=== PATIENT | female | born 1990 | race Caucasian/White ===

== ENCOUNTER 2021-07-13 17:32 | Outpatient (CLI) | payer OTHER, SELFPAY ==
[2021-07-13 17:51] VITALS: BP 145/79; PULSE 69; RESP 16; TEMP 36.8; O2SAT 98; BMI 53.1
[2021-07-13] MEDS: 0.9% Saline Lock 10 ML Syringe IV (18:10)
[2021-07-13 18:45] VITALS: BP 129/68; PULSE 70; RESP 16; TEMP 37.2; O2SAT 100
[2021-07-13 19:28] VITALS: BP 128/77; PULSE 66; RESP 16; TEMP 37.3; O2SAT 100
== END 2021-07-13 19:36 | disposition home or self-care (01) ==
LOC: MS3OUT 17:32 → MS3 17:34
PROVIDERS: Referring Provider Nurse Practitioner Adult Health; Visit Provider Nurse Practitioner Adult Health
DX: Z23 Encounter for immunization (principal); U07.1 COVID-19
CPT/HCPCS: J7050; M0245; Q0245; A4216

== ENCOUNTER 2022-05-26 10:11 | Emergency (ER) | payer OTHER, SELFPAY ==
[2022-05-26 10:12] VITALS: BP 119/60; PULSE 81; RESP 18; TEMP 36.5; O2SAT 98; BMI 54.8
--- NOTE | 2022-05-26 10:39 | ED.VIS.BACK ---
HPI History of Present Illness Chief Complaint: Back Informant: patient Onset/Context/Timing Onset: Today and Hours Context: Sudden Onset Injury: twisting Timing: Continuous Quality: Sharp Location: Thoracic Current Severity: Mild Maximum Severity: Moderate Worsened by: improves with Movement Relieved by: Remaining Still Associated Symptoms Associated Symptoms: Negative for Numbness, Tingling, Radiation to Right Leg, Radiation to Left Leg, Fever, Abdominal Pain, Dysuria, Unable to Ambulate, Unable to Transfer, Urinary Retention, Urinary Incontinence, Constipation or Fecal Incontinence Narrative Narrative: 31-year-old female past medical history of anxiety. Prior cholecystectomy and gastric sleeve. States she got up early this morning with stretching and had sudden onset of left paraspinal thoracic discomfort like she pulled something. She denies any numbness or weakness. No fever. No falls or trauma. She initially took a Flexeril and Advil without any significant relief. She took a second Flexeril this morning because she thought her prescription was old so she borrowed 1 from her mother and again no significant relief. It is worse with movement. Prior similar symptoms: No Recent Illness/Hospitalization: No PFSH PFSH Medical History Anxiety Home Medications fluoxetine 40 mg capsule 40 mg PO DAILY 05/26/22 [History Last Taken Unknown] metaxalone 800 mg tablet 800 mg PO TID PRN muscle pain 7 days #21 tabs 05/26/22 [Rx Last Taken Unknown] Allergy/AdvReac Type Severity Reaction Status Date / Time adhesive Allergy Rash Verified 05/26/22 10:13 lisinopril AdvReac GI upset Verified 05/26/22 10:13 Social History Smoking Status: Never smoker ROS ROS ED ROS Narrative Denies recent illness. Review of Systems ROS Unobtainable: Denies due to encephalopathy Constitutional Constitutional ED: Denies chills or fever(s) Eyes Eyes: Denies blurry vision ENT ENT ED: Denies ear pain Cardiovascular Cardiovascular: Denies chest pain Respiratory/Chest Respiratory/Chest: Denies dyspnea Gastrointestinal Gastrointestinal: Denies abdominal pain Genitourinary Genitourinary ED: Denies dysuria or hematuria Musculoskeletal Musculoskeletal: Reports back pain; Denies arthralgias or neck pain Integumentary Denies abscess Neurologic Neurologic: Denies headache(s) Psychiatric Psychiatric: Denies anxiety Endocrine Endocrinology: Denies cold intolerance Hematologic/Lymphatic Hematologic/Lymphatic: Denies easy bleeding Allergic/Immunologic Allergic/Immunologic ED: Denies mouth swelling EXAM Physical Exam Narrative Exam Narrative: 29-year-old female no acute distress. Vital signs stable afebrile. HEENT exam unremarkable. Neck nontender. Lungs clear to auscultation bilaterally. Heart regular rate and rhythm rate about 80 no murmur. Chest wall nontender. Abdomen soft nontender. Moving all 4 extremities. 5/5 psychosocial rehabilitation counselor strength. Dorsi plantarflexion intact. Normal motor strength both upper and lower extremities. Neurologic exam normal. Back exam there is reproducible paraspinal back pain along the mid thoracic spine between the lower scapula and thoracic spine. No ecchymosis or bruising. No redness or warmth. No signs of trauma. The reproducible pain is consistent where she states she has discomfort. Const Vital Signs: 05/26/22 10:12 Temperature 97.7 F L Temperature Source Temporal Pulse Rate 81 Respiratory Rate 18 Blood Pressure 119/60 Blood Pressure Mean 79 Pulse Ox 98 Oxygen Delivery Method Room Air Positive well nourished, well developed and obese; Negative for cachectic, contractures or unkempt General Appearance ED: well developed and NAD; Negative for unkempt, cachectic, contractures or pallor Nutritional Appearance: obese; Negative for cachectic HEENT Reports moist mucous membranes; Denies dry mucous membranes Negative for trauma or tenderness Mouth ED: No dry mucous membranes Mouth: No dry mucous membranes Eyes PERRL and EOMs intact bilaterally General Eye ED: Negative for pale conjunctiva Neck no lymphadenopathy, supple and no JVD General: Negative for tenderness Thyroid: Negative for other Chest Wall Chest: Negative for other Resp normal respiratory effort and clear to auscultation bilaterally Effort and Inspection: Negative for pain with movement Auscultation: Negative for rales, rhonchi or wheezes Cardio regular rate, regular rhythm, S1 normal heart sound, S2 normal heart sound and no murmurs Palpation: Negative for palpable S3 Rate: Negative for bradycardia Rhythm: Negative for abnormal rhythm GI normal to inspection, nondistended, normoactive bowel sounds, soft to palpation, non-tender, non-distended and no masses Inspection: Negative for abdominal distention Auscultation: Negative for hyperactive bowel sounds Palpation: Negative for tender or guarding Back/Spine normal to inspection; Negative for no thoracic nor lumbar tenderness Back/Spine Narrative: Left paraspinal soft tissue tenderness along the mid thoracic spine. Cervical Spine: Negative for cervical spine tenderness and Negative for paracervical muscle tenderness Thoracic Spine / Upper Back: paraspinal muscle tenderness left Lumbar Spine / Lower Back: Negative for ROM limited Extremity normal to inspection and no clubbing, cyanosis or edema General Extremety ED: Negative for edema or tenderness General Extremity: Negative for edema Neuro oriented x3 and no sensory deficits noted Sensorium / Orientation: alert; Negative for confused, lethargic or stuporous Motor Exam: strength 5/5 throughout; Negative for strength abnormal Psych mental status grossly normal Appearance: Negative for unkempt Attitude: No agitated Mood & Affect: Negative for depressed, sad or tearful Skin no rashes or lesions noted and no wounds General Skin Exam: Negative for jaundice or pallor Lesions: No lesion noted Rashes: No rashes noted Trauma: Negative for abrasion Wounds: Negative for wounds noted MDM MDM MDM Narrative Medical decision making narrative: 31-year-old female was stretching this morning and has parathoracic back pain consistent with myofascial strain. Otherwise exam is benign. She has normal motor strength and sensation. She will be treated with IM Toradol. P.o. Valium x1. Written for prescription for Skelaxin sent to her pharmacy. Clinically and historically this is all consistent with musculoskeletal back pain. Myofascial strain of her back. Discharge Plan Triage Chief Complaint: Back ED Provider: Josh Radford Dx/Rx/DC Orders Clinical Impression: Back strain Instructions: ED Back Pain (Acute or Chronic), ED Back Sprain/Strain Prescriptions: New metaxalone 800 mg tablet 800 mg PO TID PRN (Reason: muscle pain) 7 Days Qty: 21 0RF No Action fluoxetine 40 mg capsule 40 mg PO DAILY Primary Care Provider: Francy Hickey NP Referrals: Francy Hickey NP, [facility] [Primary Care Provider] - 1 Week if not improving Activity Restrictions/Additional Instructions: Your history and exam are consistent with a pulled muscle in your back. Hot shower, warm bath, massage and anti-inflammatories like Motrin, Advil or ibuprofen to decrease the pain and inflammation. The muscle relaxant Skelaxin 1 pill 3 times a day for a week. You should start seeing improvement by the third day. Follow-up with your primary care provider if not improving. Disposition Disposition: Home, Self Care
[2022-05-26] MEDS: diazePAM 5 MG Tablet 10 MG PO (10:51)
[2022-05-26] MEDS: Ketorolac 60 MG/2 ML Vial IM (10:51)
== END 2022-05-26 11:11 | disposition home or self-care (01) ==
PROVIDERS: Emergency Provider Emergency Medicine; PCP Registered Nurse; Visit Provider Emergency Medicine
DX: S39.012A Strain of muscle, fascia and tendon of lower back, initial encounter (principal); F41.9 Anxiety disorder, unspecified; E66.9 Obesity, unspecified; X50.1XXA Overexertion from prolonged static or awkward postures, initial encounter
CPT/HCPCS: 96372; 99283

== ENCOUNTER → 2022-11-23 | Outpatient (CLI) | payer OTHER, SELFPAY ==
[2022-11-23 13:04] LABS: D-Dimer Quantitative (DVT/PE) < 0.27 FEU/ug/m (0.27-0.49)
== END | disposition home or self-care (01) ==
PROVIDERS: PCP Registered Nurse; Referring Provider Registered Nurse; Visit Provider Registered Nurse
DX: R06.02 Shortness of breath (principal)
CPT/HCPCS: 36415; 85379

== ENCOUNTER 2023-09-24 12:58 | Emergency (ER) | payer OTHER, SELFPAY ==
[2023-09-24 12:59] VITALS: BP 163/102; PULSE 80; RESP 16; TEMP 36.1; O2SAT 100; BMI 62.6
--- NOTE | 2023-09-24 13:11 | EKG12_ITS ---
Test Reason : CHEST PAIN Blood Pressure : / mmHG Vent. Rate : 081 BPM Atrial Rate : 081 BPM P-R Int : 138 ms QRS Dur : 084 ms QT Int : 362 ms P-R-T Axes : 031 030 034 degrees QTc Int : 420 ms Normal sinus rhythm Normal ECG Confirmed by GIRISH IBRAHIM, YNES ([id number]), publishing editor CORRINA ANDERSON ([id number]) on 09/25/2023 10:12:10 AM Referred By: Confirmed By:YNES STOUT MD
--- NOTE | 2023-09-24 13:11 | RAD_ITS ---
EXAM: XR CHEST, 1 VIEW CLINICAL INDICATION: back pain, chest pain TECHNIQUE: Frontal view of the chest. COMPARISON: 10.19.12 FINDINGS: LUNGS AND PLEURAL SPACES: Lower lobe atelectasis. No pneumothorax. No effusion. HEART: Unremarkable. Cardiac silhouette not enlarged. MEDIASTINUM: Central airways and mediastinal contour are unremarkable. BONES/JOINTS: Unremarkable. No acute fracture. SOFT TISSUES: Unremarkable. UPPER ABDOMEN: There is an elevated right hemidiaphragm. RAD/Chest 1 View (Portable) IMPRESSION: No acute findings in the chest. Electronically Signed: Jaret Mohamud MD at 14:27 EST ,
--- NOTE | 2023-09-24 13:12 | EX.ED.UPPERE ---
HPI History of Present Illness Chief Complaint: Upper Extremity Injury Detail of Chief Complaint: Back and chest pain Informant: patient Narrative Narrative: Patient presents to the emergency room with complaint of pain in her back and chest that started when she woke up this morning. She is not sure if the pain was there when she woke up but she just did a little tiny stretch and noticed significant pain around her right shoulder blade. At times she has had pain, radiating into the front of her chest and some numbness and tingling to her right arm. She denies recent travel or surgery. She has no heart history. Otherwise healthy. She has not had any injury otherwise. Patient states that she did an online telemetry doc visit and was prescribed Flexeril. Patient continues to complain of discomfort. [facility] Medical History Anxiety Home Medications fluoxetine 40 mg capsule 40 mg PO DAILY 05/26/22 [History Last Taken Unknown] metaxalone 800 mg tablet 800 mg PO TID PRN muscle pain 7 days #21 tabs 05/26/22 [Rx Last Taken Unknown] hydrocodone-acetaminophen 5-325mg 5mg-325mg 1 tab PO Q4H PRN PRN Pain 2 days #15 TABLETS 09/24/23 [Rx Last Taken Unknown] Allergy/AdvReac Type Severity Reaction Status Date / Time adhesive Allergy Rash Verified 09/24/23 13:34 lisinopril AdvReac GI upset Verified 09/24/23 13:34 Social History Smoking Status: Never smoker ROS ROS ED Review of Systems ROS Unobtainable: other Constitutional Constitutional ED: Reports lethargy; Denies chills, fever(s), sweats or weight loss Eyes Eyes: Denies blurry vision, change in vision or diplopia ENT ENT ED: Denies rhinorrhea or sore throat Cardiovascular Cardiovascular: Reports chest pain; Denies orthopnea or racing heartbeat Respiratory/Chest Respiratory/Chest: Denies cough, dyspnea, dyspnea on exertion, orthopnea or sputum Gastrointestinal Gastrointestinal: Denies abdominal pain, diarrhea, nausea or vomiting Genitourinary Genitourinary ED: Denies dysuria, hematuria or urinary frequency Musculoskeletal Musculoskeletal: Reports back pain; Denies arthralgias, myalgias or neck pain Integumentary Denies abscess, Abrasions or rash Neurologic Neurologic: Denies headache(s) or weakness Psychiatric Psychiatric: Denies anxiety, depression or suicidal thoughts Endocrine Endocrinology: Denies polydipsia, polyphagia or polyuria Hematologic/Lymphatic Hematologic/Lymphatic: Denies easy bleeding, easy bruising or lymphadenopathy Allergic/Immunologic Allergic/Immunologic ED: Denies mouth swelling, tongue swelling or urticaria EXAM Physical Exam Const Vital Signs: 09/24/23 12:59 Temperature 96.9 F L Temperature Source Temporal Pulse Rate 80 Respiratory Rate 16 Blood Pressure 163/102 H Blood Pressure Mean 122 Pulse Ox 100 Oxygen Delivery Method Room Air Positive well nourished and well developed General Appearance ED: well developed and NAD HEENT Reports TM's clear and moist mucous membranes normocephalic and atraumatic; Negative for trauma or tenderness Tympanic Membrane ED: Yes TM's clear Eyes PERRL and EOMs intact bilaterally General Eye ED: Negative for pale conjunctiva or scleral icterus Neck no lymphadenopathy, supple and no JVD General: Negative for tenderness Chest Wall inspection of chest normal and palpation of chest normal Chest: Negative for tenderness Resp normal respiratory effort and clear to auscultation bilaterally Effort and Inspection: Negative for respiratory distress or pain with movement Auscultation: Negative for rhonchi, wheezes or diminished lung sounds Cardio regular rate, regular rhythm, S1 normal heart sound, S2 normal heart sound and no murmurs Peripheral Pulses: pulses 2+ throughout GI normal to inspection, nondistended, normoactive bowel sounds, soft to palpation, non-tender, non-distended and no masses Back/Spine no CVA tenderness and no thoracic nor lumbar tenderness Back/Spine Narrative: Tenderness palpation over the thoracic paraspinal musculature medial to the right scapula. Patient also with some tenderness over inferior portion of the scapula and infraspinatus musculature. Pain somewhat reproduces her discomfort but not completely. Extremity normal to inspection General Extremety ED: Negative for edema General Extremity: Negative for edema Neuro oriented x3, CN's II-XII intact bilaterally, no sensory deficits noted and gait normal Sensorium / Orientation: awake, alert, oriented to person, oriented to place and oriented to time Motor Exam: strength 5/5 throughout and strength abnormal Psych mental status grossly normal Skin no rashes or lesions noted and no wounds MDM MDM MDM Narrative Medical decision making narrative: Patient presents with upper back pain without any trauma. Seen via telehealth and written for Flexeril. Patient states she has had similar pain before on the opposite side that just resolves after several days. IV line established on arrival. EKG obtained showed a sinus rhythm with a rate of 81 bpm with no acute ST segment changes. CBC with differential was normal. Chemistries unremarkable. Patient had a D-dimer that was normal. Troponin was normal. Chest x-ray unremarkable. Patient was told She had pain like this that they would get x-rays of her back and she is requesting x-rays of her back. I did obtain thoracic spine x-rays which were essentially unremarkable. This point suspect likely musculoskeletal etiology. Patient will be given a prescription for hydrocodone for pain. She is to continue with the Flexeril and heating pad. Advised to follow-up with her primary care physician within next 3 to 5 days. Lab Data Attestation: I reviewed the patient's lab results. Discharge Plan Triage Chief Complaint: Upper Extremity Injury ED Provider: Ana Marshall Dx/Rx/DC Orders Clinical Impression: Back pain Instructions: ED Back Pain (Acute or Chronic) Prescriptions: New hydrocodone-acetaminophen [hydrocodone-acetaminophen] 5-325 mg tablet 1 tab PO Q4H PRN PRN (Reason: Pain) 2 Days Qty: 15 0RF No Action fluoxetine 40 mg capsule 40 mg PO DAILY metaxalone 800 mg tablet 800 mg PO TID PRN (Reason: muscle pain) 7 Days Qty: 21 0RF Primary Care Provider: Francy Hickey NP Referrals: Francy Hickey NP, [facility] [Primary Care Provider] - 3-5 Days Disposition Disposition: Home, Self Care
--- NOTE | 2023-09-24 13:14 | NURSING ---
NO OLD EKGS
[2023-09-24 13:36] LABS: Absolute Lymphocyte Count 3.45 X10^3/uL (0.83-4.51); Absolute Neutrophil Count 6.7 X10^3/uL (2.0-7.7); Basophil# 0.06 X10^3/uL; Basophil% 0.6 % (0-1); Eosinophil# 0.08 X10^3/uL; Eosinophils% 0.7 % (0-5); Hematocrit 42.8 % (37-47); Hemoglobin 13.4 g/dL (12.0-15.0); Lymphocyte # 3.45 X10^3/ul (0.83-4.51); Lymphocyte % 31.9 % (19-41); Mean Corp Hgb Conc 31.3 g/dL (32-36); Mean Corpuscular Hgb 26.2 pg (27.0-32.0); Mean Corpuscular Volume 83.6 fL (81-99); Mean Platelet Vol. 10.8 fl (6.2-12.0); Monocyte# 0.47 X10^3/uL; Monocyte% 4.4 % (0-10); NRBC Flagged by Analyzer 0 % (0-5); Neutrophil # 6.71 X10^3/uL (2.7-7.7); Neutrophil % 62.1 % (47-70); Platelet Count 281 K/mm3 (150-450); RBC Distribution Width CV 13.7 % (11.6-14.6); Red Blood Count 5.12 M/mm3 (4.2-5.4); White Blood Count 10.8 K/mm3 (4.4-11.0)
[2023-09-24] MEDS: Ondansetron 4 MG/2 ML Vial IV (13:38)
[2023-09-24] MEDS: Morphine 4 MG/ML Syringe IV (13:38)
[2023-09-24 13:43] VITALS: BP 138/86; PULSE 84; RESP 16; O2SAT 98
[2023-09-24 13:47] LABS: D-Dimer Quantitative (DVT/PE) < 0.27 FEU/ug/m (0.27-0.49)
[2023-09-24 13:57] LABS: Anion Gap 4 (5-15); BUN 13 mg/dL (7-18); BUN/Creat Ratio 18.1 RATIO (10-20); Calcium,Total 9.1 mg/dL (8.5-10.1); Chloride 112 mmol/L (98-107); Creatinine, Serum 0.72 mg/dL (0.55-1.02); EST Glomerular Filtration Rate 99 mL/min (>60); Est Glom Filt Rate - Afr Amer 120 mL/min (>60); Estimated Creatinine Clearance 166.18 ml/min; Glucose 111 mg/dL (74-106); Potassium 3.8 mmol/L (3.5-5.1); Sodium Level 140 mmol/L (136-145); Troponin-I HS 5 pg/mL (3.0-54.0)
--- NOTE | 2023-09-24 14:04 | RAD_ITS ---
EXAM: XR THORACIC SPINE, 2 VIEWS CLINICAL INDICATION: back pain TECHNIQUE: Frontal and lateral views of the thoracic spine. COMPARISON: No relevant prior studies available. FINDINGS: VERTEBRAE: Unremarkable. Preserved vertebral body height. No fracture. No spondylolisthesis. Preservation of the normal thoracic kyphosis. No significant facet arthropathy. DISC SPACES: Unremarkable. Disc spaces are maintained. RAD/Thoracic Spine 2 Views IMPRESSION: No evidence of thoracic spinal fracture or spondylolisthesis. Electronically Signed: Jaret Mohamud MD at 14:27 EST ,
--- OUTSIDE RECORDS SUMMARY | 2023-09-24 14:22 | XMS RPT_ITS | CCD ---
Author Name Unknown Address [address] [place] [address] Organization [facility] Care Team Providers Care Dope Mixer Name Role Phone Raysa POSEY, Matilde Unavailable Unavailable Haagen FERRIS WHEEL OPERATOR.MILITARY COMMUNICATIONS SPECIALIST, Francy Primary Care Provider Gina POSEY, Adela Unavailable Unavailable Haagen FERRIS WHEEL OPERATOR.MILITARY COMMUNICATIONS SPECIALIST, Francy Primary Care Provider Gina POSEY, Adela Unavailable Unavailable Haagen FERRIS WHEEL OPERATOR.MILITARY COMMUNICATIONS SPECIALIST, Francy Primary Care Provider Gina POSEY, Adela Unavailable Haagen FERRIS WHEEL OPERATOR.MILITARY COMMUNICATIONS SPECIALIST, Francy Primary Care Provider Gina POSEY, Adela Unavailable Gina POSEY, Adela Unavailable HAAGEN, FRANCY Attending Unavailable HAAGEN, FRANCY Primary Care Unavailable HAAGEN, FRANCY Primary Care Unavailable HAAGEN, FRANCY Primary Care Unavailable HAAGEN, FRANCY Referring Unavailable HAAGEN, FRANCY Primary Care Unavailable HAAGEN, FRANCY Referring Unavailable HAAGEN, FRANCY Primary Care Unavailable HAAGEN, FRANCY Referring Unavailable HAAGEN, FRANCY Primary Care Unavailable HAAGEN, FRANCY Referring Unavailable HAAGEN, FRANCY Primary Care Unavailable HAAGEN, FRANCY Primary Care Unavailable HAAGEN, FRANCY Attending Unavailable HAAGEN, FRANCY Primary Care Unavailable STAMPER, JAMES Referring Unavailable HAAGEN, FRANCY Attending Unavailable HAAGEN, FRANCY Primary Care Unavailable HAAGEN, FRANCY Primary Care Unavailable HAAGEN, FRANCY Attending Unavailable Allergies Allergy Classification Reported Allergen(s) Allergy Type Date of Onset Reaction(s) Facility (20 sources) Adhesive Tape; Translations: [ADHESIVE TAPE (ROSINS)] Propensity to adverse reactions to substance 3 Rash, Intolerance [facility] (20 sources) Lisinopril; Translations: [LISINOPRIL] Drug Allergy 1 GI Upset [facility] Medications Current Medications Medication Drug Class(es) Dates Sig (Normalized) Sig (Original) amoxicillin 875 mg / clavulanate 125 mg oral tablet (4 sources) Penicillin-class Antibacterial Start: 05-17-2023 End: 05-24-2023 take 1 tablet by mouth twice daily amoxicillin-clav ulanic acid (AUGMENTIN) 875-125 mg per tablet Take 1 tablet by mouth two times a day for 7 days. 14 tablet 0 05/17/2023 05/24/2023 Active Completed/Discontinued Medications Medication Drug Class(es) Dates Sig (Normalized) Sig (Original) cefdinir 300 mg oral capsule (4 sources) Cephalosporin Antibacterial Start: 11-21-2022 End: 12-01-2022 take 1 capsule by mouth twice daily cefdinir (OMNICEF) 300 mg capsule Indications: Symptoms of upper respiratory infection (URI) , Acute recurrent sinusitis, unspecified location Take 1 capsule by mouth twice daily for 10 days. 20 capsule 0 11/21/2022 12/01/2022 Problems Active Problems Problem Classification Problem Date Documented Date Episodic/Chronic Anxiety disorders (20 sources) Mixed anxiety and depressive disorder; Translations: [Anxiety disorder, unspecified] Onset: 05-02-2018 05-02-2018 Chronic Diverticulosis and diverticulitis (20 sources) Diverticulitis; Translations: [Diverticulitis of intestine, part unspecified, without perforation or abscess without bleeding] Onset: 12-19-2016 12-19-2016 Chronic Esophageal disorders (20 sources) Gastroesophageal reflux disease; Translations: [Gastro-esophageal reflux disease without esophagitis] Onset: 02-05-2014 02-05-2014 Chronic Headache; including migraine (20 sources) Migraine with aura; Translations: [Migraine with aura, not intractable, without status migrainosus] Onset: 10-29-2015 10-29-2015 Chronic Mood disorders (1 source) Major depressive disorder, recurrent, moderate; Translations: [Major depressive disorder, recurrent episode, moderate (HCC)] Onset: 11-21-2022 Chronic Nutritional deficiencies (20 sources) Vitamin D deficiency; Translations: [Vitamin D deficiency, unspecified] Onset: 07-22-2019 07-22-2019 Chronic Other bone disease and musculoskeletal deformities (1 source) Costal chondritis; Translations: [Chondrocostal junction syndrome [Tietze]] Episodic Other circulatory disease (1 source) Respiratory symptom; Translations: [Other specified symptoms and signs involving the circulatory and respiratory systems] Episodic Other endocrine disorders (20 sources) Polycystic ovary syndrome; Translations: [Polycystic ovarian syndrome] Onset: 04-06-2011 04-06-2011 Chronic Other lower respiratory disease (1 source) Dyspnea; Translations: [Shortness of breath] Episodic Other nutritional; endocrine; and metabolic disorders (20 sources) Morbid obesity; Translations: [Morbid (severe) obesity due to excess calories] Onset: 02-20-2015 02-20-2015 Chronic Other nutritional; endocrine; and metabolic disorders (2 sources) Severe obesity; Translations: [Morbid (severe) obesity due to excess calories] Chronic Other nutritional; endocrine; and metabolic disorders (1 source) Body mass index 40+ - severely obese; Translations: [Morbid (severe) obesity due to excess calories] Chronic Other nutritional; endocrine; and metabolic disorders (2 sources) Morbid (severe) obesity due to excess calories; Translations: [Class 3 severe obesity due to excess calories with body mass index (BMI) of 60.0 to 69.9 in adult, unspecified whether serious comorbidity present (HCC)] Onset: 06-20-2022 Chronic Other nutritional; endocrine; and metabolic disorders (1 source) Body mass index (BMI) 60.0-69.9, adult; Translations: [Class 3 severe obesity due to excess calories with body mass index (BMI) of 60.0 to 69.9 in adult, unspecified whether serious comorbidity present (HCC)] Onset: 11-21-2022 Chronic Other nutritional; endocrine; and metabolic disorders (1 source) Body mass index (BMI) 50.0-59.9, adult; Translations: [Class 3 severe obesity due to excess calories without serious comorbidity with body mass index (BMI) of 50.0 to 59.9 in adult (HCC)] Onset: 06-20-2022 Chronic Other skin disorders (2 sources) Finding of neck region; Translations: [Localized swelling, mass and lump, neck] Episodic Other upper respiratory disease (1 source) Nasal sinus problem; Translations: [Other specified disorders of nose and nasal sinuses] 05-17-2023 Episodic Residual codes; unclassified (1 source) History of clinical finding in subject; Translations: [Personal history of other specified conditions] 03-10-2023 Episodic Spondylosis; intervertebral disc disorders; other back problems (2 sources) Acute low back pain; Translations: [Acute midline low back pain without sciatica] Episodic Past or Other Problems Problem Classification Problem Date Documented Da te Episodic/Chronic Administrative/social admission (20 sources) Patient encounter status; Translations: [Dietary counseling and surveillance] Onset: 07-19-2012 09-29-2016 Episodic Cardiac dysrhythmias (2 sources) Palpitations; Translations: [Palpitations] Onset: 11-23-2022 Episodic Diabetes mellitus without complication (3 sources) Increased glucose level; Translations: [Other abnormal glucose] Onset: 11-21-2022 Episodic Immunizations and screening for infectious disease (20 sources) Positive measurement finding; Translations: [Nonspecific reaction to tuberculin skin test without active tuberculosis] Onset: 10-28-2013 08-02-2021 Episodic Malaise and fatigue (3 sources) Fatigue; Translations: [Other fatigue] Onset: 11-23-2022 Episodic Other bone disease and musculoskeletal deformities (1 source) Chondrocostal junction syndrome [Tietze]; Translations: [Costochondritis] Onset: 11-23-2022 Episodic Other circulatory disease (20 sources) H/O: hypertension; Translations: [Personal history of other diseases of the circulatory system] Onset: 10-28-2013 08-02-2021 Episodic Other circulatory disease (1 source) Other specified symptoms and signs involving the circulatory and respiratory systems; Translations: [Symptoms of upper respiratory infection (URI)] Onset: 11-21-2022 Episodic Other circulatory disease (1 source) Personal history of other diseases of the circulatory system; Translations: [History of high blood pressure] Onset: 08-03-2021 Episodic Other lower respiratory disease (1 source) Shortness of breath; Translations: [SOB (shortness of breath)] Onset: 11-23-2022 Episodic Other skin disorders (1 source) Localized swelling, mass and lump, neck; Translations: [Localized swelling, mass and lump, neck] Onset: 11-24-2022 Episodic Other upper respiratory infections (6 sources) Acute pansinusitis; Translations: [Acute pansinusitis, unspecified] Onset: 11-21-2022 Episodic Otitis media and related conditions (2 sources) Acute right otitis media; Translations: [Otitis media, unspecified, right ear] Onset: 06-20-2022 Episodic Residual codes; unclassified (20 sources) H/O: miscarriage; Translations: [Personal history of other complications of , childbirth and the puerperium] Onset: 10-28-2013 08-02-2021 Episodic Screening and history of mental health and substance abuse codes (20 sources) H/O: depression; Translations: [Personal history of other mental and behavioral disorders] Onset: 10-28-2013 08-02-2021 Episodic Sprains and strains (2 sources) Sprain of unspecified ligament of left ankle, initial encounter; Translations: [Sprain of unspecified ligament of left ankle, initial encounter] Onset: 05-06-2017 Episodic Results Test Name Value Interpretation Reference Range Facil ity Vital Signs Date Time Vital Sign Value Performing Clinician Jesus olivas 05-17-2023 07:28-0400 Body temperature 97.2 [degF] Fabienne Valentine APRN.MILITARY COMMUNICATIONS SPECIALIST Work Phone: [facility] 05-17-2023 07:28-0400 Diastolic blood pressure 80 mm[Hg] Fabienne Valentine APRN.MILITARY COMMUNICATIONS SPECIALIST Work Phone: [facility] 05-17-2023 07:28-0400 Heart rate 80 /min Fabienne Valentine APRN.MILITARY COMMUNICATIONS SPECIALIST Work Phone: [facility] 05-17-2023 07:28-0400 Respiratory rate 16 /min Fabienne Valentine APRN.MILITARY COMMUNICATIONS SPECIALIST Work Phone: [facility] 05-17-2023 07:28-0400 SaO2% (BldA) [Mass fraction] 99 % Fabienne Valentine APRN.MILITARY COMMUNICATIONS SPECIALIST Work Phone: [facility] 05-17-2023 07:28-0400 Systolic blood pressure 122 mm[Hg] Fabienne Valentine APRN.MILITARY COMMUNICATIONS SPECIALIST Work Phone: [facility] 11-23-2022 10:21-0400 Diastolic blood pressure 88 mm[Hg] Francy Hickey FERRIS WHEEL OPERATOR.MILITARY COMMUNICATIONS SPECIALIST Work Phone: [facility] 11-23-2022 10:21-0400 Heart rate 95 /min Francy Haagen FERRIS WHEEL OPERATOR.MILITARY COMMUNICATIONS SPECIALIST Work Phone: [facility] 11-23-2022 10:21-0400 Respiratory rate 18 /min Francy Haagen FERRIS WHEEL OPERATOR.MILITARY COMMUNICATIONS SPECIALIST Work Phone: [facility] 11-23-2022 10:21-0400 SaO2% (BldA) [Mass fraction] 98 % Francy Haagen FERRIS WHEEL OPERATOR.MILITARY COMMUNICATIONS SPECIALIST Work Phone: [facility] 11-23-2022 10:21-0400 Systolic blood pressure 136 mm[Hg] Francy Haagen FERRIS WHEEL OPERATOR.MILITARY COMMUNICATIONS SPECIALIST Work Phone: [facility] 11-21-2022 10:02-0400 Body height 160.5 cm Francy Haagen FERRIS WHEEL OPERATOR.MILITARY COMMUNICATIONS SPECIALIST Work Phone: [facility] 11-21-2022 10:02-0400 Body weight 160.03 kg Francy Haagen FERRIS WHEEL OPERATOR.MILITARY COMMUNICATIONS SPECIALIST Work Phone: [facility] 11-21-2022 10:02-0400 Diastolic blood pressure 98 mm[Hg] Francy Haagen FERRIS WHEEL OPERATOR.MILITARY COMMUNICATIONS SPECIALIST Work Phone: [facility] 11-21-2022 10:02-0400 Heart rate 88 /min Francy Haagen FERRIS WHEEL OPERATOR.MILITARY COMMUNICATIONS SPECIALIST Work Phone: [facility] 11-21-2022 10:02-0400 Respiratory rate 18 /min Francy Haagen FERRIS WHEEL OPERATOR.MILITARY COMMUNICATIONS SPECIALIST Work Phone: [facility] 11-21-2022 10:02-0400 SaO2% (BldA) [Mass fraction] 97 % Francy Haagen FERRIS WHEEL OPERATOR.MILITARY COMMUNICATIONS SPECIALIST Work Phone: [facility] 11-21-2022 10:02-0400 Systolic blood pressure 142 mm[Hg] Francy Haagen FERRIS WHEEL OPERATOR.MILITARY COMMUNICATIONS SPECIALIST Work Phone: [facility] 06-20-2022 09:51-0500 Body temperature 99.19 [degF] Francy Haagen FERRIS WHEEL OPERATOR.MILITARY COMMUNICATIONS SPECIALIST Work Phone: [facility] 06-20-2022 09:51-0500 Body weight 154.22 kg Francy Haagen FERRIS WHEEL OPERATOR.MILITARY COMMUNICATIONS SPECIALIST Work Phone: [facility] 06-20-2022 09:51-0500 Diastolic blood pressure 84 mm[Hg] Francy Haagen FERRIS WHEEL OPERATOR.MILITARY COMMUNICATIONS SPECIALIST Work Phone: [facility] 06-20-2022 09:51-0500 Heart rate 93 /min Francy Haagen FERRIS WHEEL OPERATOR.MILITARY COMMUNICATIONS SPECIALIST Work Phone: [facility] 06-20-2022 09:51-0500 Respiratory rate 18 /min Francy Haagen FERRIS WHEEL OPERATOR.MILITARY COMMUNICATIONS SPECIALIST Work Phone: [facility] 06-20-2022 09:51-0500 SaO2% (BldA) [Mass fraction] 99 % Francy Hickey FERRIS WHEEL OPERATOR.MILITARY COMMUNICATIONS SPECIALIST Work Phone: [facility] 06-20-2022 09:51-0500 Systolic blood pressure 126 mm[Hg] Francy Haagen FERRIS WHEEL OPERATOR.MILITARY COMMUNICATIONS SPECIALIST Work Phone: [facility] 05-27-2022 11:21-0400 Diastolic blood pressure 64 mm[Hg] Filomena Zurlaurack FERRIS WHEEL OPERATOR.MILITARY COMMUNICATIONS SPECIALIST Work Phone: [facility] 05-27-2022 11:21-0400 Heart rate 64 /min Filomena Salazar FERRIS WHEEL OPERATOR.MILITARY COMMUNICATIONS SPECIALIST Work Phone: [facility] 05-27-2022 11:21-0400 Respiratory rate 18 /min Filomena Lujanck FERRIS WHEEL OPERATOR.MILITARY COMMUNICATIONS SPECIALIST Work Phone: [facility] 05-27-2022 11:21-0400 Systolic blood pressure 132 mm[Hg] Filomena Zurawick FERRIS WHEEL OPERATOR.MILITARY COMMUNICATIONS SPECIALIST Work Phone: [facility] 05-06-2022 13:09-0400 Body weight 151.05 kg Francy Haguevara FERRIS WHEEL OPERATOR.MILITARY COMMUNICATIONS SPECIALIST Work Phone: [facility] Encounters Encounter Date Encounter Type Care Provider Facility Start: 09-24-2023 End: 09-24-2023 ambulatory Wilbur Hamilton FERRIS WHEEL OPERATOR.MILITARY COMMUNICATIONS SPECIALIST Work Phone: Telemedicine Procedures Date Procedure Procedure Detail Performing Clinician Start: 11-24-2022 Us soft tissue head & neck real time imge docm Francy Hickey FERRIS WHEEL OPERATOR.MILITARY COMMUNICATIONS SPECIALIST Work Phone: Start: 11-23-2022 End: 11-23-2022 Culture bacterial quanttative colony count urine Francy Hickey FERRIS WHEEL OPERATOR.MILITARY COMMUNICATIONS SPECIALIST Work Phone: Start: 11-23-2022 Urnls dip stick/tabl et rgnt auto w/o microscopy Francy Hickey FERRIS WHEEL OPERATOR.MILITARY COMMUNICATIONS SPECIALIST Work Phone: Start: 11-21-2022 SARSCOV2 & INF A&B AMP PRB Francy Hickey FERRIS WHEEL OPERATOR.MILITARY COMMUNICATIONS SPECIALIST Work Phone: Start: 06-20-2022 Hemoglobin A1c/Hemoglobin.total in Blood Francy Hickey FERRIS WHEEL OPERATOR.MILITARY COMMUNICATIONS SPECIALIST Work Phone: Start: 05-06-2022 PFIZER-BIONTECH COVI D-19 BIVALENT BOOSTER VACCINE, AGE 12+ YR Drake Allen DO Work Phone: Plan of Treatment Date Care Activity Detail Author Start: 03-16-2028 Urine microalbumin profile [facility] Start: 03-04-2024 PAP TESTING PAP TESTING [facility] Start: 03-04-2024 Screening for malign ant neoplasm of cervix Pap Testing [facility] Start: 09-13-2023 End: 12-13-2023 25-hydroxyvitamin D3 [Mass/volume] in Serum or Plasma VITAMIN D 25 HYDROXY Lab Routine Vitamin D deficiency Expected: 09/13/2023, Expires: 12/13/2023 [facility] Work Phone: Immunizations Immunization Date Immunization Notes Care Provider Em [facility] 06-05-2023 influenza virus vaccine, unspecified formulation Adela Fuentes RN Work Phone: [facility] 05-06-2022 COVID-19 booster vaccine, age 12+ yr, bivalent (PFIZER-BIONTECH) [place] Nurse Work Phone: [facility] Work Phone: 05-06-2022 influenza virus vaccine, unspecified formulation Filomena Zurfaina FERRIS WHEEL OPERATOR.MILITARY COMMUNICATIONS SPECIALIST Work Phone: [facility] 05-28-2021 influenza virus vaccine, unspecified formulation Madonna Valentino [facility] 09-10-2020 COVID-19 vaccine, fu ll dose (MODERNA) Madonna Valentino [facility] 08-13-2020 COVID-19 vaccine, fu ll dose (MODERNA) Madonna Avelar [facility] 05-31-2018 influenza virus vaccine, unspecified formulation Madonna Fossabhinavlucho [facility] 03-16-2018 tetanus toxoid, redu whitney diphtheria toxoid, and acellular pertussis vaccine, adsorbed Madonna Avelar [facility] Work Phone: 05-16-2017 influenza virus vaccine, unspecified formulation Madonna Susanalucho [facility] 05-10-2016 influenza virus vaccine, unspecified formulation Madonna Avelar [facility] 05-20-2015 influenza virus vaccine, unspecified formulation Madonna Avelar [facility] 05-13-2013 influenza virus vaccine, unspecified formulation Madonna Frudae [facility] Work Phone: 05-07-2012 influenza virus vaccine, live, attenuated, for intranasal use Madonna Avelar [facility] 06-07-2011 influenza virus vaccine, whole virus Madonna Avelar [facility] 05-07-2011 influenza virus vaccine, unspecified formulation Madonna Valentino [facility] 04-06-2011 human papilloma viru s vaccine, quadrivalent Madonna Avelar [facility] Work Phone: 04-03-2008 hepatitis B vaccine, adult dosage Madonna Avelar [facility] 04-03-2008 human papilloma viru s vaccine, quadrivalent Madonna Avelar [facility] 04-03-2008 hepatitis B vaccine, unspecified formulation Adela Fuentes [facility] 02-13-2008 hepatitis B vaccine, adult dosage Madonna Avelar [facility] Work Phone: 02-13-2008 human papilloma viru s vaccine, quadrivalent Madonna Avelar [facility] Work Phone: 02-13-2008 tetanus toxoid, redu whitney diphtheria toxoid, and acellular pertussis vaccine, adsorbed Madonna Avelar [facility] Work Phone: 03-26-2002 measles, mumps and rubella virus vaccine Madonna Avelar [facility] Work Phone: 08-09-1994 DTP-Haemophilus influenzae type b conjugate vaccine Madonna Avelar [facility] Work Phone: 08-09-1994 poliovirus vaccine, inactivated Madonna Avelar [facility] Work Phone: 03-05-1991 DTP-Haemophilus influenzae type b conjugate vaccine Madonna Avelar [facility] Work Phone: 03-05-1991 poliovirus vaccine, inactivated Madonna Avelar [facility] Work Phone: 12-04-1990 haemophilus influenz ae type b vaccine, PRP-D conjugate Madonna Avelar [facility] Work Phone: 12-04-1990 measles, mumps and rubella virus vaccine Madonna Avelar [facility] Work Phone: 08-16-1990 haemophilus influenz ae type b vaccine, PRP-D conjugate Madonna Avelar [facility] Work Phone: 02-15-1990 DTP-Haemophilus influenzae type b conjugate vaccine Madonna Avelar [facility] Work Phone: 1989 DTP-Haemophilus influenzae type b conjugate vaccine Madonna Avelar [facility] Work Phone: 1989 poliovirus vaccine, inactivated Madonna Avelar [facility] Work Phone: 1989 DTP-Haemophilus influenzae type b conjugate vaccine Madonna Avelar [facility] Work Phone: 1989 poliovirus vaccine, inactivated Madonna Avelar [facility] Work Phone: Payers Date Payer Category Payer Private Health Insurance EHP AET NA EHP STAFF/NON STAFF / EHP [facility] [id number] 2021-Present [address] [place] [address] EPO [id number] 2021 Private Health Insurance [id number] 2021 Unknown [id number] 2019 Unknown [employer] [id number] 08/07/2019-Present [address] [place] [address] Indemnity [id number] 12-26-2017 Unknown ATTN PT FINANCIA L S SELF PAY DD5 SELF 12/26/2017-Present [address] [place] [address] Indemnity SELF [id number] 02-18-2009 Unknown [id number] 02-18-2009 Unknown [id number] Social History Date Type Detail Facility Start: 05-27-2022 Tobacco smoking stat [facility] Never smoked tobacco [facility] Start: 10-01-2021 End: 09-24-2023 Alcohol intake Current drinker of alcohol (finding) [facility] Start: 07-27-2021 History SDOH Alcohol Frequency 2 [facility] Start: 07-27-2021 History SDOH Alcohol Std Drinks 1 [facility] Start: 10-28-2013 History SDOH Alcohol Comment occassional wine, NOT WHILE [facility] Start: 07-27-2021 History SDOH Social Connections Phone 5 [facility] Start: 07-27-2021 History SDOH Social Connections Living 3 [facility] Start: 12-26-2019 Education 14 [facility] Start: 1990 Sex Assigned At Not on file C [facility] Start: 05-27-2022 Tobacco use and exposure Smoke less tobacco non-user [facility] Start: 05-17-2022 End: 05-27-2022 Exposure to SARS-CoV-2 (event) Not sure [facility] Start: 07-27-2021 End: 06-05-2023 History of Social function [facility] Start: 07-27-2021 End: 06-05-2023 Social connection and isolation panel [facility] Do you belong to any clubs or organizations such as episcopalian groups, unions, fraternal or athletic groups, or school groups? Yes [facility] Are you now , , , , never or living with a partner? [facility] How often to you hav e a drink containing alcohol? Monthly or less [facility] How many standard dr inks containing alcohol do you have on a typical day? 1 or 2 [facility] How often do you hav e 6 or more drinks on 1 occasion? Never [facility] How hard is it for y ou to pay for the very basics like food, housing, medical care, and heating Not hard at all [facility] Do you feel stress - tense, restless, nervous, or anxious, or unable to sleep at night because your mind is troubled all the time - these days [OSQ] Very much [facility] (I/We) worried wheth er (my/our) food would run out before (I/we) got money to buy more. Never true [facility] In the past 12 month s, was there a time when you were not able to pay the mortgage or rent on time? No [facility] Clinical Notes 12-24-2014 to 09-24-2023 Patient InstructionsWilbur Hamilton APRN.CNP - 09/24/2023 7:28 AM ESTEHP Outreach Note - Adela Fuentes RN - 09/13/2023 11:48 AM ESTPatient InstructionsPatient InstructionsPatient Instructions Note Date & Type Note Facility 09-24-2023 Instructions Wilbur Hamilton APRN.CNP - 09/24/2023 7:37 AM EST Would continue other supportive and symptomatic treatments as discussed documented in this encounter [facility] 09-24-2023 History of Presen t illness Narrative Telemedicine Visit - Distance Health Virtual Visit Note Patient seen on [email or web address] Video Visit platform. Location of patient: [place] Francy Hickey APRN.CNP History of Present Illness Yocasta Bains is a 33 year old female who reports she this morning she was stretching in bed and developed right and left upper back pain, around her shoulder blades. Denies other specific injury or trauma. Has had similar in the past. Took Aleve with some relief but reports the spasms are the worst part. ROM to both shoulders d/t pain, can perform full ROM but very painful. PAST MEDICAL HISTORY Diagnosis Date Anemia Closed fracture of unspecified part of radius with ulna(813.83) 02/2001 LEFT Depression 12/19/2012 Essential hypertension, benign LGSIL on Pap smear of cervix Migraine with aura and without status migrainosus, not intractable 10/29/2015 Obesity, morbid (more than 100 lbs over ideal weight or BMI > 40) (HCC) 05/08/2012 Polycystic ovarian disease Pyelonephritis AGE 5 Snoring 05/08/2012 PAST SURGICAL HISTORY Procedure Laterality Date APPENDECTOMY 2000 GASTRIC BYPASS HX 09/2011 LAPAROSCOPIC CHOLECYSTECTOMY 12/29/03 MIDLINE INSERTION/CONSULT 09/26/2012 MIDLINE INSERTION/CONSULT 10/11/2012 FAMILY HISTORY Problem Relation Age of Onset Hypertension Mother Hyperlipidemia Mother other (diverticulitis) Mother Hypertension Father Prostate Cancer Father Heart Attack Father Hyperlipidemia Father Diabetes Father Hypertension Maternal Grandmother Cataract Maternal Grandmother Heart Paternal Grandfather DE other (Other) Maternal Grandfather RENAL STONES No Known Problems Sister Diabetes Paternal Grandmother Blindness Paternal Grandmother Macular Degen Paternal Grandmother Social History Tobacco Use Smoking status: Never Smokeless tobacco: Never Substance Use Topics Alcohol use: Yes Comment: occassional wine, NOT WHILE Drug use: No Current Outpatient Medications Medication Sig FLUoxetine (PROZAC) 40 mg capsule Take 1 capsule by mouth once daily. scopolamine (TRANSDERM-SCOP) patch 1.5 mg/72 hr (delivers 1 mg over 3 days) Apply 1 Patch as directed every 72 hours. Apply patch to skin behind ear 4hrs prior to travel. cholecalciferol, Vitamin D3, (VITAMIN D3) 1,250 mcg (50,000 unit) cap capsule Take 1 capsule by mouth one time a week. metaxalone (SKELAXIN) 800 mg tablet Take 800 mg by mouth three times daily. cholecalciferol (VITAMIN D-3) 2,000 unit tablet Take 1 tablet by mouth once daily. esomeprazole (NEXIUM) 40 mg capsule Take 1 capsule by mouth once daily. SUMAtriptan (IMITREX) 50 mg tablet 1 tablet by mouth as needed for migraine. May repeat every 2 hrs as needed for migraine (max 4/day) levonorgestrel (MIRENA) 20 mcg/24 hr (5 years) IUD Inserted in office MULTIVIT-MINERALS/FERROUS FUM (MULTI VITAMIN ORAL) Take by mouth once daily. No current facility-administered medications for this visit. ALLERGIES Allergen Reactions Lisinopril GI Upset Tape [Adhesive Tape* Rash, Intolerance Video Exam (Examination performed via Video enabled technology) General appearance: Alert, oriented, pleasant, in NAD :Yes Ill appearing :No Lethargic appearing :No Respiratory distress :No Able to raise both arms above her head but with increased pain ASSESSMENT/PLAN: 1. Upper back pain - ICD9: 724.5, ICD10: M54.9 - CYCLOBENZAPRINE 10 MG TABLET Appears consistent with sprain/strain or similar soft tissue injury given characteristics, location and lack of specific injury or trauma. She has used SMR in the past with good relief, feel reasonable to try again and recommended she continue NSAIDs and topical treatments. PLAN: - Red flags discussed for need for in person care - All questions answered Wilbur Hamilton, ROSI.MILITARY COMMUNICATIONS SPECIALIST I have communicated my name and active licensure. The patient's identity and physical location were verified at the time of this visit. Either the patient or their legal group sales representative has been informed of the risks and benefits of -- and alternatives to -- treatment through a remote evaluation and consents to proceed with the evaluation remotely. If you let us know who your primary care provider is, we will send them a notification of today's visit through our electronic medical records system. Since not all providers have access to our notifications, we strongly encourage you to share the following record of today's visit with your primary care provider at your next visit. This will help in providing you the best care. If you do not have an established Primary Care physician and would like to continue care with a [facility] Virtual Primary Care physician, please ask your provider to place a Establish Primary Care order. Use [employer] to manage your care, wherever you are, 27/02, on your mobile device or computer. [employer] connects you to [employer] so you can access all your health information in one place and also schedule and request virtual appointments with primary care providers. documented in this encounter [facility] 09-13-2023 Miscellaneous Notes 09/13/23: emailed program update [email or web address] follow up and resources-Scheduled next outreach in December due to this coronary care unit nurse will be out of the office and member is not moving int change habits. Last ov: 06/05/23-PCP Health visit form needed: no 09/13/23 WEIGHT GOAL 330 lbs 4 BMI Points Last 3 Encounter BP Readings: Date: BP: 06/05/2023 128/84-PCP 05/17/2023 122/80 11/28/2022 110/70 Last 3 LDL readings: LDL Cholesterol (mg/dL) Date Value 07/20/2019 95 07/05/2018 84 09/28/2016 91 LDL Cholesterol, Nonfasting (mg/dL) Date Value 12/23/2020 98 MEDICATIONS PER RX DATABASE Not taking phentermine consistently Adherent with medication refills N/A Date Verified 09/13/2023 Is member submitting receipts for Reimbursement N/A Is member eligible for medication reimbursement No Is Employee Health Plan primary Yes Member resides in state of [place] (located in member inquiry under [employer]) documented in this encounter [facility] 07-12-2023 Miscellaneous Notes 07/12/23: emailed program update request WEIGHT GOAL 330 lbs 4 BMI Points Last OV: 06/05/23-PCP Last 3 Encounter BP Readings: Date: BP: 06/05/2023 128/84-PCP 05/17/2023 122/80 11/28/2022 110/70 Last 3 LDL readings: LDL Cholesterol (mg/dL) Date Value 07/20/2019 95 07/05/2018 84 09/28/2016 91 LDL Cholesterol, Nonfasting (mg/dL) Date Value 12/23/2020 98 MEDICATIONS PER RX DATABASE Phentermine Adherent with medication refills N/A Date Verified 07/12/2023 Is member submitting receipts for Reimbursement N/A Is member eligible for medication reimbursement No Is Employee Health Plan primary Yes documented in this encounter [facility] 06-05-2023 Note HNO ID: [id number] Author: Francy Hickey APRN.MILITARY COMMUNICATIONS SPECIALIST Service: ? Author Type: Nurse Practitioner Type: Progress Notes Filed: 06/05/2023 1:16 PM Note Text: This is a 32 year old female who presents today with: Patient presents with: Recheck: Follow up HISTORY OF PRESENT ILLNESS: Yocasta Bains is a 32 year old female. Patient presents with: Recheck: Follow up Pt presents today to discuss adipex. Her spouse is taking mounjaro, which has been helpful, but they are paying out of pocket for the mediation. Can't afford to both be taking. Refers adipex has worked in the past. Signed up for weight watchers. Maybe getting a dog today, so plans on being more active. Eats well throughout the early day, but then snacking is her downfall. Works from home. She is trying to be proactive and lose weight before she develops any comorbidities. PAST MEDICAL HISTORY: PAST MEDICAL HISTORY Diagnosis Date Anemia Closed fracture of unspecified part of radius with ulna(813.83) 02/2001 LEFT Depression 12/19/2012 Essential hypertension, benign LGSIL on Pap smear of cervix Migraine with aura and without status migrainosus, not intractable 10/29/2015 Obesity, morbid (more than 100 lbs over ideal weight or BMI > 40) (HCC) 05/08/2012 Polycystic ovarian disease Pyelonephritis AGE 5 Snoring 05/08/2012 PAST SURGICAL HISTORY Procedure Laterality Date APPENDECTOMY 2000 GASTRIC BYPASS HX 09/2011 LAPAROSCOPIC CHOLECYSTECTOMY 12/29/03 MIDLINE INSERTION/CONSULT 09/26/2012 MIDLINE INSERTION/CONSULT 10/11/2012 ALLERGIES Lisinopril and Tape [Adhesive Tape (Rosins)] MEDICATIONS Current Outpatient Medications Medication Sig scopolamine (TRANSDERM-SCOP) patch 1.5 mg/72 hr (delivers 1 mg over 3 days) Apply 1 Patch as directed every 72 hours. Apply patch to skin behind ear 4hrs prior to travel. cholecalciferol, Vitamin D3, (VITAMIN D3) 1,250 mcg (50,000 unit) cap capsule Take 1 capsule by mouth one time a week. metaxalone (SKELAXIN) 800 mg tablet Take 800 mg by mouth three times daily. FLUoxetine (PROZAC) 40 mg capsule Take 1 capsule by mouth once daily. cholecalciferol (VITAMIN D-3) 2,000 unit tablet Take 1 tablet by mouth once daily. esomeprazole (NEXIUM) 40 mg capsule Take 1 capsule by mouth once daily. SUMAtriptan (IMITREX) 50 mg tablet 1 tablet by mouth as needed for migraine. May repeat every 2 hrs as needed for migraine (max 4/day) levonorgestrel (MIRENA) 20 mcg/24 hr (5 years) IUD Inserted in office MULTIVIT-MINERALS/FERROUS FUM (MULTI VITAMIN ORAL) Take by mouth once daily. No current facility-administered medications for this visit. FAMILY HISTORY Problem Relation Age of Onset Hypertension Mother Hyperlipidemia Mother other (diverticulitis) Mother Hypertension Father Prostate Cancer Father Heart Attack Father Hyperlipidemia Father Diabetes Father Hypertension Maternal Grandmother Cataract Maternal Grandmother Heart Paternal Grandfather DE other (Other) Maternal Grandfather RENAL STONES No Known Problems Sister Diabetes Paternal Grandmother Blindness Paternal Grandmother Macular Degen Paternal Grandmother Social History Tobacco Use Smoking status: Never Smokeless tobacco: Never Substance Use Topics Alcohol use: Yes Comment: occassional wine, NOT WHILE Drug use: No EXAM: BP 128/84 Pulse 87 Resp 16 Wt (!) 163.6 kg (360 lb 9.6 oz) LMP 10/31/2016 (Exact Date) SpO2 98% BMI 63.50 kg/m? PHYSICAL EXAM: General Appearance: Well appearing, alert, in no acute distress, well-hydrated, well nourished.. Skin: Skin color, texture, turgor normal, no suspicious rashes or lesions. Head: Normocephalic, no masses, lesions, tenderness or abnormalities. Eyes: Anicteric sclera. Extraocular movements are intact. . Lungs: Lungs clear to auscultation. No wheezing, rhonchi, rales.. Heart: RRR without murmur, gallop, or rubs. No ectopy. Neurologic: Gait normal. ASSESSMENT/PLAN: 1. Class 3 severe obesity due to excess calories without serious comorbidity with body mass index (BMI) of 60.0 to 69.9 in adult ([facility]) - ICD9: 278.01, V85.44, ICD10: E66.01, Z68.44 (primary diagnosis) Weight increasing - Pharmacological intervention - PHENTERMINE 37.5 MG TABLET Discussed requirements of 5% weight loss in 3 months and must maintain to continue the medication. Medication agreement and tox screen ordered today. - Start Weight Watchers. - Reduce sugary drinks of artificial juices and sodas and replace with water and low calorie Crystal Light. - Healthy Snack alternatives have been discussed and will attempt more fruits and vegetables. - encouraged 3 meals a day - Continue exercise or meaningful activity for 20 minutes at lest 3 times a week 2. Medication management - ICD9: V58.69, ICD10: Z79.899 - TOX SCREEN ROUT UR - PAIN PANEL, UR QUANT - PAIN PANEL, UR QUANT - SPECIMEN VALIDITY, URINE 3. Encounter for immunization - (more content not included)... [facility] 05-17-2023 Note HNO ID: [id number] Author: Fabienne Valentine APRN.MILITARY COMMUNICATIONS SPECIALIST Service: ? Author Type: Nurse Practitioner Type: Progress Notes Filed: 05/17/2023 7:52 AM Note Text: Subjective The history is provided by the patient. No hourly sign language interpreter was used. HPI Yocasta Bains is a 32 year old female who presents today for CC of nasal congestion, sinus pressure and drainage for almost 7 days, and worsening significantly. Worse on right side. She has used otC mucinex d without relief. She did a home covid test that was negative, declines rsv, flu testing. BP 122/80 Pulse 80 Temp 36.2 ?C (97.2 ?F) Resp 16 LMP 10/31/2016 (Exact Date) SpO2 99% Social History Tobacco Use Smoking status: Never Smokeless tobacco: Never Substance Use Topics Alcohol use: Yes Comment: occassional wine, NOT WHILE Drug use: No PAST MEDICAL HISTORY Diagnosis Date Anemia Closed fracture of unspecified part of radius with ulna(813.83) 02/2001 LEFT Depression 12/19/2012 Essential hypertension, benign LGSIL on Pap smear of cervix Migraine with aura and without status migrainosus, not intractable 10/29/2015 Obesity, morbid (more than 100 lbs over ideal weight or BMI > 40) (HCC) 05/08/2012 Polycystic ovarian disease Pyelonephritis AGE 5 Snoring 05/08/2012 I have confirmed and edited as necessary, the [facility] Review of Systems Constitutional: Positive for fever and malaise/fatigue. Negative for chills. HENT: Positive for congestion and sinus pain. Negative for ear pain and sore throat. Respiratory: Negative for cough, sputum production, shortness of breath and wheezing. Cardiovascular: Negative for chest pain. Musculoskeletal: Negative for myalgias. Neurological: Negative for headaches. Objective Physical Exam Vitals and nursing note reviewed. HENT: Head: Normocephalic and atraumatic. Right Ear: Tympanic membrane, ear canal and external ear normal. Left Ear: Tympanic membrane, ear canal and external ear normal. Nose: Mucosal edema, congestion and rhinorrhea present. Right Sinus: Maxillary sinus tenderness and frontal sinus tenderness present. Left Sinus: No maxillary sinus tenderness or frontal sinus tenderness. Mouth/Throat: Pharynx: Uvula midline. No oropharyngeal exudate or posterior oropharyngeal erythema. Cardiovascular: Rate and Rhythm: Normal rate and regular rhythm. Heart sounds: Normal heart sounds. Pulmonary: Effort: Pulmonary effort is normal. Breath sounds: Normal breath sounds. Lymphadenopathy: Head: Right side of head: No submental, submandibular or tonsillar adenopathy. Left side of head: No submental, submandibular or tonsillar adenopathy. Cervical: No cervical adenopathy. Skin: General: Skin is warm and dry. Neurological: Mental Status: She is alert. Psychiatric: Mood and Affect: Affect normal. ASSESSMENT/PLAN: 1. URI, acute - ICD9: 465.9, ICD10: J06.9 (primary diagnosis) - Discussed viral etiology and rationale for treatment - advised to start augmetin if no improvement after sudafed/flonase - Symptomatic treatment with prn analgesia - Supportive care with fluids and rest 2. Sinus pressure - ICD9: 478.19, ICD10: J34.89 - Will begin treatment with Augmentin 875 mg PO BID for 7 days - The patient should also use sudafed, flonase - Supportive care with plenty of fluids, rest, and analgesia prn. - Follow up in one week if symptoms persist or worsen. Diagnosis and treatment plan were discussed and questions were answered to the patient's satisfaction. Pt acknowledged understanding of concepts and follow up plan. Specific signs and symptoms that would indicate the need for higher level of care were discussed in detail warranting prompt ER evaluation. Fabienne Valentine APRN.CNP [facility] 05-17-2023 Instructions Fabienne Valentine APRN.CNP - 05/17/2023 7:51 AM EDT Tylenol (generic acetaminophen) 500 mg-2 tabs every 8 hrs. as needed for fever and aches Ibuprofen 600 mg (3-200mg tablets) every 6 hours -Sudafed (generic is fine), behind the counter, 2x30 mg tabs twice daily as needed for congestion Flonase or Nasonex 2 sprays in each nostril once a day If no improvement start Augmentin as ordered for 7 days Probiotic: Florajen, Culturelle, Align. Do not take with antibiotic, make sure 2 hours between. documented in this encounter [facility] 05-17-2023 History of Presen t illness Narrative Subjective The history is provided by the patient. No hourly sign language interpreter was used. HPI Yocasta Bains is a 32 year old female who presents today for CC of nasal congestion, sinus pressure and drainage for almost 7 days, and worsening significantly. Worse on right side. She has used otC mucinex d without relief. She did a home covid test that was negative, declines rsv, flu testing. BP 122/80 Pulse 80 Temp 36.2 C (97.2 F) Resp 16 LMP 10/31/2016 (Exact Date) SpO2 99% Social History Tobacco Use Smoking status: Never Smokeless tobacco: Never Substance Use Topics Alcohol use: Yes Comment: occassional wine, NOT WHILE Drug use: No PAST MEDICAL HISTORY Diagnosis Date Anemia Closed fracture of unspecified part of radius with ulna(813.83) 02/2001 LEFT Depression 12/19/2012 Essential hypertension, benign LGSIL on Pap smear of cervix Migraine with aura and without status migrainosus, not intractable 10/29/2015 Obesity, morbid (more than 100 lbs over ideal weight or BMI > 40) ([facility]) 05/08/2012 Polycystic ovarian disease Pyelonephritis AGE 5 Snoring 05/08/2012 I have confirmed and edited as necessary, the [facility] Review of Systems Constitutional: Positive for fever and malaise/fatigue. Negative for chills. HENT: Positive for congestion and sinus pain. Negative for ear pain and sore throat. Respiratory: Negative for cough, sputum production, shortness of breath and wheezing. Cardiovascular: Negative for chest pain. Musculoskeletal: Negative for myalgias. Neurological: Negative for headaches. Objective Physical Exam Vitals and nursing note reviewed. HENT: Head: Normocephalic and atraumatic. Right Ear: Tympanic membrane, ear canal and external ear normal. Left Ear: Tympanic membrane, ear canal and external ear normal. Nose: Mucosal edema, congestion and rhinorrhea present. Right Sinus: Maxillary sinus tenderness and frontal sinus tenderness present. Left Sinus: No maxillary sinus tenderness or frontal sinus tenderness. Mouth/Throat: Pharynx: Uvula midline. No oropharyngeal exudate or posterior oropharyngeal erythema. Cardiovascular: Rate and Rhythm: Normal rate and regular rhythm. Heart sounds: Normal heart sounds. Pulmonary: Effort: Pulmonary effort is normal. Breath sounds: Normal breath sounds. Lymphadenopathy: Head: Right side of head: No submental, submandibular or tonsillar adenopathy. Left side of head: No submental, submandibular or tonsillar adenopathy. Cervical: No cervical adenopathy. Skin: General: Skin is warm and dry. Neurological: Mental Status: She is alert. Psychiatric: Mood and Affect: Affect normal. ASSESSMENT/PLAN: 1. URI, acute - ICD9: 465.9, ICD10: J06.9 (primary diagnosis) - Discussed viral etiology and rationale for treatment - advised to start augmetin if no improvement after sudafed/flonase - Symptomatic treatment with prn analgesia - Supportive care with fluids and rest 2. Sinus pressure - ICD9: 478.19, ICD10: J34.89 - Will begin treatment with Augmentin 875 mg PO BID for 7 days - The patient should also use sudafed, flonase - Supportive care with plenty of fluids, rest, and analgesia prn. - Follow up in one week if symptoms persist or worsen. Diagnosis and treatment plan were discussed and questions were answered to the patient's satisfaction. Pt acknowledged understanding of concepts and follow up plan. Specific signs and symptoms that would indicate the need for higher level of care were discussed in detail warranting prompt ER evaluation. Fabienne Valentine APRN.MILITARY COMMUNICATIONS SPECIALIST documented in this encounter [facility] 05-11-2023 Miscellaneous Notes 05/12/23: sent email program update request. Member is out of office until 05/16/23- email scheduled to be delivered on . Enrolled in Weight Management Program Earned no discount for 2022 Last OV: 11/23/22-PCP MEDICATIONS PER RX DATABASE none Adherent with medication refills N/A Date Verified 05/11/2023 Is member submitting receipts for Reimbursement N/A Is member eligible for medication reimbursement No Is Employee Health Plan primary Yes (Did not provide 2022 final weight) (Last weight 352 lbs 12.8 oz on 11/21/22-PCP) 2023 Wt goal lbs BMI Points Diagnosis of Coronary Artery Disease No Last 3 Encounter BP Readings: Date: BP: 11/28/2022 110/70-[facility] 11/23/2022 136/88 11/21/2022 142/98 LDL Cholesterol (mg/dL) Date Value 07/20/2019 95 07/05/2018 84 09/28/2016 91 08/28/2015 88 12/10/2014 96 LDL Cholesterol, Nonfasting (mg/dL) Date Value 12/23/2020 98 documented in this encounter [facility] 03-10-2023 Miscellaneous Notes Addended by: FRANCY HICKEY on: 03/10/2023 04:33 PM Modules accepted: Orders Pt messaged -- requested to change to [facility] [place]. Script sent. documented in this encounter [facility] 02-08-2023 Miscellaneous Notes 02/08/23: emailed program update request Enrolled in Weight Management Program Earned no discount for 2022 Last OV: 11/23/22 PCP Health visit form needed: no MEDICATIONS PER RX DATABASE Ozempic Adherent with medication refills N/A Date Verified 02/08/2023 Is member submitting receipts for Reimbursement N/A Is member eligible for medication reimbursement No Is Employee Health Plan primary Yes 2022 Wt goal 310 lbs 4 BMI Points Diagnosis of Coronary Artery Disease No Last 3 Encounter BP Readings: Date: BP: 11/28/2022 110/70 11/23/2022 136/88 11/21/2022 142/98 LDL Cholesterol (mg/dL) Date Value 07/20/2019 95 07/05/2018 84 09/28/2016 91 08/28/2015 88 12/10/2014 96 LDL Cholesterol, Nonfasting (mg/dL) Date Value 12/23/2020 98 Diabetic Screening Hemoglobin A1C (%) Date Value 11/21/2022 5.2 10/28/2013 5.6 03/13/2013 5.5 Hemoglobin A1C (POCT) (%) Date Value 06/20/2022 5.3 Proteins, fruits, vegetables, avoiding candy and food high in sugar, popcorn, chips, and fruit snacks Walking couple times a week for 20-30 documented in this encounter [facility] 01-19-2023 Miscellaneous Notes Noble Sen, So I called [facility] about Ozempic and they re saying a prior auth has to be done before I can even use the savings card. Did you submit a prior auth? If not, can we try? Maybe they would at least cover some of it with my diagnosis of PCOS? Thanks, Yocasta documented in this encounter [facility] 01-09-2023 Miscellaneous Notes Phone call to patient and discussed recent FDA recommendations re: semaglutide and compounding pharmacies. Recommended to stop treatment as of this time. Pt voices understanding and reports no adverse effects as of this time. She would like ozempic sent to [facility]. Francy Hickey APRN.ORLY documented in this encounter [facility] 12-13-2022 Miscellaneous Notes 12/13/22: emailed program update request Enrolled in Weight Management Program Earned no discount for 2022 Last OV; 11/23/22 Health visit form needed: no MEDICATIONS PER RX DATABASE none Adherent with medication refills N/A Date Verified 12/13/2022 Is member submitting receipts for Reimbursement N/A Is member eligible for medication reimbursement No Is Employee Health Plan primary Yes 2022 Wt goal 310 lbs 4 BMI Points Diagnosis of Coronary Artery Disease No Last 3 Encounter BP Readings: Date: BP: 11/28/2022 110/70 11/23/2022 136/88 11/21/2022 142/98 LDL Cholesterol (mg/dL) Date Value 07/20/2019 95 07/05/2018 84 09/28/2016 91 08/28/2015 88 12/10/2014 96 LDL Cholesterol, Nonfasting (mg/dL) Date Value 12/23/2020 98 documented in this encounter [facility] 11-28-2022 Note HNO ID: [id number] Author: Italia Vazquez APRN.CNP Service: ? Author Type: Nurse Practitioner Type: Progress Notes Filed: 11/28/2022 12:05 PM Note Text: CC: Patient presents with: Conjunctivitis: L eye x this AM HPI: Yocasta Bains is a 32 year old female who presents to the office with complaint of eye irritation on the left since this morning. Symptoms are staying the same. Associated symptoms includes woke up with drainage and matted closed. Denies fever, ear pain, nausea, vomiting , and diarrhea. Treatments tried include nothing so far. with no relief of symptoms. Sick contacts: unknown. History of asthma, frequent episodes of bronchitis, chronic bronchitis, bronchiectasis or COPD: No Smoker: No Seasonal/environmental allergies: No The ROS is otherwise negative. The patient's pmh, medications, allergies, and past visits are reviewed. PHYSICAL EXAM: BP 110/70 Pulse 96 Temp 37.2 ?C (98.9 ?F) Resp 18 LMP 10/31/2016 (Exact Date) SpO2 98% General appearance: alert, cooperative, pleasant, in no acute distress Head: Normocephalic Eyes: EOM's intact, conjunctiva pink and moist on right and erythematic on left, no icterus, sclera white, non-injected on right and erythematic on left ASSESSMENT/PLAN: 1. [place] eye disease of left eye - ICD9: 372.03, ICD10: H10.022 - POLYMYXIN B SULFATE 10,000 UNIT-TRIMETHOPRIM 1 MG/ML EYE DROPS Prescription instructions reviewed with patient as applicable. Potential red flag symptoms discussed with the patient. Reviewed appropriate action plan to take if red flag symptoms occur. Patient agreeable to treatment plan. Italia Vazquez APRN.[facility] 11-24-2022 Note HNO ID: [id number] Author: Leeann Brody RDMS Service: ? Author Type: [employer] Shift Superintendent Type: Progress Notes Filed: 11/24/2022 3:36 PM Note Text: Radiology Service Progress Note PATIENT NAME: Yocasta Bains DATE OF SERVICE: November 24, 2022 TIME: 3:36 PM PATIENT IDENTITY VERIFICATION COMPLETED USING TWO (2) IDENTIFIERS: Name and Date of confirmed by patient verbally. FALL SCREENING: Has the patient had 2 falls in the last year or 1 fall with injury or currently using an Ambulatory Assistive Device (Walker, Cane, Wheelchair, Crutches, etc.)? No PATIENT GENDER DATA: Female. status: : No status: NO. PATIENT RELEVANT IMPLANT DATA REVIEWED: Not Applicable RADIOLOGY DEPARTMENT: Ultrasound PERIPHERAL IV DATA: Not applicable SIGNED BY: Leeann Brody RDMS RVT November 24, 2022 3:36 PM [facility] 11-24-2022 History of Presen t illness Narrative Radiology Service Progress Note PATIENT NAME: Yocasta Bains DATE OF SERVICE: November 24, 2022 TIME: 3:36 PM PATIENT IDENTITY VERIFICATION COMPLETED USING TWO (2) IDENTIFIERS: Name and Date of confirmed by patient verbally. FALL SCREENING: Has the patient had 2 falls in the last year or 1 fall with injury or currently using an Ambulatory Assistive Device (Walker, Cane, Wheelchair, Crutches, etc.)? No PATIENT GENDER DATA: Female. status: : No status: NO. PATIENT RELEVANT IMPLANT DATA REVIEWED: Not Applicable RADIOLOGY DEPARTMENT: Ultrasound PERIPHERAL IV DATA: Not applicable SIGNED BY: Leeann Brody RDMS RVT November 24, 2022 3:36 PM documented in this encounter [facility] 11-23-2022 Miscellaneous Notes Mychart sent to patient. Francy Hickey APRN.MILITARY COMMUNICATIONS SPECIALIST Images from the original note were not included. Results of D-dimer copied from [facility] Referrizer: documented in this encounter [facility] 11-23-2022 Note HNO ID: [id number] Author: Amee Baldwin RT(R) Service: Radiology Author Type: Technologist Type: Progress Notes Filed: 11/23/2022 12:05 PM Note Text: Radiology Service Progress Note PATIENT NAME: Yocasta Bains DATE OF SERVICE: November 23, 2022 TIME: 11:46 AM PATIENT IDENTITY VERIFICATION COMPLETED USING TWO (2) IDENTIFIERS: Name and Date of confirmed by patient verbally. FALL SCREENING: Has the patient had 2 falls in the last year or 1 fall with injury or currently using an Ambulatory Assistive Device (Walker, Cane, Wheelchair, Crutches, etc.)? No PATIENT GENDER DATA: Female. status: : No status: NO. PATIENT RELEVANT IMPLANT DATA REVIEWED: Yes RADIOLOGY DEPARTMENT: General X-ray: Exam(s) Completed: Chest X-Ray PERIPHERAL IV DATA: Not applicable SIGNED BY: RT Leni(R) November 23, 2022 11:46 AM [facility] 11-23-2022 Note HNO ID: [id number] Author: Francy Hickey APRN.MILITARY COMMUNICATIONS SPECIALIST Service: ? Author Type: Nurse Practitioner Type: Progress Notes Filed: 11/23/2022 5:34 PM Note Text: This is a 32 year old female who presents today with: No chief complaint on file. HISTORY OF PRESENT ILLNESS: Yocasta Bains is a 32 year old female. No chief complaint on file. Pt presents today with complaint of pain under the left breast/chest wall. Refers tender to touch. Constant in nature. + fatigue. Head feels foggy. Will feel like heart is racing. Refers that she shaved her legs this morning and felt very short of breath afterwards. Refers that she is getting pain in the upper mid-back and in the right shoulder. Intermittent. PAST MEDICAL HISTORY: PAST MEDICAL HISTORY Diagnosis Date Anemia Closed fracture of unspecified part of radius with ulna(813.83) 02/2001 LEFT Depression 12/19/2012 Essential hypertension, benign LGSIL on Pap smear of cervix Migraine with aura and without status migrainosus, not intractable 10/29/2015 Obesity, morbid (more than 100 lbs over ideal weight or BMI > 40) (HCC) 05/08/2012 Polycystic ovarian disease Pyelonephritis AGE 5 Snoring 05/08/2012 PAST SURGICAL HISTORY Procedure Laterality Date APPENDECTOMY 2000 GASTRIC BYPASS HX 09/2011 LAPAROSCOPIC CHOLECYSTECTOMY 12/29/03 MIDLINE INSERTION/CONSULT 09/26/2012 MIDLINE INSERTION/CONSULT 10/11/2012 ALLERGIES Lisinopril and Tape [Adhesive Tape (Rosins)] MEDICATIONS Current Outpatient Medications Medication Sig cefdinir (OMNICEF) 300 mg capsule Take 1 capsule by mouth twice daily for 10 days. metaxalone (SKELAXIN) 800 mg tablet Take 800 mg by mouth three times daily. FLUoxetine (PROZAC) 40 mg capsule Take 1 capsule by mouth once daily. cholecalciferol (VITAMIN D-3) 2,000 unit tablet Take 1 tablet by mouth once daily. esomeprazole (NEXIUM) 40 mg capsule Take 1 capsule by mouth once daily. SUMAtriptan (IMITREX) 50 mg tablet 1 tablet by mouth as needed for migraine. May repeat every 2 hrs as needed for migraine (max 4/day) levonorgestrel (MIRENA) 20 mcg/24 hr (5 years) IUD Inserted in office MULTIVIT-MINERALS/FERROUS FUM (MULTI VITAMIN ORAL) Take by mouth once daily. No current facility-administered medications for this visit. FAMILY HISTORY Problem Relation Age of Onset Hypertension Mother Hyperlipidemia Mother other (diverticulitis) Mother Hypertension Father Prostate Cancer Father Heart Attack Father Hyperlipidemia Father Diabetes Father Hypertension Maternal Grandmother Cataract Maternal Grandmother Heart Paternal Grandfather DE other (Other) Maternal Grandfather RENAL STONES No Known Problems Sister Diabetes Paternal Grandmother Blindness Paternal Grandmother Macular Degen Paternal Grandmother Social History Tobacco Use Smoking status: Never Smokeless tobacco: Never Substance Use Topics Alcohol use: Yes Comment: occassional wine, NOT WHILE Drug use: No EXAM: BP 136/88 Pulse 95 Resp 18 LMP 10/31/2016 (Exact Date) SpO2 98% PHYSICAL EXAM: General Appearance: Well appearing, alert, in no acute distress, well-hydrated, well nourished.. Skin: Skin color, texture, turgor normal, no suspicious rashes or lesions. Head: Normocephalic, no masses, lesions, tenderness or abnormalities. Eyes: Anicteric sclera. Extraocular movements are intact. . Ears: External ears normal, canals clear, Positive findings: R TM: air/fluid interface visualized, L TM: air/fluid interface visualized. Oropharynx: Lips, mucosa, and tongue normal, teeth and gums normal, oropharynx normal. Neck: Supple, no adenopathy Lungs: Lungs clear to auscultation. No wheezing, rhonchi, rales.. Heart: RRR without murmur, gallop, or rubs. No ectopy. Abdomen: Abdomen soft, non-tender. Bowel sounds normal. No masses, organomegaly. Pain to palpate under the left breast and left lateral rib cage. Neurologic: Gait normal. ASSESSMENT/PLAN: 1. Costochondritis - ICD9: 733.6, ICD10: M94.0 (primary diagnosis) Pain reproducible. Tylenol prn. 2. Palpitations - ICD9: 785.1, ICD10: R00.2 - ECG COMPLETE - SR without ectopy or ST changes. - RYLEE HILLIARD PANEL 3. SOB (shortness of breath) - ICD9: 786.05, ICD10: R06.02 Will get d.dimer and chest xray to r/o PE (suspicion is low based on oxygenation, pain reproducible, and not tachycardic) and pneumonia. - XR CHEST 2V FRONTAL/LAT - D-DIMER - CBC + DIFF - RYLEE HILLIARD PANEL 4. Fatigue, unspecified type - ICD9: 780.79, ICD10: R53.83 - URINALYSIS, WITH MICROSCOPIC - CBC + DIFF - RYLEE HILLIARD PANEL - URINE CULTURE 5. Viral upper respiratory tract infection - ICD9: 465.9, ICD10: J06.9 - RYLEE HILLIARD PANEL 6. Vitamin D deficiency - ICD9: 268.9, ICD10: E55.9 Start weekly replacement and recheck in 3 months. - VITAMIN D 25 HYDROXY - CHOLECALCIFEROL (VITAMIN D3) 1,250 MCG (50,000 UNIT) CAPSULE Discussed treatment plan and patient voices (more content not included)... [facility] 11-23-2022 History of Presen t illness Narrative This is a 32 year old female who presents today with: No chief complaint on file. HISTORY OF PRESENT ILLNESS: Yocasta Bains is a 32 year old female. No chief complaint on file. Pt presents today with complaint of pain under the left breast/chest wall. Refers tender to touch. Constant in nature. + fatigue. Head feels foggy. Will feel like heart is racing. Refers that she shaved her legs this morning and felt very short of breath afterwards. Refers that she is getting pain in the upper mid-back and in the right shoulder. Intermittent. PAST MEDICAL HISTORY: PAST MEDICAL HISTORY Diagnosis Date Anemia Closed fracture of unspecified part of radius with ulna(813.83) 02/2001 LEFT Depression 12/19/2012 Essential hypertension, benign LGSIL on Pap smear of cervix Migraine with aura and without status migrainosus, not intractable 10/29/2015 Obesity, morbid (more than 100 lbs over ideal weight or BMI > 40) (HCC) 05/08/2012 Polycystic ovarian disease Pyelonephritis AGE 5 Snoring 05/08/2012 PAST SURGICAL HISTORY Procedure Laterality Date APPENDECTOMY 2000 GASTRIC BYPASS HX 09/2011 LAPAROSCOPIC CHOLECYSTECTOMY 12/29/03 MIDLINE INSERTION/CONSULT 09/26/2012 MIDLINE INSERTION/CONSULT 10/11/2012 ALLERGIES Lisinopril and Tape [Adhesive Tape (Rosins)] MEDICATIONS Current Outpatient Medications Medication Sig cefdinir (OMNICEF) 300 mg capsule Take 1 capsule by mouth twice daily for 10 days. metaxalone (SKELAXIN) 800 mg tablet Take 800 mg by mouth three times daily. FLUoxetine (PROZAC) 40 mg capsule Take 1 capsule by mouth once daily. cholecalciferol (VITAMIN D-3) 2,000 unit tablet Take 1 tablet by mouth once daily. esomeprazole (NEXIUM) 40 mg capsule Take 1 capsule by mouth once daily. SUMAtriptan (IMITREX) 50 mg tablet 1 tablet by mouth as needed for migraine. May repeat every 2 hrs as needed for migraine (max 4/day) levonorgestrel (MIRENA) 20 mcg/24 hr (5 years) IUD Inserted in office MULTIVIT-MINERALS/FERROUS FUM (MULTI VITAMIN ORAL) Take by mouth once daily. No current facility-administered medications for this visit. FAMILY HISTORY Problem Relation Age of Onset Hypertension Mother Hyperlipidemia Mother other (diverticulitis) Mother Hypertension Father Prostate Cancer Father Heart Attack Father Hyperlipidemia Father Diabetes Father Hypertension Maternal Grandmother Cataract Maternal Grandmother Heart Paternal Grandfather DE other (Other) Maternal Grandfather RENAL STONES No Known Problems Sister Diabetes Paternal Grandmother Blindness Paternal Grandmother Macular Degen Paternal Grandmother Social History Tobacco Use Smoking status: Never Smokeless tobacco: Never Substance Use Topics Alcohol use: Yes Comment: occassional wine, NOT WHILE Drug use: No EXAM: BP 136/88 Pulse 95 Resp 18 LMP 10/31/2016 (Exact Date) SpO2 98% PHYSICAL EXAM: General Appearance: Well appearing, alert, in no acute distress, well-hydrated, well nourished.. Skin: Skin color, texture, turgor normal, no suspicious rashes or lesions. Head: Normocephalic, no masses, lesions, tenderness or abnormalities. Eyes: Anicteric sclera. Extraocular movements are intact. . Ears: External ears normal, canals clear, Positive findings: R TM: air/fluid interface visualized, L TM: air/fluid interface visualized. Oropharynx: Lips, mucosa, and tongue normal, teeth and gums normal, oropharynx normal. Neck: Supple, no adenopathy Lungs: Lungs clear to auscultation. No wheezing, rhonchi, rales.. Heart: RRR without murmur, gallop, or rubs. No ectopy. Abdomen: Abdomen soft, non-tender. Bowel sounds normal. No masses, organomegaly. Pain to palpate under the left breast and left lateral rib cage. Neurologic: Gait normal. ASSESSMENT/PLAN: 1. Costochondritis - ICD9: 733.6, ICD10: M94.0 (primary diagnosis) Pain reproducible. Tylenol prn. 2. Palpitations - ICD9: 785.1, ICD10: R00.2 - ECG COMPLETE - SR without ectopy or ST changes. - RYLEE HILLIARD PANEL 3. SOB (shortness of breath) - ICD9: 786.05, ICD10: R06.02 Will get d.dimer and chest xray to r/o PE (suspicion is low based on oxygenation, pain reproducible, and not tachycardic) and pneumonia. - XR CHEST 2V FRONTAL/LAT - D-DIMER - CBC + DIFF - RYLEE HILLIARD PANEL 4. Fatigue, unspecified type - ICD9: 780.79, ICD10: R53.83 - URINALYSIS, WITH MICROSCOPIC - CBC + DIFF - RYLEE HILLIARD PANEL - URINE CULTURE 5. Viral upper respiratory tract infection - ICD9: 465.9, ICD10: J06.9 - RYLEE HILLIARD PANEL 6. Vitamin D deficiency - ICD9: 268.9, ICD10: E55.9 Start weekly replacement and recheck in 3 months. - VITAMIN D 25 HYDROXY - CHOLECALCIFEROL (VITAMIN D3) 1,250 MCG (50,000 UNIT) CAPSULE Discussed treatment plan and patient voices understanding. Patient's questions answered appropriately. Medications and potential side effects were discussed and patient voices understanding. Return to the office as scheduled or as needed for worsening/no improvement. Francy Hickey APRN.ORLY documented in this encounter [facility] 11-21-2022 Note HNO ID: [id number] Author: Francy Hickey APRN.CNP Service: ? Author Type: Nurse Practitioner Type: Progress Notes Filed: 11/21/2022 4:04 PM Note Text: This is a 32 year old female who presents today with: Patient presents with: Discussion: Discuss weight loss medication HISTORY OF PRESENT ILLNESS: Yocasta Bains is a 32 year old female. Patient presents with: Discussion: Discuss weight loss medication Pt presents today to discuss weight loss medication. Refers that she has gained additional weight. Concerned about diabetes. She would really like to start ozempic. Her sister is doing really well with this medication. + fatigue. BP higher today, which is usually not a problem. She also has URI symptoms. Started about three days ago. Refers that it actually has been ongoing for some time. She will have symptoms for a few days, then start to get better, then get worse again and continues to wax and wane. Has a lump on the posterior left neck. Has been there a long time, but has noticed it is larger. Used to be the size of a pea and is now the size of a grape. PAST MEDICAL HISTORY: PAST MEDICAL HISTORY Diagnosis Date Anemia Closed fracture of unspecified part of radius with ulna(813.83) 02/2001 LEFT Depression 12/19/2012 Essential hypertension, benign LGSIL on Pap smear of cervix Migraine with aura and without status migrainosus, not intractable 10/29/2015 Obesity, morbid (more than 100 lbs over ideal weight or BMI > 40) (HCC) 05/08/2012 Polycystic ovarian disease Pyelonephritis AGE 5 Snoring 05/08/2012 PAST SURGICAL HISTORY Procedure Laterality Date APPENDECTOMY 2000 GASTRIC BYPASS HX 09/2011 LAPAROSCOPIC CHOLECYSTECTOMY 12/29/03 MIDLINE INSERTION/CONSULT 09/26/2012 MIDLINE INSERTION/CONSULT 10/11/2012 ALLERGIES Lisinopril and Tape [Adhesive Tape (Rosins)] MEDICATIONS Current Outpatient Medications Medication Sig FLUoxetine (PROZAC) 40 mg capsule Take 1 capsule by mouth once daily. cholecalciferol (VITAMIN D-3) 2,000 unit tablet Take 1 tablet by mouth once daily. esomeprazole (NEXIUM) 40 mg capsule Take 1 capsule by mouth once daily. SUMAtriptan (IMITREX) 50 mg tablet 1 tablet by mouth as needed for migraine. May repeat every 2 hrs as needed for migraine (max 4/day) levonorgestrel (MIRENA) 20 mcg/24 hr (5 years) IUD Inserted in office MULTIVIT-MINERALS/FERROUS FUM (MULTI VITAMIN ORAL) Take by mouth once daily. metaxalone (SKELAXIN) 800 mg tablet Take 800 mg by mouth three times daily. No current facility-administered medications for this visit. FAMILY HISTORY Problem Relation Age of Onset Hypertension Mother Hyperlipidemia Mother other (diverticulitis) Mother Hypertension Father Prostate Cancer Father Heart Attack Father Hyperlipidemia Father Diabetes Father Hypertension Maternal Grandmother Cataract Maternal Grandmother Heart Paternal Grandfather DE other (Other) Maternal Grandfather RENAL STONES No Known Problems Sister Diabetes Paternal Grandmother Blindness Paternal Grandmother Macular Degen Paternal Grandmother Social History Tobacco Use Smoking status: Never Smokeless tobacco: Never Substance Use Topics Alcohol use: Yes Comment: occassional wine, NOT WHILE Drug use: No EXAM: BP 142/98 Pulse 88 Resp 18 Ht 160.5 cm (5' 3.19 ) Wt (!) 160 kg (352 lb 12.8 oz) LMP 10/31/2016 (Exact Date) SpO2 97% BMI 62.12 kg/m? PHYSICAL EXAM: General Appearance: Well appearing, alert, in no acute distress, well-hydrated, well nourished.. Skin: Skin color, texture, turgor normal, no suspicious rashes or lesions. Head: Normocephalic, no masses, lesions, tenderness or abnormalities. + facial tenderness. Eyes: Anicteric sclera. Pupils are equally round and reactive to light. Extraocular movements are intact. . Ears: External ears normal, canals clear. TMs bulging. Oropharynx: Lips, mucosa, and tongue normal, teeth and gums normal, oropharynx normal. Neck: Supple, no adenopathy. Prominent non-mobile lump left posterior neck. Lungs: Lungs clear to auscultation. No wheezing, rhonchi, rales.. Heart: RRR without murmur, gallop, or rubs. No ectopy. Extremities: No deformities, edema, skin discoloration, clubbing or cyanosis. Good capillary refill. . Neurologic: Gait normal. ASSESSMENT/PLAN: 1. Symptoms of upper respiratory infection (URI) - ICD9: 786.09, ICD10: R09.89 (primary diagnosis) Will get covid swabbing. Has been waxing and waning for months. Will go ahead and start omnicef. - CAREGIVER COVID + FLU A/B, ROUTINE - CEFDINIR 300 MG CAPSULE 2. Localized swelling, mass and lump, neck - ICD9: 784.2, ICD10: R22.1 We will get ultrasound to eval for lymph node versus lipoma. - US HEAD/NECK SOFT TISSUE OTHER 3. Fatigue, unspecified type - ICD9: 780.79, ICD10: R53.83 - CBC + DIFF - COMP METABOLIC PANEL - TSH BLD - VITAMIN D 25 HYDROXY - FERRITIN BLD - IRON + TIB (more content not included)... [facility] 11-21-2022 Instructions Francy Hickey APRN.ORLY - 11/21/2022 10:46 AM EDT Get labs. Schedule neck ultrasound. Start omnicef. More to come tomorrow. documented in this encounter [facility] 11-21-2022 History of Presen t illness Narrative This is a 32 year old female who presents today with: Patient presents with: Discussion: Discuss weight loss medication HISTORY OF PRESENT ILLNESS: Yocasta Bains is a 32 year old female. Patient presents with: Discussion: Discuss weight loss medication Pt presents today to discuss weight loss medication. Refers that she has gained additional weight. Concerned about diabetes. She would really like to start ozempic. Her sister is doing really well with this medication. + fatigue. BP higher today, which is usually not a problem. She also has URI symptoms. Started about three days ago. Refers that it actually has been ongoing for some time. She will have symptoms for a few days, then start to get better, then get worse again and continues to wax and wane. Has a lump on the posterior left neck. Has been there a long time, but has noticed it is larger. Used to be the size of a pea and is now the size of a grape. PAST MEDICAL HISTORY: PAST MEDICAL HISTORY Diagnosis Date Anemia Closed fracture of unspecified part of radius with ulna(813.83) 02/2001 LEFT Depression 12/19/2012 Essential hypertension, benign LGSIL on Pap smear of cervix Migraine with aura and without status migrainosus, not intractable 10/29/2015 Obesity, morbid (more than 100 lbs over ideal weight or BMI > 40) (HCC) 05/08/2012 Polycystic ovarian disease Pyelonephritis AGE 5 Snoring 05/08/2012 PAST SURGICAL HISTORY Procedure Laterality Date APPENDECTOMY 2000 GASTRIC BYPASS HX 09/2011 LAPAROSCOPIC CHOLECYSTECTOMY 12/29/03 MIDLINE INSERTION/CONSULT 09/26/2012 MIDLINE INSERTION/CONSULT 10/11/2012 ALLERGIES Lisinopril and Tape [Adhesive Tape (Rosins)] MEDICATIONS Current Outpatient Medications Medication Sig FLUoxetine (PROZAC) 40 mg capsule Take 1 capsule by mouth once daily. cholecalciferol (VITAMIN D-3) 2,000 unit tablet Take 1 tablet by mouth once daily. esomeprazole (NEXIUM) 40 mg capsule Take 1 capsule by mouth once daily. SUMAtriptan (IMITREX) 50 mg tablet 1 tablet by mouth as needed for migraine. May repeat every 2 hrs as needed for migraine (max 4/day) levonorgestrel (MIRENA) 20 mcg/24 hr (5 years) IUD Inserted in office MULTIVIT-MINERALS/FERROUS FUM (MULTI VITAMIN ORAL) Take by mouth once daily. metaxalone (SKELAXIN) 800 mg tablet Take 800 mg by mouth three times daily. No current facility-administered medications for this visit. FAMILY HISTORY Problem Relation Age of Onset Hypertension Mother Hyperlipidemia Mother other (diverticulitis) Mother Hypertension Father Prostate Cancer Father Heart Attack Father Hyperlipidemia Father Diabetes Father Hypertension Maternal Grandmother Cataract Maternal Grandmother Heart Paternal Grandfather DE other (Other) Maternal Grandfather RENAL STONES No Known Problems Sister Diabetes Paternal Grandmother Blindness Paternal Grandmother Macular Degen Paternal Grandmother Social History Tobacco Use Smoking status: Never Smokeless tobacco: Never Substance Use Topics Alcohol use: Yes Comment: occassional wine, NOT WHILE Drug use: No EXAM: BP 142/98 Pulse 88 Resp 18 Ht 160.5 cm (5' 3.19 ) Wt (!) 160 kg (352 lb 12.8 oz) LMP 10/31/2016 (Exact Date) SpO2 97% BMI 62.12 kg/m PHYSICAL EXAM: General Appearance: Well appearing, alert, in no acute distress, well-hydrated, well nourished.. Skin: Skin color, texture, turgor normal, no suspicious rashes or lesions. Head: Normocephalic, no masses, lesions, tenderness or abnormalities. + facial tenderness. Eyes: Anicteric sclera. Pupils are equally round and reactive to light. Extraocular movements are intact. . Ears: External ears normal, canals clear. TMs bulging. Oropharynx: Lips, mucosa, and tongue normal, teeth and gums normal, oropharynx normal. Neck: Supple, no adenopathy. Prominent non-mobile lump left posterior neck. Lungs: Lungs clear to auscultation. No wheezing, rhonchi, rales.. Heart: RRR without murmur, gallop, or rubs. No ectopy. Extremities: No deformities, edema, skin discoloration, clubbing or cyanosis. Good capillary refill. . Neurologic: Gait normal. ASSESSMENT/PLAN: 1. Symptoms of upper respiratory infection (URI) - ICD9: 786.09, ICD10: R09.89 (primary diagnosis) Will get covid swabbing. Has been waxing and waning for months. Will go ahead and start omnicef. - CAREGIVER COVID + FLU A/B, ROUTINE - CEFDINIR 300 MG CAPSULE 2. Localized swelling, mass and lump, neck - ICD9: 784.2, ICD10: R22.1 We will get ultrasound to eval for lymph node versus lipoma. - US HEAD/NECK SOFT TISSUE OTHER 3. Fatigue, unspecified type - ICD9: 780.79, ICD10: R53.83 - CBC + DIFF - COMP METABOLIC PANEL - TSH BLD - VITAMIN D 25 HYDROXY - FERRITIN BLD - IRON + TIBC - VITAMIN B12 BLOOD 4. Elevated glucose - ICD9: 790.29, ICD10: R73.09 - HGB A1C 5. Acute recurrent sinusitis, unspecified location - ICD9: 461.9, ICD10: J01.91 - CEFDINIR 300 MG CAPSULE 6. Class 3 severe obesity due to excess calories with body mass index (BMI) of 60.0 to 69.9 in adult, unspecified whether serious comorbidity present (HCC) - ICD9: 278.01, V85.44, ICD10: E66.01, Z68.44 Weight increasing - Pharmacological intervention We will check labs. If normal, patient is interested in starting semaglutide. She is aware that she may need to pay out of pocket for the medication. Discussed treatment plan and patient voices understanding. Patient's questions answered appropriately. Medications and potential side effects were discussed and patient voices understanding. Return to the office as scheduled or as needed for worsening/no improvement. Francy Hickey APRN.ORLY The patient indicates understanding of these issues and agrees with the plan. This note was partially generated using [employer] voice recognition system. Note was reviewed for accuracy. There may be minor misspellings or grammar miscues with Dragon voice recognition. documented in this encounter [facility] 07-01-2022 Miscellaneous Notes 07/01/22: emailed program update request Enrolled in Weight Management Program Earned no discount for 2022 MEDICATIONS PER RX DATABASE none Adherent with medication refills N/A Date Verified 07/01/22 Is member submitting receipts for Reimbursement N/A Is member eligible for medication reimbursement No Is Employee Health Plan primary Yes 2022 Wt goal 310 lbs 4 BMI Points Diagnosis of Coronary Artery Disease No Last 3 Encounter BP Readings: Date: BP: 06/20/2022 126/84 05/27/2022 132/64 10/01/2021 112/72 LDL Cholesterol (mg/dL) Date Value 07/20/2019 95 07/05/2018 84 09/28/2016 91 08/28/2015 88 12/10/2014 96 LDL Cholesterol, Nonfasting (mg/dL) Date Value 12/23/2020 98 documented in this encounter [facility] 06-28-2022 Note HNO ID: [id number] Author: El Tilley RPh Service: ? Author Type: Pharmacist Type: Progress Notes Filed: 06/28/2022 5:51 PM Note Text: Refill Authorization Consent Yocasta Bains was encountered by text or mychart message to obtain consent for pharmacist managed refill authorization. Patient gives consent to the authorization of prescriptions by a pharmacist. El Tilley RPh 06/28/2022 [facility] 06-28-2022 History of Presen t illness Narrative Refill Authorization Consent Yocasta Bains was encountered by text or mychart message to obtain consent for pharmacist managed refill authorization. Patient gives consent to the authorization of prescriptions by a pharmacist. El Tilley RPh 06/28/2022 documented in this encounter [facility] 06-20-2022 Note HNO ID: [id number] Author: Francy Hickey APRN.MILITARY COMMUNICATIONS SPECIALIST Service: ? Author Type: Nurse Practitioner Type: Progress Notes Filed: 06/20/2022 7:35 PM Note Text: This is a 31 year old female who presents today with: Patient presents with: Discussion: Weight loss medication/ possible R ear infection- started with pain last evening HISTORY OF PRESENT ILLNESS: Yocasta Bains is a 31 year old female. Patient presents with: Discussion: Weight loss medication/ possible R ear infection- started with pain last evening Pt thinks may have a right ear infection. Low grade fever. Took tylenol. Started hurting last night. Has had a cold for the last couple of weeks. Hearing okay out of the ear. Interested in weight loss medication. She has been working on eating more healthy. Admits that exercise routine could be better. She has taken adipex in the past, which has helped, but unfortunately can only take for three months. Interested in longer treatment periods. She is interested in possible semaglutide (or similar). PAST MEDICAL HISTORY: PAST MEDICAL HISTORY Diagnosis Date Anemia Closed fracture of unspecified part of radius with ulna(813.83) 02/2001 LEFT Depression 12/19/2012 Essential hypertension, benign LGSIL on Pap smear of cervix Migraine with aura and without status migrainosus, not intractable 10/29/2015 Obesity, morbid (more than 100 lbs over ideal weight or BMI > 40) (HCC) 05/08/2012 Polycystic ovarian disease Pyelonephritis AGE 5 Snoring 05/08/2012 PAST SURGICAL HISTORY Procedure Laterality Date APPENDECTOMY 2000 GASTRIC BYPASS HX 09/2011 LAPAROSCOPIC CHOLECYSTECTOMY 12/29/03 MIDLINE INSERTION/CONSULT 09/26/2012 MIDLINE INSERTION/CONSULT 10/11/2012 ALLERGIES Lisinopril and Tape [Adhesive Tape (Rosins)] MEDICATIONS Current Outpatient Medications Medication Sig metaxalone (SKELAXIN) 800 mg tablet Take 800 mg by mouth three times daily. naproxen (NAPROSYN) 500 mg tablet Take 1 tablet by mouth twice daily as needed (for pain/inflammation). Take with food. FLUoxetine (PROZAC) 40 mg capsule Take 1 capsule by mouth once daily. cholecalciferol (VITAMIN D-3) 2,000 unit tablet Take 1 tablet by mouth once daily. esomeprazole (NEXIUM) 40 mg capsule Take 1 capsule by mouth once daily. SUMAtriptan (IMITREX) 50 mg tablet 1 tablet by mouth as needed for migraine. May repeat every 2 hrs as needed for migraine (max 4/day) levonorgestrel (MIRENA) 20 mcg/24 hr (5 years) IUD Inserted in office MULTIVIT-MINERALS/FERROUS FUM (MULTI VITAMIN ORAL) Take by mouth once daily. No current facility-administered medications for this visit. FAMILY HISTORY Problem Relation Age of Onset Hypertension Mother Hyperlipidemia Mother other (diverticulitis) Mother Hypertension Father Prostate Cancer Father Heart Attack Father Hyperlipidemia Father Diabetes Father Hypertension Maternal Grandmother Cataract Maternal Grandmother Heart Paternal Grandfather DE other (Other) Maternal Grandfather RENAL STONES No Known Problems Sister Diabetes Paternal Grandmother Blindness Paternal Grandmother Macular Degen Paternal Grandmother Social History Tobacco Use Smoking status: Never Smokeless tobacco: Never Substance Use Topics Alcohol use: Yes Comment: occassional wine, NOT WHILE Drug use: No EXAM: BP 126/84 Pulse 93 Temp 37.3 ?C (99.2 ?F) Resp 18 Wt (!) 154.2 kg (340 lb) LMP 10/31/2016 (Exact Date) SpO2 99% BMI 60.23 kg/m? PHYSICAL EXAM: General Appearance: Well appearing, alert, in no acute distress, well-hydrated, well nourished.. Skin: Skin color, texture, turgor normal, no suspicious rashes or lesions. Head: Normocephalic, no masses, lesions, tenderness or abnormalities. Eyes: Anicteric sclera. Extraocular movements are intact. . Ears: Positive findings: R TM: erythematous and dull, L TM: normal. Oropharynx: Lips, mucosa, and tongue normal, teeth and gums normal, oropharynx normal. Neck: Supple, no adenopathy Lungs: Lungs clear to auscultation. No wheezing, rhonchi, rales.. Heart: RRR without murmur, gallop, or rubs. No ectopy. Extremities: No deformities, edema, skin discoloration, clubbing or cyanosis. Good capillary refill. . Neurologic: Gait normal. ASSESSMENT/PLAN: 1. Acute otitis media, right - ICD9: 382.9, ICD10: H66.91 (primary diagnosis) - Will begin treatment with Augmentin 875 mg PO BID for 10 days - The patient should also be given OTC decongestants prn for the first 5-7 days of treatment. - Supportive care with plenty of fluids, rest, and analgesia prn. - AMOXICILLIN 875 MG-POTASSIUM CLAVULANATE 125 MG TABLET 2. Elevated glucose - ICD9: 790.29, ICD10: R73.09 R/o diabetes/prediabetes. - HEMOGLOBIN A1C (POC) 3. Class 3 severe obesity due to excess calories without serious comorbidity with body mass index (BMI) of 50.0 to 59.9 in adult (HCC) - ICD9: 278.01, V85.43, ICD10: E66.01, Z68.43 Will (more content not included)... [facility] 06-20-2022 Instructions Francy Hickey APRN.CNP - 06/20/2022 10:11 AM EST Start the augmentin twice daily X 10 days. Start the ozempic if covered. Let me know if not. Recheck in 1 month. documented in this encounter [facility] 06-20-2022 History of Presen t illness Narrative This is a 31 year old female who presents today with: Patient presents with: Discussion: Weight loss medication/ possible R ear infection- started with pain last evening HISTORY OF PRESENT ILLNESS: Yocasta Bains is a 31 year old female. Patient presents with: Discussion: Weight loss medication/ possible R ear infection- started with pain last evening Pt thinks may have a right ear infection. Low grade fever. Took tylenol. Started hurting last night. Has had a cold for the last couple of weeks. Hearing okay out of the ear. Interested in weight loss medication. She has been working on eating more healthy. Admits that exercise routine could be better. She has taken adipex in the past, which has helped, but unfortunately can only take for three months. Interested in longer treatment periods. She is interested in possible semaglutide (or similar). PAST MEDICAL HISTORY: PAST MEDICAL HISTORY Diagnosis Date Anemia Closed fracture of unspecified part of radius with ulna(813.83) 02/2001 LEFT Depression 12/19/2012 Essential hypertension, benign LGSIL on Pap smear of cervix Migraine with aura and without status migrainosus, not intractable 10/29/2015 Obesity, morbid (more than 100 lbs over ideal weight or BMI > 40) (HCC) 05/08/2012 Polycystic ovarian disease Pyelonephritis AGE 5 Snoring 05/08/2012 PAST SURGICAL HISTORY Procedure Laterality Date APPENDECTOMY 1999 GASTRIC BYPASS HX 09/2011 LAPAROSCOPIC CHOLECYSTECTOMY 12/29/03 MIDLINE INSERTION/CONSULT 09/26/2012 MIDLINE INSERTION/CONSULT 10/11/2012 ALLERGIES Lisinopril and Tape [Adhesive Tape (Rosins)] MEDICATIONS Current Outpatient Medications Medication Sig metaxalone (SKELAXIN) 800 mg tablet Take 800 mg by mouth three times daily. naproxen (NAPROSYN) 500 mg tablet Take 1 tablet by mouth twice daily as needed (for pain/inflammation). Take with food. FLUoxetine (PROZAC) 40 mg capsule Take 1 capsule by mouth once daily. cholecalciferol (VITAMIN D-3) 2,000 unit tablet Take 1 tablet by mouth once daily. esomeprazole (NEXIUM) 40 mg capsule Take 1 capsule by mouth once daily. SUMAtriptan (IMITREX) 50 mg tablet 1 tablet by mouth as needed for migraine. May repeat every 2 hrs as needed for migraine (max 4/day) levonorgestrel (MIRENA) 20 mcg/24 hr (5 years) IUD Inserted in office MULTIVIT-MINERALS/FERROUS FUM (MULTI VITAMIN ORAL) Take by mouth once daily. No current facility-administered medications for this visit. FAMILY HISTORY Problem Relation Age of Onset Hypertension Mother Hyperlipidemia Mother other (diverticulitis) Mother Hypertension Father Prostate Cancer Father Heart Attack Father Hyperlipidemia Father Diabetes Father Hypertension Maternal Grandmother Cataract Maternal Grandmother Heart Paternal Grandfather DE other (Other) Maternal Grandfather RENAL STONES No Known Problems Sister Diabetes Paternal Grandmother Blindness Paternal Grandmother Macular Degen Paternal Grandmother Social History Tobacco Use Smoking status: Never Smokeless tobacco: Never Substance Use Topics Alcohol use: Yes Comment: occassional wine, NOT WHILE Drug use: No EXAM: BP 126/84 Pulse 93 Temp 37.3 C (99.2 F) Resp 18 Wt (!) 154.2 kg (340 lb) LMP 10/31/2016 (Exact Date) SpO2 99% BMI 60.23 kg/m PHYSICAL EXAM: General Appearance: Well appearing, alert, in no acute distress, well-hydrated, well nourished.. Skin: Skin color, texture, turgor normal, no suspicious rashes or lesions. Head: Normocephalic, no masses, lesions, tenderness or abnormalities. Eyes: Anicteric sclera. Extraocular movements are intact. . Ears: Positive findings: R TM: erythematous and dull, L TM: normal. Oropharynx: Lips, mucosa, and tongue normal, teeth and gums normal, oropharynx normal. Neck: Supple, no adenopathy Lungs: Lungs clear to auscultation. No wheezing, rhonchi, rales.. Heart: RRR without murmur, gallop, or rubs. No ectopy. Extremities: No deformities, edema, skin discoloration, clubbing or cyanosis. Good capillary refill. . Neurologic: Gait normal. ASSESSMENT/PLAN: 1. Acute otitis media, right - ICD9: 382.9, ICD10: H66.91 (primary diagnosis) - Will begin treatment with Augmentin 875 mg PO BID for 10 days - The patient should also be given OTC decongestants prn for the first 5-7 days of treatment. - Supportive care with plenty of fluids, rest, and analgesia prn. - AMOXICILLIN 875 MG-POTASSIUM CLAVULANATE 125 MG TABLET 2. Elevated glucose - ICD9: 790.29, ICD10: R73.09 R/o diabetes/prediabetes. - HEMOGLOBIN A1C (POC) 3. Class 3 severe obesity due to excess calories without serious comorbidity with body mass index (BMI) of 50.0 to 59.9 in adult (HCC) - ICD9: 278.01, V85.43, ICD10: E66.01, Z68.43 [facility], especially considering patient has comorbidities. If not approved, may consider another trial of adipex. She has taken in the past. She is aware of the requirements for the medication. Weight increasing - Pharmacological intervention - SEMAGLUTIDE 0.25 MG OR 0.5 MG (2 MG/1.5 ML) SUBCUTANEOUS PEN INJECTOR 4. History of high blood pressure - ICD9: V12.59, ICD10: Z86.79 - SEMAGLUTIDE 0.25 MG OR 0.5 MG (2 MG/1.5 ML) SUBCUTANEOUS PEN INJECTOR Discussed treatment plan and patient voices understanding. Patient's questions answered appropriately. Medications and potential side effects were discussed and patient voices understanding. Return to the office as scheduled or as needed for worsening/no improvement. Francy Hickey APRN.MILITARY COMMUNICATIONS SPECIALIST This note was partially generated using [employer] voice recognition system. Note was reviewed for accuracy. There may be minor misspellings or grammar miscues with [employer] voice recognition. documented in this encounter [facility] 05-27-2022 History of Presen t illness Narrative Chief Complaint Patient presents with: Pain: Pt just stretched in bed instant pain started yesterday. HPI Yocasta Bains is a 31 year old female who presents here today for Above Complaints.. Yocasta is an established patient of Francy Hickey APRN. Yocasta is a new patient to me today. Concerns today.. [facility] ER follow-up-- [facility] ER on 05/25/22 due to back pain. Dx with myofascial strain. Given Valium PO x 1 dose, Toradol IM injection, and muscle relaxer, Skelaxin. No imaging done. Today.. Reports pain subsided slightly after ER visit but is now back just as bad as before. Concerned for slipped disc. Has had back strains before that normally muscle relaxants can relieve but this is different. Full ROM with discomfort. New symptoms starting today with intermittent numbness/tingling down R arm. No other concerns or complaints. Past medical history, appointments, medications, allergies reviewed. Previous Medical History PAST MEDICAL HISTORY Diagnosis Date Anemia Closed fracture of unspecified part of radius with ulna(813.83) 02/2001 LEFT Depression 12/19/2012 Essential hypertension, benign LGSIL on Pap smear of cervix Migraine with aura and without status migrainosus, not intractable 10/29/2015 Obesity, morbid (more than 100 lbs over ideal weight or BMI > 40) ([facility]) 05/08/2012 Polycystic ovarian disease Pyelonephritis AGE 5 Snoring 05/08/2012 Previous Surgical History PAST SURGICAL HISTORY Procedure Laterality Date APPENDECTOMY 2000 GASTRIC BYPASS HX 09/2011 LAPAROSCOPIC CHOLECYSTECTOMY 12/29/03 MIDLINE INSERTION/CONSULT 09/26/2012 MIDLINE INSERTION/CONSULT 10/11/2012 Family History FAMILY HISTORY Problem Relation Age of Onset Hypertension Mother Hyperlipidemia Mother other (diverticulitis) Mother Hypertension Father Prostate Cancer Father Heart Attack Father Hyperlipidemia Father Diabetes Father Hypertension Maternal Grandmother Cataract Maternal Grandmother Heart Paternal Grandfather DE other (Other) Maternal Grandfather RENAL STONES No Known Problems Sister Diabetes Paternal Grandmother Blindness Paternal Grandmother Macular Degen Paternal Grandmother Patient Allergies ALLERGIES Allergen Reactions Lisinopril GI Upset Tape [Adhesive Tape* Rash, Intolerance Current Medications Current Outpatient Medications on File Prior to Visit Medication Sig FLUoxetine (PROZAC) 40 mg capsule Take 1 capsule by mouth once daily. cholecalciferol (VITAMIN D-3) 2,000 unit tablet Take 1 tablet by mouth once daily. esomeprazole (NEXIUM) 40 mg capsule Take 1 capsule by mouth once daily. SUMAtriptan (IMITREX) 50 mg tablet 1 tablet by mouth as needed for migraine. May repeat every 2 hrs as needed for migraine (max 4/day) levonorgestrel (MIRENA) 20 mcg/24 hr (5 years) IUD Inserted in office MULTIVIT-MINERALS/FERROUS FUM (MULTI VITAMIN ORAL) Take by mouth once daily. No current facility-administered medications on file prior to visit. Social History Social History Tobacco Use Smoking status: Never Smokeless tobacco: Never Substance Use Topics Alcohol use: Yes Comment: occassional wine, NOT WHILE Drug use: No REVIEW OF SYSTEMS: as above Reviewed relevant PMHx, PSHx, Social Hx, current medications and allergies. Review of Symptoms REVIEW OF SYSTEMS See HPI. All other systems are negative. EXAM: BP 132/64 (BP Site: Left Arm, BP Position: Sitting, BP Cuff Size: Large Adult) Pulse 64 Resp 18 LMP 10/31/2016 (Exact Date) General Appearance: Well appearing, alert, in no acute distress, well-hydrated, well nourished.. Skin: Skin color, texture, turgor normal, no suspicious rashes or lesions. Head: Normocephalic, no masses, lesions, tenderness or abnormalities. Back:no pain to palpation of vertebrae, good flexion and extension, good range of motion, no muscle tenderness, reflexes are 2+ and symmetric, motor and sensory appear to be normal, negative SLR test, no evidence of scoliosis Lungs: Lungs clear to auscultation. No wheezing, rhonchi, rales.. Heart: RRR without murmur, gallop, or rubs. No ectopy. Extremities: No deformities, edema, skin discoloration, clubbing or cyanosis. Good capillary refill. . Musculoskeletal: No joint swelling, deformity, or tenderness. Peripheral Pulses: Normal. Health Maintenance List HEPATITIS C SCREENING Never done HEPATITIS B(3 of 3 - 3-dose series) due on 06/04/2008 HPV TESTING Never done PAP TESTING due on 03/04/2024 DTAP,TDAP,TD(8 - Td or Tdap) due on 03/16/2028 INFLUENZA Completed HIV SCREENING Completed COVID-19 VACCINE Completed ASSESSMENT/PLAN: 1. Acute midline low back pain without sciatica - ICD9: 724.2, ICD10: M54.50 X-ray lumbar and throacic back. Naproxen BID as needed -- no motrin/ibuprofen with this. Start prednisone taper x 9 days. Continue skelaxin as prescribed by ER. Discussed PT as next option if no improvement. - METAXALONE 800 MG TABLET - NAPROXEN 500 MG TABLET - XR THORACIC GENERAL 3V AP/LAT/SWIMMERS - XR LUMBAR GENERAL 3V AP/LAT/L5-S1 - PREDNISONE 10 MG TABLET RTO as needed if symptoms worsen or do not improve. Prescription instructions reviewed with patient as applicable. Potential red flag symptoms discussed with the patient. Reviewed appropriate action plan to take if red flag symptoms occur. Patient agreeable to treatment plan. Filomena Salazar APRN.ORLY [id number] [place] [address] documented in this encounter [facility] 05-09-2022 Miscellaneous Notes approve:P weigh in location /documentation from 05/06/22 visit in chart documented in this encounter [facility] 05-06-2022 History of Presen t illness Narrative Patient presents for [facility] weight check. Denies any problems at this time. Liseth Cuevas LPN documented in this encounter [facility] 05-06-2022 Miscellaneous Notes Member enrolled in Weight Management program(s). Member able to achieve final weigh in [facility] which she reports she also have covid and flu vaccine. Documented in chart as abstract encounter not a nurse visit . Member did not meet weight goal. Program exception requested for approved weigh in location /documentation from 05/06/22 visit in chart. Enrolled in weight Program Earned no discount for 2021 MEDICATIONS PER RX DATABASE none Adherent with medication refills N/A Date Verified 03/24/22 Is member submitting receipts for Reimbursement NO Is Employee Health Plan primary Yes 2021 Wt goal 297 lbs 4 BMI Points Final weight 333 lbs 05/06/22- nurse visit- this was not placed as a nurse visit, member states she had a covid and flu shot during a nurse visit. 2022 weight goal: BMI points: Diagnosis of Coronary Artery Disease No Last 4 Encounter BP Readings: Date: BP: 10/01/2021 112/72 06/21/2021 126/80 02/15/2021 114/80 01/11/2021 130/96 LDL Cholesterol (mg/dL) Date Value 07/20/2019 95 07/05/2018 84 09/28/2016 91 08/28/2015 88 12/10/2014 96 LDL Cholesterol, Nonfasting (mg/dL) Date Value 12/23/2020 98 documented in this encounter [facility] 03-24-2022 Miscellaneous Notes Enrolled in weight Program Earned no discount for 2021 MEDICATIONS PER RX DATABASE none Adherent with medication refills N/A Date Verified 03/24/22 Is member submitting receipts for Reimbursement NO Is Employee Health Plan primary Yes 2021 Wt goal 297 lbs 4 BMI Points Diagnosis of Coronary Artery Disease No Last 3 Encounter BP Readings: Date: BP: 10/01/2021 112/72 06/21/2021 126/80 02/15/2021 114/80 LDL Cholesterol (mg/dL) Date Value 07/20/2019 95 07/05/2018 84 09/28/2016 91 08/28/2015 88 12/10/2014 96 LDL Cholesterol, Nonfasting (mg/dL) Date Value 12/23/2020 98 documented in this encounter [facility] 03-09-2022 Miscellaneous Notes D/w mom today in preop Would like psychiatry consult due to stressors Tracy Bradley MD documented in this encounter [facility] 01-16-2022 Instructions Rebecca Connolly APRN.MILITARY COMMUNICATIONS SPECIALIST - 01/16/2022 10:27 AM EDT Images from the original note were not included. Adult Sinusitis Patient Education What is Sinusitis? Sinusitis [[id number]] is inflammation of the sinuses or swelling of the lining of the sinus cavity or nose. During an infection the sinuses become blocked with fluid causing swelling of the lining of the sinuses. Symptoms: (viral and bacterial infections) Stuffy nose Runny nose Postnasal drip Fever Toothache Headache Tiredness Cough Sore throat Face and head pressure and or pain Common causes: 98% of sinus infections are viral caused by viruses. Risk Factors of Sinusitis Include: Allergies, air pollution, indoor humidity and outdoor temperature changes, andstructural changes in the nose may contribute to sinus pain, pressure and congestion. When to get help? Temperature greater than 100.4 F Symptoms lasting more than 10 days or worsening symptoms greater than 7-10 days. If you do not improve or worsen after a course of antibiotics, you should be re-examined. Diagnosis and Treatment: Your healthcare provider will ask a number of questions about your symptoms and how long they have occurred. If symptoms of sinusitis persist greater than 10 days, it is possible you have a bacterial sinus infection and an antibiotic is prescribed. If it is viral, antibiotics will not help. You may be instructed to take [id number] medications for symptoms. including fever reducers acetaminophen or ibuprofen, nasal saline spray, cough and cold preparations and decongestants as prescribed by the physician, nurse practitioner or physician printing assistant. Self-Care and Prevention: Rest Fluids for hydration Good hand washing Humidifier Avoid smoking and exposure to second hand smoke Avoid sick contacts documented in this encounter [facility] 01-16-2022 History of Presen t illness Narrative Telemedicine Visit - Distance Health Virtual Visit Note Patient seen on [employer] Online platform. Location of patient: [place] History of Present Illness Yocasta Bains is a 31 year old year old female who presents for the past 2 weeks with symptoms that are:gradually worsening. Reports she has taken two COVID antigen tests this past week - both negative. Symptoms include: Positive for Chills/Sweats, Cough, Nasal congestion, PND, Rhinorrhea, Face pain/pressure, Headache, Teeth pain , Sore throat and Fatigue, Negative for Fever, Hemoptysis, SOB, [place], Wheezing, Otalgia, Nausea, Emesis and Diarrhea Oral intake: Adequate Tobacco use: No Second hand smoke exposure: No Recent exposure to strep:No Sick contacts: None Recent travel: None OTC meds/remedies that patient has tried: Mucinex-D, Tylenol PAST MEDICAL HISTORY Diagnosis Date Anemia Closed fracture of unspecified part of radius with ulna(813.83) 02/2001 LEFT Depression 12/19/2012 Essential hypertension, benign LGSIL on Pap smear of cervix Migraine with aura and without status migrainosus, not intractable 10/29/2015 Obesity, morbid (more than 100 lbs over ideal weight or BMI > 40) (HCC) 05/08/2012 Polycystic ovarian disease Pyelonephritis AGE 5 Snoring 05/08/2012 PAST SURGICAL HISTORY Procedure Laterality Date APPENDECTOMY 2000 GASTRIC BYPASS HX 09/2011 LAPAROSCOPIC CHOLECYSTECTOMY 12/29/03 MIDLINE INSERTION/CONSULT 09/26/2012 MIDLINE INSERTION/CONSULT 10/11/2012 FAMILY HISTORY Problem Relation Age of Onset Hypertension Mother Hyperlipidemia Mother other (diverticulitis) Mother Hypertension Father Prostate Cancer Father Heart Attack Father Hyperlipidemia Father Diabetes Father Hypertension Maternal Grandmother Cataract Maternal Grandmother Heart Paternal Grandfather DE other (Other) Maternal Grandfather RENAL STONES No Known Problems Sister Diabetes Paternal Grandmother Blindness Paternal Grandmother Macular Degen Paternal Grandmother Social History Tobacco Use Smoking status: Never Smoker Smokeless tobacco: Never Used Substance Use Topics Alcohol use: Yes Comment: occassional wine, NOT WHILE Drug use: No Current Outpatient Medications Medication Sig FLUoxetine HCl (PROZAC) 40 mg capsule Take 1 capsule by mouth once daily. cholecalciferol (VITAMIN D-3) 2,000 unit tablet Take 1 tablet by mouth once daily. esomeprazole (NEXIUM) 40 mg capsule Take 1 capsule by mouth once daily. SUMAtriptan (IMITREX) 50 mg tablet 1 tablet by mouth as needed for migraine. May repeat every 2 hrs as needed for migraine (max 4/day) levonorgestrel (MIRENA) 20 mcg/24 hr (5 years) IUD Inserted in office MULTIVIT-MINERALS/FERROUS FUM (MULTI VITAMIN ORAL) Take by mouth once daily. No current facility-administered medications for this visit. ALLERGIES Allergen Reactions Lisinopril GI Upset Tape [Adhesive Tape* Rash, Intolerance Video Exam (Examination performed via Video enabled technology) General appearance: Alert, oriented, pleasant, in NAD :Yes Ill appearing :No Lethargic appearing :No Eyes: Sclera clear :Yes Conjunctiva without erythema :Yes Ears: Tragus / outer ear tenderness by self palpation :No Oropharynx: mild erythema and +PND Frontal sinus tenderness by self palpation;Yes Maxillary sinus tenderness by self palpation :Yes Tender cervical adenopathy by self palpation :Yes Respiratory distress :No Coughing noted :Yes - one cough Audible wheezing noted :No ASSESSMENT/PLAN: 1. Acute non-recurrent pansinusitis - ICD9: 461.8, ICD10: J01.40 - AMOXICILLIN 875 MG-POTASSIUM CLAVULANATE 125 MG TABLET - Will begin treatment with as per antibiotic as written, see orders - Use a cool mist humidifier while sleeping/laying down - Steam showers to help with cough and congestion (steam up bathroom and sit in there for 15-20 minutes at a time) - Saline nose spray - Push fluids - Drink warm water/tea with honey - Tylenol/ibuprofen PRN pain, fever - Cover cough and wash hands frequently to prevent the spread of germs - Mucinex (generic is fine) 1200 mg twice daily to help with cough and to thin out mucus - http://www.choosingwisely.org/pa reent-resources/antibiotics/. This link shares information about when antibiotics may help and when they may not. - Red flags discussed for need for in person care - All questions answered Rebecca Connolly APRN.CNP If you let us know who your primary care provider is, we will send them a notification of today s visit through our electronic medical records system. Since not all providers have access to our notifications, we strongly encourage you to share the following record of today s visit with your primary care provider at your next visit. This will help in providing you the best care. If you do not have an established Primary Care physician and would like to continue care with a [facility] Virtual Primary Care physician, please ask your provider to place a Establish Primary Care order. Use [employer] to manage your care, wherever you are, 27/02, on your mobile device or computer. [employer] connects you to [employer] so you can access all your health information in one place and also schedule and request virtual appointments with primary care providers. documented in this encounter [facility] 11-15-2021 Miscellaneous Notes Enrolled in Weight Management programs Did not earn discount for 2021 WEIGHT GOAL 297 lbs 4 BMI Points Last 3 Encounter BP Readings: Date: BP: 10/01/2021 112/72 06/21/2021 126/80 02/15/2021 114/80 Last 3 LDL readings: LDL Cholesterol (mg/dL) Date Value 07/20/2019 95 07/05/2018 84 09/28/2016 91 LDL Cholesterol, Nonfasting (mg/dL) Date Value 12/23/2020 98 Hemoglobin A1C (%) Date Value 10/28/2013 5.6 03/13/2013 5.5 MEDICATIONS PER RX DATABASE none for Weight loss Adherent with medication refills N/A Verified 11/15/2021 Submitting receipts for reimbursement N/A Employee Health Plan primary YES documented in this encounter [facility] documented as of this encounter (statuses as of 11/15/2021) [facility]05-[facility] History of Past illness Narrative* Problem Noted Date Resolved Date Counseling and coordination of care 12/24/2014 03/04/2015 depression 07/08/2014 05/02/2018 Threatened labor 05/14/2014 015 Overview: May 14, 2014 given BMZ 1-2 cm dilated no cervical change. Shanell Zaidi MD May 16, 2014 Had decel when on L&D for TPTL last week, occas. deceleration. Had NST this week, reactive. BPP and growth US today, normal growth and fluid. Kick counts and f/u in 1-2 weeks. Ileana Vann MD SUPRV HIGH-RISK PREG NOS [V23.9] 03/03/2014 02/20/2015 Overview: Boy on us- Piyush Anemia 11/13/2013 02/20/2015 History of gastric bypass 10/28/20132015 Overview: 10/30/2013Patient has a history of gastric bypass surgery September 2012. She has a followup appointment December 05, 2013 with the surgeon and seaming inspector. She has several lab results ordered by the surgeon, Dr. Zazueta that she plans on doing today. 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 Shanell Zaidi MD May 16, 2014 Had decel when on L&D for TPTL last week, occas. deceleration. Had NST this week, reactive. BPP and growth US today, normal growth and fluid. Kick counts and f/u in 1-2 weeks. lIeana Vann MD SUPRV HIGH-RISK PREG NOS [V23.9] 03/03/2014 02/20/2015 Overview: Boy on us- Piyush Anemia 11/13/2013 02/20/2015 History of gastric bypass 10/28/20132015 Overview: 10/30/2013Patient has a history of gastric bypass surgery September 2012. She has a followup appointment December 05, 2013 with the surgeon and seaming inspector. She has several lab results ordered by the surgeon, Dr. Zazueta that she plans on doing today. 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 Shanell Zaidi MD May 16, 2014 Had decel when on L&D for TPTL last week, occas. deceleration. Had NST this week, reactive. BPP and growth US today, normal growth and fluid. Kick counts and f/u in 1-2 weeks. Ileana Vann MD SUPRV HIGH-RISK PREG NOS [V23.9] 03/03/2014 02/20/2015 Overview: Boy on us- Piyush Anemia 11/13/2013 02/20/2015 History of gastric bypass 10/28/20132015 Overview: 10/30/2013Patient has a history of gastric bypass surgery September 2012. She has a followup appointment December 05, 2013 with the surgeon and seaming inspector. She has several lab results ordered by the surgeon, Dr. Zazueta that she plans on doing today. 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 Shanell Zaidi MD May 16, 2014 Had decel when on L&D for TPTL last week, occas. deceleration. Had NST this week, reactive. BPP and growth US today, normal growth and fluid. Kick counts and f/u in 1-2 weeks. Ileana Vann MD SUPRV HIGH-RISK PREG NOS [V23.9] 03/03/2014 02/20/2015 Overview: Boy on us- Piyush Anemia 11/13/2013 02/20/2015 History of gastric bypass 10/28/20132015 Overview: 10/30/2013Patient has a history of gastric bypass surgery September 2012. She has a followup appointment December 05, 2013 with the surgeon and seaming inspector. She has several lab results ordered by the surgeon, Dr. Zazueta that she plans on doing today. 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 Shanell Zaidi MD May 16, 2014 Had decel when on L&D for TPTL last week, occas. deceleration. Had NST this week, reactive. BPP and growth US today, normal growth and fluid. Kick counts and f/u in 1-2 weeks. Ileana Vann MD SUPRV HIGH-RISK PREG NOS [V23.9] 03/03/2014 02/20/2015 Overview: Boy on us- Piyush Anemia 11/13/2013 02/20/2015 History of gastric bypass 10/28/20132015 Overview: 10/30/2013Patient has a history of gastric bypass surgery September 2012. She has a followup appointment December 05, 2013 with the surgeon and seaming inspector. She has several lab results ordered by the surgeon, Dr. Zazueta that she plans on doing today. 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 Shanell Zaidi MD May 16, 2014 Had decel when on L&D for TPTL last week, occas. deceleration. Had NST this week, reactive. BPP and growth US today, normal growth and fluid. Kick counts and f/u in 1-2 weeks. Ileana Vann MD SUPRV HIGH-RISK PREG NOS [V23.9] 03/03/2014 02/20/2015 Overview: Boy on us- Piyush Anemia 11/13/2013 02/20/2015 History of gastric bypass 10/28/20132015 Overview: 10/30/2013Patient has a history of gastric bypass surgery September 2012. She has a followup appointment December 05, 2013 with the surgeon and seaming inspector. She has several lab results ordered by the surgeon, Dr. Zazueta that she plans on doing today. 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 Shanell Zaidi MD May 16, 2014 Had decel when on L&D for TPTL last week, occas. deceleration. Had NST this week, reactive. BPP and growth US today, normal growth and fluid. Kick counts and f/u in 1-2 weeks. Ileana Vann MD SUPRV HIGH-RISK PREG NOS [V23.9] 03/03/2014 02/20/2015 Overview: Boy on us- Piyush Anemia 11/13/2013 02/20/2015 History of gastric bypass 10/28/20132015 Overview: 10/30/2013Patient has a history of gastric bypass surgery September 2012. She has a followup appointment December 05, 2013 with the surgeon and seaming inspector. She has several lab results ordered by the surgeon, Dr. Zazueta that she plans on doing today. 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 Shanell Zaidi MD May 16, 2014 Had decel when on L&D for TPTL last week, occas. deceleration. Had NST this week, reactive. BPP and growth US today, normal growth and fluid. Kick counts and f/u in 1-2 weeks. Ileana Vann MD SUPRV HIGH-RISK PREG NOS [V23.9] 03/03/2014 02/20/2015 Overview: Boy on us- Piyush Anemia 11/13/2013 02/20/2015 History of gastric bypass 10/28/20132015 Overview: 10/30/2013Patient has a history of gastric bypass surgery September 2012. She has a followup appointment December 05, 2013 with the surgeon and seaming inspector. She has several lab results ordered by the surgeon, Dr. Zazueta that she plans on doing today. 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 Shanell Zaidi MD May 16, 2014 Had decel when on L&D for TPTL last week, occas. deceleration. Had NST this week, reactive. BPP and growth US today, normal growth and fluid. Kick counts and f/u in 1-2 weeks. Ileana Vann MD [facility] HIGH-RISK PREG NOS [V23.9] 03/03/2014 02/20/2015 Overview: Boy on us- Piyush Anemia 11/13/2013 02/20/2015 History of gastric bypass 10/28/20132015 Overview: 10/30/2013Patient has a history of gastric bypass surgery September 2012. She has a followup appointment December 05, 2013 with the surgeon and seaming inspector. She has several lab results ordered by the surgeon, Dr. Zazueta that she plans on doing today. 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 Shanell Zaidi MD May 16, 2014 Had decel when on L&D for TPTL last week, occas. deceleration. Had NST this week, reactive. BPP and growth US today, normal growth and fluid. Kick counts and f/u in 1-2 weeks. Ileana Vann MD [facility] HIGH-RISK PREG NOS [V23.9] 03/03/2014 02/20/2015 Overview: Boy on us- Piyush Anemia 11/13/2013 02/20/2015 History of gastric bypass 10/28/20132015 Overview: 10/30/2013Patient has a history of gastric bypass surgery September 2012. She has a followup appointment December 05, 2013 with the surgeon and seaming inspector. She has several lab results ordered by the surgeon, Dr. Zazueta that she plans on doing today. 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 Shanell Zaidi MD May 16, 2014 Had decel when on L&D for TPTL last week, occas. deceleration. Had NST this week, reactive. BPP and growth US today, normal growth and fluid. Kick counts and f/u in 1-2 weeks. Ileana Vann MD [facility] HIGH-RISK PREG NOS [V23.9] 03/03/2014 02/20/2015 Overview: Boy on us- Piyush Anemia 11/13/2013 02/20/2015 History of gastric bypass 10/28/20132015 Overview: 10/30/2013Patient has a history of gastric bypass surgery September 2012. She has a followup appointment December 05, 2013 with the surgeon and seaming inspector. She has several lab results ordered by the surgeon, Dr. Zazueta that she plans on doing today. 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 Shanell Zaidi MD May 16, 2014 Had decel when on L&D for TPTL last week, occas. deceleration. Had NST this week, reactive. BPP and growth US today, normal growth and fluid. Kick counts and f/u in 1-2 weeks. Ileana Vann MD SUPRV HIGH-RISK PREG NOS [V23.9] 03/03/2014 02/20/2015 Overview: Boy on us- Piyush Anemia 11/13/2013 02/20/2015 History of gastric bypass 10/28/20132015 Overview: 10/30/2013Patient has a history of gastric bypass surgery September 2012. She has a followup appointment December 05, 2013 with the surgeon and seaming inspector. She has several lab results ordered by the surgeon, Dr. Zazueta that she plans on doing today. 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 Shanell Zaidi MD May 16, 2014 Had decel when on L&D for TPTL last week, occas. deceleration. Had NST this week, reactive. BPP and growth US today, normal growth and fluid. Kick counts and f/u in 1-2 weeks. Ileana Vann MD SUPRV HIGH-RISK PREG NOS [V23.9] 03/03/2014 02/20/2015 Overview: Boy on us- Piyush Anemia 11/13/2013 02/20/2015 History of gastric bypass 10/28/20132015 Overview: 10/30/2013Patient has a history of gastric bypass surgery September 2012. She has a followup appointment December 05, 2013 with the surgeon and seaming inspector. She has several lab results ordered by the surgeon, Dr. Zazueta that she plans on doing today. 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 Shanell Zaidi MD May 16, 2014 Had decel when on L&D for TPTL last week, occas. deceleration. Had NST this week, reactive. BPP and growth US today, normal growth and fluid. Kick counts and f/u in 1-2 weeks. Ileana Vann MD SUPRV HIGH-RISK PREG NOS [V23.9] 03/03/2014 02/20/2015 Overview: Boy on us- Piyush Anemia 11/13/2013 02/20/2015 History of gastric bypass 10/28/20132015 Overview: 10/30/2013Patient has a history of gastric bypass surgery September 2012. She has a followup appointment December 05, 2013 with the surgeon and seaming inspector. She has several lab results ordered by the surgeon, Dr. Zazueta that she plans on doing today. 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 Shanell Zaidi MD May 16, 2014 Had decel when on L&D for TPTL last week, occas. deceleration. Had NST this week, reactive. BPP and growth US today, normal growth and fluid. Kick counts and f/u in 1-2 weeks. Ileana Vann MD SUPRV HIGH-RISK PREG NOS [V23.9] 03/03/2014 02/20/2015 Overview: Boy on us- Piyush Anemia 11/13/2013 02/20/2015 History of gastric bypass 10/28/20132015 Overview: 10/30/2013Patient has a history of gastric bypass surgery September 2012. She has a followup appointment December 05, 2013 with the surgeon and seaming inspector. She has several lab results ordered by the surgeon, Dr. Zazueta that she plans on doing today. 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 Shanell Zaidi MD May 16, 2014 Had decel when on L&D for TPTL last week, occas. deceleration. Had NST this week, reactive. BPP and growth US today, normal growth and fluid. Kick counts and f/u in 1-2 weeks. Ileana Vann MD SUPRV HIGH-RISK PREG NOS [V23.9] 03/03/2014 02/20/2015 Overview: Boy on us- Piyush Anemia 11/13/2013 02/20/2015 History of gastric bypass 10/28/20132015 Overview: 10/30/2013Patient has a history of gastric bypass surgery September 2012. She has a followup appointment December 05, 2013 with the surgeon and seaming inspector. She has several lab results ordered by the surgeon, Dr. Zazueta that she plans on doing today. TKRN Irritability 03/06/2013 02/20/2015 Steatorrhea 01/01/2013 02/20/2015 Hypokalemia 01/01/2013 02/20/2015 Depression 12/19/2012 03/06/2013 Insomnia 12/19/2012 03/06/2013 Other and unspecified postsurgical nonabsorption 11/15/2012 12/19/2016 Costochondral chest pain 10/07/2011 015 Essential hypertension, benign 04/06/2011 0 02/20/2015 Overview: Resolved after weight loss surgery CONTRACTURE ACHILLES TENDON 10/24/200602/04 Sprain of ankle, unspecified site 08/10/2006 02/20/2015 documented as of this encounter (statuses as of 12/13/2022) [facility] History of Past illness Narrative* Problem Noted Date Resolved Date Counseling and coordination of care 12/24/2014 03/04/2015 depression 07/08/2014 05/02/2018 Threatened labor 05/14/2014 015 Overview: May 14, 2014 given BMZ 1-2 cm dilated no cervical change. Shanell Zaidi MD May 16, 2014 Had decel when on L&D for TPTL last week, occas. deceleration. Had NST this week, reactive. BPP and growth US today, normal growth and fluid. Kick counts and f/u in 1-2 weeks. Ileana Vann MD SUPRV HIGH-RISK PREG NOS [V23.9] 03/03/2014 02/20/2015 Overview: Boy on us- Piyush Anemia 11/13/2013 02/20/2015 History of gastric bypass 10/28/20132015 Overview: 10/30/2013Patient has a history of gastric bypass surgery September 2012. She has a followup appointment December 05, 2013 with the surgeon and seaming inspector. She has several lab results ordered by the surgeon, Dr. Zazueta that she plans on doing today. 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 Shanell Zaidi MD May 16, 2014 Had decel when on L&D for TPTL last week, occas. deceleration. Had NST this week, reactive. BPP and growth US today, normal growth and fluid. Kick counts and f/u in 1-2 weeks. Ileana Vann MD SUPRV HIGH-RISK PREG NOS [V23.9] 03/03/2014 02/20/2015 Overview: Boy on us- Piyush Anemia 11/13/2013 02/20/2015 History of gastric bypass 10/28/20132015 Overview: 10/30/2013Patient has a history of gastric bypass surgery September 2012. She has a followup appointment December 05, 2013 with the surgeon and seaming inspector. She has several lab results ordered by the surgeon, Dr. Zazueta that she plans on doing today. 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 Shanell Zaidi MD May 16, 2014 Had decel when on L&D for TPTL last week, occas. deceleration. Had NST this week, reactive. BPP and growth US today, normal growth and fluid. Kick counts and f/u in 1-2 weeks. Ileana Vann MD SUPRV HIGH-RISK PREG NOS [V23.9] 03/03/2014 02/20/2015 Overview: Boy on us- Piyush Anemia 11/13/2013 02/20/2015 History of gastric bypass 10/28/20132015 Overview: 10/30/2013Patient has a history of gastric bypass surgery September 2012. She has a followup appointment December 05, 2013 with the surgeon and seaming inspector. She has several lab results ordered by the surgeon, Dr. Zazueta that she plans on doing today. 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 Shanell Zaidi MD May 16, 2014 Had decel when on L&D for TPTL last week, occas. deceleration. Had NST this week, reactive. BPP and growth US today, normal growth and fluid. Kick counts and f/u in 1-2 weeks. Ileana Vann MD SUPRV HIGH-RISK PREG NOS [V23.9] 03/03/2014 02/20/2015 Overview: Boy on us- Piyush Anemia 11/13/2013 02/20/2015 History of gastric bypass 10/28/2013 Overview: 10/30/2013Patient has a history of gastric bypass surgery September 2012. She has a followup appointment December 05, 2013 with the surgeon and seaming inspector. She has several lab results ordered by the surgeon, Dr. Zazueta that she plans on doing today. TKRN Irritability 03/06/2013 02/20/2015 Steatorrhea 01/01/2013 02/20/2015 Hypokalemia 01/01/2013 02/20/2015 Depression 12/19/2012 03/06/2013 Insomnia 12/19/2012 03/06/2013 Other and unspecified postsu rgical nonabsorption 11/15/2012 12/19/2016 Costochondral chest pain 10/07/2011 Essential hypertension, benign 04/06/2011 02/20/2015 Overview: Resolved after weight loss surgery CONTRACTURE ACHILLES TENDON 10/24/2006 02/20/2015 Sprain of ankle, unspecified site 08/10/2006 02/20/2015 documented as of this encounter (statuses as of 03/10/2023) [facility] History of Past illness Narrative* Problem Noted Date Diagnosed Date Resolved Date Counseling and coordination of care 12/24/2014 03/04/2015 depression 07/08/20142017 Threatened labor 05/14/2014 Overview: May 14, 2014 given BMZ 1-2 cm dilated no cervical change. Shanell Zaidi MD May 16, 2014 Had decel when on L&D for TPTL last week, occas. deceleration. Had NST this week, reactive. BPP and growth US today, normal growth and fluid. Kick counts and f/u in 1-2 weeks. Ileana Vann MD SUPRV HIGH-RISK PREG NOS [V23.9] 03/03/2014 02/20/2015 Overview: Boy on us- Piyush Anemia 11/13/2013 02/20/2015 History of gastric bypass 10/28/2013 Overview: 10/30/2013Patient has a history of gastric bypass surgery September 2012. She has a followup appointment December 05, 2013 with the surgeon and seaming inspector. She has several lab results ordered by the surgeon, Dr. Zazueta that she plans on doing today. TKRN Irritability 03/06/2013 02/20/2015 Steatorrhea 01/01/2013 02/20/2015 Hypokalemia 01/01/2013 02/20/2015 Depression 12/19/2012 03/06/2013 Insomnia 12/19/2012 03/06/2013 Other and unspecified postsu rgical nonabsorption 11/15/2012 12/19/2016 Costochondral chest pain 10/07/2011 Essential hypertension, benign 04/06/2011 02/20/2015 Overview: Resolved after weight loss surgery CONTRACTURE ACHILLES TENDON 10/24/2006 02/20/2015 Sprain of ankle, unspecified site 08/10/2006 02/20/2015 documented as of this encounter (statuses as of 05/13/2023) [facility] History of Past illness Narrative* Problem Noted Date Diagnosed Date Resolved Date Counseling and coordination of care 12/24/2014 03/04/2015 depression 07/08/20142017 Threatened labor 05/14/2014 Overview: May 14, 2014 given BMZ 1-2 cm dilated no cervical change. Shanell Zaidi MD May 16, 2014 Had decel when on L&D for TPTL last week, occas. deceleration. Had NST this week, reactive. BPP and growth US today, normal growth and fluid. Kick counts and f/u in 1-2 weeks. Ileana Vann MD SUPRV HIGH-RISK PREG NOS [V23.9] 03/03/2014 02/20/2015 Overview: Boy on us- Piyush Anemia 11/13/2013 02/20/2015 History of gastric bypass 10/28/2013 Overview: 10/30/2013Patient has a history of gastric bypass surgery September 2012. She has a followup appointment December 05, 2013 with the surgeon and seaming inspector. She has several lab results ordered by the surgeon, Dr. Zazueta that she plans on doing today. TKRN Irritability 03/06/2013 02/20/2015 Steatorrhea 01/01/2013 02/20/2015 Hypokalemia 01/01/2013 02/20/2015 Depression 12/19/2012 03/06/2013 Insomnia 12/19/2012 03/06/2013 Other and unspecified postsu rgical nonabsorption 11/15/2012 12/19/2016 Costochondral chest pain 10/07/2011 Essential hypertension, benign 04/06/2011 02/20/2015 Overview: Resolved after weight loss surgery CONTRACTURE ACHILLES TENDON 10/24/2006 02/20/2015 Sprain of ankle, unspecified site 08/10/2006 02/20/2015 documented as of this encounter (statuses as of 05/17/2023) [facility] History of Past illness Narrative* Problem Noted Date Diagnosed Date Resolved Date Counseling and coordination of care 12/24/2014 03/04/2015 depression 07/08/20142017 Threatened labor 05/14/2014 Overview: May 14, 2014 given BMZ 1-2 cm dilated no cervical change. Shanell Zaidi MD May 16, 2014 Had decel when on L&D for TPTL last week, occas. deceleration. Had NST this week, reactive. BPP and growth US today, normal growth and fluid. Kick counts and f/u in 1-2 weeks. Ileana Vann MD SUPRV HIGH-RISK PREG NOS [V23.9] 03/03/2014 02/20/2015 Overview: Boy on us- Piyush Anemia 11/13/2013 02/20/2015 History of gastric bypass 10/28/2013 Overview: 10/30/2013Patient has a history of gastric bypass surgery September 2012. She has a followup appointment December 05, 2013 with the surgeon and seaming inspector. She has several lab results ordered by the surgeon, Dr. Zazueta that she plans on doing today. 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 Shanell Zaidi MD May 16, 2014 Had decel when on L&D for TPTL last week, occas. deceleration. Had NST this week, reactive. BPP and growth US today, normal growth and fluid. Kick counts and f/u in 1-2 weeks. Ileana Vann MD SUPRV HIGH-RISK PREG NOS [V23.9] 03/03/2014 02/20/2015 Overview: Boy on us- Piyush Anemia 11/13/2013 02/20/2015 History of gastric bypass 10/28/2013 Overview: 10/30/2013Patient has a history of gastric bypass surgery September 2012. She has a followup appointment December 05, 2013 with the surgeon and seaming inspector. She has several lab results ordered by the surgeon, Dr. Zazueta that she plans on doing today. TKRN Irritability 03/06/2013 02/20/2015 Steatorrhea 01/01/2013 02/20/2015 Hypokalemia 01/01/2013 02/20/2015 Depression 12/19/2012 03/06/2013 Insomnia 12/19/2012 03/06/2013 Other and unspecified postsu rgical nonabsorption 11/15/2012 12/19/2016 Costochondral chest pain 10/07/2011 Essential hypertension, benign 04/06/2011 02/20/2015 Overview: Resolved after weight loss surgery CONTRACTURE ACHILLES TENDON 10/24/2006 02/20/2015 Sprain of ankle, unspecified site 08/10/2006 02/20/2015 documented as of this encounter (statuses as of 07/12/2023) [facility] History of Past illness Narrative* Problem Noted Date Diagnosed Date Resolved Date Counseling and coordination of care 12/24/2014 03/04/2015 depression 07/08/20142017 Threatened labor 05/14/2014 Overview: May 14, 2014 given BMZ 1-2 cm dilated no cervical change. Shanell Zaidi MD May 16, 2014 Had decel when on L&D for TPTL last week, occas. deceleration. Had NST this week, reactive. BPP and growth US today, normal growth and fluid. Kick counts and f/u in 1-2 weeks. Ileana Vann MD SUPRV HIGH-RISK PREG NOS [V23.9] 03/03/2014 02/20/2015 Overview: Boy on us- Piyush Anemia 11/13/2013 02/20/2015 History of gastric bypass 10/28/2013 Overview: 10/30/2013Patient has a history of gastric bypass surgery September 2012. She has a followup appointment December 05, 2013 with the surgeon and seaming inspector. She has several lab results ordered by the surgeon, Dr. Zazueta that she plans on doing today. 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 Shanell Zaidi MD May 16, 2014 Had decel when on L&D for TPTL last week, occas. deceleration. Had NST this week, reactive. BPP and growth US today, normal growth and fluid. Kick counts and f/u in 1-2 weeks. Ileana Vann MD SUPRV HIGH-RISK PREG NOS [V23.9] 03/03/2014 02/20/2015 Overview: Boy on us- Piyush Anemia 11/13/2013 02/20/2015 History of gastric bypass 10/28/2013 Overview: 10/30/2013Patient has a history of gastric bypass surgery September 2012. She has a followup appointment December 05, 2013 with the surgeon and seaming inspector. She has several lab results ordered by the surgeon, Dr. Zazueta that she plans on doing today. TKRN Irritability 03/06/2013 02/20/2015 Steatorrhea 01/01/2013 02/20/2015 Hypokalemia 01/01/2013 02/20/2015 Depression 12/19/2012 03/06/2013 Insomnia 12/19/2012 03/06/2013 Other and unspecified postsu rgical nonabsorption 11/15/2012 12/19/2016 Costochondral chest pain 10/07/2011 Essential hypertension, benign 04/06/2011 02/20/2015 Overview: Resolved after weight loss surgery CONTRACTURE ACHILLES TENDON 10/24/2006 02/20/2015 Sprain of ankle, unspecified site 08/10/2006 02/20/2015 documented as of this encounter (statuses as of 09/14/2023) [facility] of Past illness Narrative* Problem Noted Date Diagnosed Date Resolved Date Counseling and coordination of care 12/24/2014 03/04/2015 depression 07/08/20142017 Threatened labor 05/14/2014 Overview: May 14, 2014 given BMZ 1-2 cm dilated no cervical change. Shanell Zaidi MD May 16, 2014 Had decel when on L&D for TPTL last week, occas. deceleration. Had NST this week, reactive. BPP and growth US today, normal growth and fluid. Kick counts and f/u in 1-2 weeks. Ileana Vann MD SUPRV HIGH-RISK PREG NOS [V23.9] 03/03/2014 02/20/2015 Overview: Boy on us- Piyush Anemia 11/13/2013 02/20/2015 History of gastric bypass 10/28/2013 Overview: 10/30/2013Patient has a history of gastric bypass surgery September 2012. She has a followup appointment December 05, 2013 with the surgeon and seaming inspector. She has several lab results ordered by the surgeon, Dr. Zazueta that she plans on doing today. TKRN Irritability 03/06/2013 02/20/2015 Steatorrhea 01/01/2013 02/20/2015 Hypokalemia 01/01/2013 02/20/2015 Depression 12/19/2012 03/06/2013 Insomnia 12/19/2012 03/06/2013 Other and unspecified postsu rgical nonabsorption 11/15/2012 12/19/2016 Costochondral chest pain 10/07/2011 Essential hypertension, benign 04/06/2011 02/20/2015 Overview: Resolved after weight loss surgery CONTRACTURE ACHILLES TENDON 10/24/2006 02/20/2015 Sprain of ankle, unspecified site 08/10/2006 02/20/2015 documented as of this encounter (statuses as of 09/24/2023) [facility]recurrent pansinus[facility]- [facility] Anxiety- Primary Anxiety state, unspecified [facility] Encounter for dietary counseling and surveillance- Primary Dietary surveillance and counseling [facility] Diagnosis Acute midline low back pain without sciatica- Primary [facility] Diagnosis Acute otitis media, right- Primary Unspecified otitis media Elevated glucose Other abnormal glucose Class 3 severe obesity due to excess calories without serious comorbidity with body mass index (BMI) of 50.0 to 59.9 in adult ([facility]) History of high blood pressure Personal history of other diseases of circulatory system documented in this encounter [facility] note* Diagnosis Symptoms of upper respiratory infection (URI)- Primary Localized swelling, mass and lump, neck Swelling, mass, or lump in head and neck Fatigue, unspecified type Elevated glucose Other abnormal glucose Acute recurrent sinusitis, unspecified location Class 3 severe obesity due to excess calories with body mass index (BMI) of 60.0 to 69.9 in adult, unspecified whether serious comorbidity present ([facility]) documented in this encounter [facility] note* Diagnosis Costochondritis- Primary Tietze's disease Palpitations SOB (shortness of breath) Shortness of breath Fatigue, unspecified type Viral upper respiratory tract infection Acute upper respiratory infections of unspecified site Vitamin D deficiency Unspecified vitamin D deficiency documented in this encounter [facility] note* Diagnosis PCOS (polycystic ovarian syndrome)- Primary Polycystic ovaries Obesity, Class III, BMI 40-49.9 (morbid obesity) ([facility]) Morbid obesity documented in this encounter [facility] note* Diagnosis H/O motion sickness- Primary Personal history of other specified diseases documented in this encounter [facility] note* Diagnosis URI, acute- Primary Acute upper respiratory infections of unspecified site Sinus pressure Other diseases of nasal cavity and sinuses documented in this encounter [facility] note* Diagnosis Localized swelling, mass and lump, neck Swelling, mass, or lump in head and neck documented in this encounter [facility] note* Diagnosis Medication management- Primary Encounter for long-term (current) use of other medications Vitamin D deficiency Unspecified vitamin D deficiency Wellness examination documented in this encounter [facility] note* Diagnosis Upper back pain- Primary documented in this encounter [facility] for referral (narrative)* Diagnostic Procedure Only (Routine) - Pending Review Specialty Diagnoses / Procedures Referred By Abby cueva Referred To Contact XR IMAGING Diagnoses Acute midline low back pain without sciatica Procedures XR LUMBAR GENERAL 3V AP/LAT/L5-S1 RADEX SPINE LUMBOSACRAL 2/3 VIEWS Filomena Salazar, FERRIS WHEEL OPERATOR.MILITARY COMMUNICATIONS SPECIALIST [address] [place] [address] Xr Imaging Referral ID Status Reason Start Date Expiration Date Visits Requested Visits Authorized [id number] Pending Review Auto-Generat ed Referral 2 06/26/2023 1 1 * Diagnostic Procedure Only (Routine) - Pending Review Specialty Diagnoses / Procedures Referred By Contac t Referred To Contact XR IMAGING Diagnoses Acute midline low back pain without sciatica Procedures XR THORACIC GENERAL 3V AP/LAT/SWIMMERS RADEX SPINE THORACIC 3 VIEWS Filomena Salazar APRN.MILITARY COMMUNICATIONS SPECIALIST [address] [place] [address] Xr Imaging Referral ID Status Reason Start Date Expiration Date Visits Requested Visits Authorized [id number] Pending Review Auto-Generat ed Referral 2 06/26/2023 1 1 [facility] for referral (narrative)* Diagnostic Procedure Only (Routine) - Authorized Specialty Diagnoses / Procedures Referred By Contac t Referred To Contact US IMAGING Diagnoses Localized swelling, mass and lump, neck Procedures US HEAD/NECK SOFT TISSUE OTHER US SOFT TISSUE HEAD & NECK REAL TIME IMGE Francy Tate APRN.MILITARY COMMUNICATIONS SPECIALIST [address] [place] [address] Us Imaging Referral ID Status Reason Start Date Expiration Date Visits Requested Visits Authorized [id number] Authorized Auto-Generat ed Referral 11/21/2022 12/21/2023 1 1 [facility] Outpatient Procedure (Routine) - Closed Specialty Diagnoses / Procedures Referred By Contac t Referred To Contact [facility] Diagnoses Palpitations Procedures ECG COMPLETE ECG ROUTINE ECG W/LEAST 12 LDS W/I&R Francy Hickey APRN.MILITARY COMMUNICATIONS SPECIALIST [address] [place] [address] [facility] [address] [place] [address] Referral ID Status Reason Start Date Expiration Date V isits Requested Visits Authorized [id number] Closed Auto-Generate d Referral 11/23/2022 11/23/2023 1 1 [facility] Diagnostic Procedure Only (Routine) - Closed Specialty Diagnoses / Procedures Referred By Contac t Referred To Contact US IMAGING Diagnoses Localized swelling, mass and lump, neck Procedures US HEAD/NECK SOFT TISSUE OTHER US SOFT TISSUE HEAD & NECK REAL TIME IMGE DOCM Francy Hickey APRN.MILITARY COMMUNICATIONS SPECIALIST [address] [place] [address] [place] [address] Referral ID Status Reason Start Date Expiration Date V isits Requested Visits Authorized [id number] Closed Auto-Generate d Referral 11/21/2022 12/21/2023 1 1 [facility] Summary Purpose Family History No Family History Records FoundNo Family History Records FoundNo Family History Records Found Advance Directives Documents on File Type Date Recorded 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 Advance Directive(s) 12/26/2020 1:32 PM Documents on File Type Date Recorded 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 Advance Directive(s) 12/26/2020 1:32 PM Reason for Referral Specialty Diagnoses / Procedures Referred By Contac t Referred To Contact Diagnoses Anxiety Procedures CONSULT TO PSYCHIATRY OFFICE/OUTPATIENT [facility] MDM 60-74 MINUTES Tracy Bradley MD [address] [place] [address] Referral ID Status Reason Start Date Expiration Date Visits Requested Visits Authorized [id number] Pending Review PCP Requested Referral 03/09/2022 03/09/2023 1 1 Specialty Diagnoses / Procedures Referred By Contac t Referred To Contact Diagnoses Class 3 severe obesity due to excess calories without serious comorbidity with body mass index (BMI) of 50.0 to 59.9 in adult (HCC) History of high blood pressure Francy Hickey APRN.MILITARY COMMUNICATIONS SPECIALIST [address] [facility] [place] [address] Referral ID Status Reason Start Date Expiration Date Visits Re quested Visits Authorized [id number] Closed 1 1 Specialty Diagnoses / Procedures Referred By Abby t Referred To Contact Diagnoses PCOS (polycystic ovarian syndrome) Obesity, Class III, BMI 40-49.9 (morbid obesity) (HCC) Francy Hickey, ROSI.MILITARY COMMUNICATIONS SPECIALIST [address] [facility] [place] [address] Referral ID Status Reason Start Date Expiration Date Visits Re quested Visits Authorized [id number] Closed 1 1 Additional Source Comments INFORMATION SOURCE (unrecogn ized section and content) DATE CREATED AUTHOR AUTHOR'S ORGANIZ ATION 01/01/2021 [facility] DATE CREATED AUTHOR AUTHOR'S ORGANIZ ATION 06/09/2023 [facility] Source Comments (unrecognize d section and content) In the event this informatio n is protected by the Federal Confidentiality of Alcohol and Drug Abuse Patient Records regulations: The Federal rules restrict any use of the information to criminally investigate or prosecute any alcohol or drug abuse patient.[facility] the event this information is protected by the Federal Confidentiality of Alcohol and Drug Abuse Patient Records regulations: The Federal rules restrict any use of the information to criminally investigate or prosecute any alcohol or drug abuse patient.[facility] the event this information is protected by the Federal Confidentiality of Alcohol and Drug Abuse Patient Records regulations: The Federal rules restrict any use of the information to criminally investigate or prosecute any alcohol or drug abuse patient.[facility] the event this information is protected by the Federal Confidentiality of Alcohol and Drug Abuse Patient Records regulations: The Federal rules restrict any use of the information to criminally investigate or prosecute any alcohol or drug abuse patient.[facility] the event this information is protected by the Federal Confidentiality of Alcohol and Drug Abuse Patient Records regulations: The Federal rules restrict any use of the information to criminally investigate or prosecute any alcohol or drug abuse patient.[facility] the event this information is protected by the Federal Confidentiality of Alcohol and Drug Abuse Patient Records regulations: The Federal rules restrict any use of the information to criminally investigate or prosecute any alcohol or drug abuse patient.[facility] the event this information is protected by the Federal Confidentiality of Alcohol and Drug Abuse Patient Records regulations: The Federal rules restrict any use of the information to criminally investigate or prosecute any alcohol or drug abuse patient.[facility] the event this information is protected by the Federal Confidentiality of Alcohol and Drug Abuse Patient Records regulations: The Federal rules restrict any use of the information to criminally investigate or prosecute any alcohol or drug abuse patient.[facility] the event this information is protected by the Federal Confidentiality of Alcohol and Drug Abuse Patient Records regulations: The Federal rules restrict any use of the information to criminally investigate or prosecute any alcohol or drug abuse patient.[facility] the event this information is protected by the Federal Confidentiality of Alcohol and Drug Abuse Patient Records regulations: The Federal rules restrict any use of the information to criminally investigate or prosecute any alcohol or drug abuse patient.[facility] the event this information is protected by the Federal Confidentiality of Alcohol and Drug Abuse Patient Records regulations: The Federal rules restrict any use of the information to criminally investigate or prosecute any alcohol or drug abuse patient.[facility] the event this information is protected by the Federal Confidentiality of Alcohol and Drug Abuse Patient Records regulations: The Federal rules restrict any use of the information to criminally investigate or prosecute any alcohol or drug abuse patient.[facility] the event this information is protected by the Federal Confidentiality of Alcohol and Drug Abuse Patient Records regulations: The Federal rules restrict any use of the information to criminally investigate or prosecute any alcohol or drug abuse patient.[facility] the event this information is protected by the Federal Confidentiality of Alcohol and Drug Abuse Patient Records regulations: The Federal rules restrict any use of the information to criminally investigate or prosecute any alcohol or drug abuse patient.[facility] the event this information is protected by the Federal Confidentiality of Alcohol and Drug Abuse Patient Records regulations: The Federal rules restrict any use of the information to criminally investigate or prosecute any alcohol or drug abuse patient.[facility] the event this information is protected by the Federal Confidentiality of Alcohol and Drug Abuse Patient Records regulations: The Federal rules restrict any use of the information to criminally investigate or prosecute any alcohol or drug abuse patient.[facility] the event this information is protected by the Federal Confidentiality of Alcohol and Drug Abuse Patient Records regulations: The Federal rules restrict any use of the information to criminally investigate or prosecute any alcohol or drug abuse patient.[facility] the event this information is protected by the Federal Confidentiality of Alcohol and Drug Abuse Patient Records regulations: The Federal rules restrict any use of the information to criminally investigate or prosecute any alcohol or drug abuse patient.[facility] the event this information is protected by the Federal Confidentiality of Alcohol and Drug Abuse Patient Records regulations: The Federal rules restrict any use of the information to criminally investigate or prosecute any alcohol or drug abuse patient.[facility] the event this information is protected by the Federal Confidentiality of Alcohol and Drug Abuse Patient Records regulations: The Federal rules restrict any use of the information to criminally investigate or prosecute any alcohol or drug abuse patient.[facility] the event this information is protected by the Federal Confidentiality of Alcohol and Drug Abuse Patient Records regulations: The Federal rules restrict any use of the information to criminally investigate or prosecute any alcohol or drug abuse patient.[facility] the event this information is protected by the Federal Confidentiality of Alcohol and Drug Abuse Patient Records regulations: The Federal rules restrict any use of the information to criminally investigate or prosecute any alcohol or drug abuse patient.[facility] the event this information is protected by the Federal Confidentiality of Alcohol and Drug Abuse Patient Records regulations: The Federal rules restrict any use of the information to criminally investigate or prosecute any alcohol or drug abuse patient.[facility] the event this information is protected by the Federal Confidentiality of Alcohol and Drug Abuse Patient Records regulations: The Federal rules restrict any use of the information to criminally investigate or prosecute any alcohol or drug abuse patient.[facility] the event this information is protected by the Federal Confidentiality of Alcohol and Drug Abuse Patient Records regulations: The Federal rules restrict any use of the information to criminally investigate or prosecute any alcohol or drug abuse patient.[facility] the event this information is protected by the Federal Confidentiality of Alcohol and Drug Abuse Patient Records regulations: The Federal rules restrict any use of the information to criminally investigate or prosecute any alcohol or drug abuse patient.[facility] the event this information is protected by the Federal Confidentiality of Alcohol and Drug Abuse Patient Records regulations: The Federal rules restrict any use of the information to criminally investigate or prosecute any alcohol or drug abuse patient.[facility] the event this information is protected by the Federal Confidentiality of Alcohol and Drug Abuse Patient Records regulations: The Federal rules restrict any use of the information to criminally investigate or prosecute any alcohol or drug abuse patient.[facility] Reason for Visit (unrecogniz ed section and content) Reason Comments Sinus Problem Reason Comments Patient Update Reason Onset Date Comments Weight Problem 03/24/2022 Reason Comments Weight Check Reason Onset Date Comments Home Planning Consultant Salesperson - Other 05/06/2022 Goal up date Reason Comments Pain Pt just stretched in bed instant pain started yesterday. Reason Comments Discussion Weight loss medicati on/ possible R ear infection- started with pain last evening Reason Comments Patient Update Medication Refill Co nsent Reason Onset Date Comments Weight Problem 07/01/2022 Reason Comments Discussion Discuss weight loss medication Reason Comments Results Reason Onset Date Comments Weight Problem 12/13/2022 Reason Comments Patient Update Orders Reason Comments Insurance Authorization Reason Onset Date Comments Weight Problem 02/08/2023 Reason Onset Date Comments Weight Problem 05/11/2023 Reason Comments Sinus Problem headache, cough and congestion x 6 days Reason Comments Radiology US Specialty Diagnoses / Procedures Referred By Abby cueva Referred To Contact US IMAGING Diagnoses Localized swelling, mass and lump, neck Procedures US HEAD/NECK SOFT TISSUE OTHER US SOFT TISSUE HEAD & NECK REAL TIME IMGE DOCM Francy Hickey, FERRIS WHEEL OPERATOR.MILITARY COMMUNICATIONS SPECIALIST [address] [place] [address] [place] [address] Referral ID Status Reason Start Date Expiration Date V isits Requested Visits Authorized [id number] Closed Auto-Generate d Referral 11/21/2022 12/21/2023 1 1 Reason Onset Date Comments Weight Problem 07/12/2023 Reason Onset Date Comments Weight Problem 09/13/2023 Reason Comments Pain Care Teams (unrecognized sec tion and content) Dope Mixer Relationship Specialty Start Date End Date Francy Hickey, FERRIS WHEEL OPERATOR.MILITARY COMMUNICATIONS SPECIALIST [address] [place] [address] PCP - General Family Practice 02/12/21 Aedla Fuentes, RN EHP Home Planning Consultant Salesperson 01/09/22 Dope Mixer Relationship Specialty Start Date End Date Francy Hickey, FERRIS WHEEL OPERATOR.MILITARY COMMUNICATIONS SPECIALIST [address] [place] [address] PCP - General Family Practice 02/12/21 Adela Fuentes, RN EHP Home Planning Consultant Salesperson 01/09/22 Dope Mixer Relationship Specialty Start Date End Date Francy Hickey, FERRIS WHEEL OPERATOR.MILITARY COMMUNICATIONS SPECIALIST [address] [place] [address] PCP - General Family Practice 02/12/21 Adela Fuentes, RN EHP Home Planning Consultant Salesperson 01/09/22 Dope Mixer Relationship Specialty Start Date End Date Francy Hickey, FERRIS WHEEL OPERATOR.MILITARY COMMUNICATIONS SPECIALIST [address] [place] [address] PCP - General Family Medicine 02/12/21 Adela Fuentes, RN EHP Home Planning Consultant Salesperson 01/09/22 Dope Mixer Relationship Specialty Start Date End Date Francy Hickey, FERRIS WHEEL OPERATOR.MILITARY COMMUNICATIONS SPECIALIST [address] [facility] [place] [address] PCP - General Family Medicine 02/12/21 Adela Fuentes, TATY EHP Home Planning Consultant Salesperson 01/09/22 Dope Mixer Relationship Specialty Start Date End Date Francy Hickey, FERRIS WHEEL OPERATOR.MILITARY COMMUNICATIONS SPECIALIST [address] [facility] [place] [address] PCP - General Family Medicine 02/12/21 Adela Fuentes RN EHP Home Planning Consultant Salesperson 01/09/22 Dope Mixer Relationship Specialty Start Date End Date Francy Hickey, FERRIS WHEEL OPERATOR.MILITARY COMMUNICATIONS SPECIALIST [address] [facility] [place] [address] PCP - General Family Medicine 02/12/21 Adela Fuentes RN EHP Home Planning Consultant Salesperson 01/09/22 Dope Mixer Relationship Specialty Start Date End Date Francy Hickey, FERRIS WHEEL OPERATOR.MILITARY COMMUNICATIONS SPECIALIST [address] [facility] [place] [address] PCP - General Family Medicine 02/12/21 Adela Fuentes RN EHP Home Planning Consultant Salesperson 01/09/22 Dope Mixer Relationship Specialty Start Date End Date Francy Hickey, FERRIS WHEEL OPERATOR.MILITARY COMMUNICATIONS SPECIALIST [address] [facility] [place] [address] PCP - General Family Medicine 02/12/21 Adela Fuentes, RN EHP Home Planning Consultant Salesperson 01/09/22 Dope Mixer Relationship Specialty Start Date End Date Francy Hickey, FERRIS WHEEL OPERATOR.MILITARY COMMUNICATIONS SPECIALIST [address] [facility] [place] [address] PCP - General Family Medicine 02/12/21 Adela Fuentes, RN EHP Home Planning Consultant Salesperson 01/09/22 Dope Mixer Relationship Specialty Start Date End Date Francy Hickey, FERRIS WHEEL OPERATOR.MILITARY COMMUNICATIONS SPECIALIST [address] [facility] [place] [address] PCP - General Family Medicine 02/12/21 Adela Fuentes, RN EHP Home Planning Consultant Salesperson 01/09/22 Dope Mixer Relationship Specialty Start Date End Date Francy Hickey, FERRIS WHEEL OPERATOR.MILITARY COMMUNICATIONS SPECIALIST [address] [facility] [place] [address] PCP - General Family Medicine 02/12/21 Adela Fuentes, TATY EHP Home Planning Consultant Salesperson 01/09/22 Dope Mixer Relationship Specialty Start Date End Date Francy Hickey, FERRIS WHEEL OPERATOR.MILITARY COMMUNICATIONS SPECIALIST [address] [place] [address] PCP - General Family Medicine 02/12/21 Adela Fuentes, RN EHP Home Planning Consultant Salesperson 01/09/22 Dope Mixer Relationship Specialty Start Date End Date Francy Hickey, FERRIS WHEEL OPERATOR.MILITARY COMMUNICATIONS SPECIALIST [address] [facility] [place] [address] PCP - General Family Medicine 02/12/21 Adela Fuentes, TATY EHP Home Planning Consultant Salesperson 01/09/22 Dope Mixer Relationship Specialty Start Date End Date Francy Hickey, FERRIS WHEEL OPERATOR.MILITARY COMMUNICATIONS SPECIALIST [address] [facility] [place] [address] PCP - General Family Medicine 02/12/21 Adela Fuentes, RN EHP Home Planning Consultant Salesperson 01/09/22 Dope Mixer Relationship Specialty Start Date End Date Francy Hickey, FERRIS WHEEL OPERATOR.MILITARY COMMUNICATIONS SPECIALIST [address] [facility] [place] [address] PCP - General Family Medicine 02/12/21 Adela Fuentes, RN EHP Home Planning Consultant Salesperson 01/09/22 Dope Mixer Relationship Specialty Start Date End Date Francy Hickey FERRIS WHEEL OPERATOR.MILITARY COMMUNICATIONS SPECIALIST [address] [facility] [place] [address] PCP - General Family Medicine 02/12/21 Adela Fuentes, TATY EHP Home Planning Consultant Salesperson 01/09/22 Dope Mixer Relationship Specialty Start Date End Date Francy Hickey, FERRIS WHEEL OPERATOR.MILITARY COMMUNICATIONS SPECIALIST [address] [place] [address] PCP - General Family Medicine 02/12/21 Adela Fuentes, TATY EHP Home Planning Consultant Salesperson 01/09/22 Dope Mixer Relationship Specialty Start Date End Date Francy Hickey FERRIS WHEEL OPERATOR.MILITARY COMMUNICATIONS SPECIALIST [address] [place] [address] PCP - General Family Medicine 02/12/21 Adela Fuentes RN EHP Home Planning Consultant Salesperson 01/09/22 Dope Mixer Relationship Specialty Start Date End Date Francy Hickey, FERRIS WHEEL OPERATOR.MILITARY COMMUNICATIONS SPECIALIST [address] [place] [address] PCP - General Family Medicine 02/12/21 Adela Fuentes, RN EHP Home Planning Consultant Salesperson 01/09/22 Dope Mixer Relationship Specialty Start Date End Date Francy Hickey FERRIS WHEEL OPERATOR.MILITARY COMMUNICATIONS SPECIALIST [address] [place] [address] PCP - General Family Medicine 02/12/21 Adela Fuentes, RN EHP Home Planning Consultant Salesperson 01/09/22 Dope Mixer Relationship Specialty Start Date End Date Francy Hickey, FERRIS WHEEL OPERATOR.MILITARY COMMUNICATIONS SPECIALIST [address] [place] [address] PCP - General Family Medicine 02/12/21 Adela Fuentes, RN [facility] Home Planning Consultant Salesperson 01/09/22 FOR RECORDS PERTAINING TO PATIENTS WHO ARE OR HAVE BEEN ENROLLED IN A CHEMICAL DEPENDENCY/SUBSTANCEABUSE PROGRAM, SOME INFORMATION MAY BE OMITTED. This clinical summary was aggregated from multiple sources. Caution should be exercised in using it in the provision of clinical care. This summary normalizes information from multiple sources, and as a consequence, information in this document may materially change the coding, format and clinical context of patient data. In addition, data may be omitted in some cases. CLINICAL DECISIONS SHOULD BE BASED ON THE PRIMARY CLINICAL RECORDS. [employer] [facility]. provides no warranty or guarantee of the accuracy or completeness of information in this document.
[2023-09-24 15:40] VITALS: BP 135/82; PULSE 66; RESP 18; TEMP 36.1; O2SAT 99
== END 2023-09-24 15:46 | disposition home or self-care (01) ==
PROVIDERS: Emergency Provider Emergency Medicine; PCP Registered Nurse; Visit Provider Emergency Medicine
DX: M54.9 Dorsalgia, unspecified (principal); M25.511 Pain in right shoulder; R07.9 Chest pain, unspecified
CPT/HCPCS: 71045; 72070; 80048; 84484; 85025; 85379; 93005; 96374; 96375; 99283; A4216; J2405

== ENCOUNTER 2023-11-23 14:11 | Inpatient (IN) | payer OTHER, SELFPAY ==
[2023-11-23] VITALS (9 sets, daily range): BP systolic 126–159; BP diastolic 38–81; PULSE 75–92; RESP 14–20; TEMP 36.3–37.6; O2SAT 94–99; BMI 62.5; BMI 62.1
--- NOTE | 2023-11-23 14:36 | CT_ITS ---
STUDY: CT ABDOMEN AND PELVIS WITH CONTRAST REASON FOR EXAM: Female, 33 years old. Abdominal pain RADIATION DOSAGE (If Supplied By Facility): CTDIvol = ( 15.42 ) mGy, DLP = ( 1432.02 ) mGycm TECHNIQUE: Transaxial images were obtained from the dome of the diaphragm to the symphysis pubis without oral contrast. ISOVUE 370-100ml was administered. Sagittal and coronal images were reconstructed. Individualized dose optimization techniques were used for this CT. COMPARISON: None. FINDINGS: The visualized lung bases are unremarkable. The visualized portions of the heart are within normal limits. There is hepatomegaly with diffuse hepatic enlargement. There is non-visualization of the gallbladder, which may be secondary to either contraction or a prior cholecystectomy. Normal spleen. Normal pancreas. Normal bilateral adrenal glands. Normal right kidney. Normal left kidney. There is postoperative change of the stomach. Normal small intestine. There is diverticulosis, with thickening of the sigmoid colon wall, and pericolonic inflammation changes consistent with acute diverticulitis. There are surgical clips in the region of the appendix consistent with a prior appendectomy. Normal abdominal aorta. Normal inferior vena cava. Normal retroperitoneum. Normal urinary bladder. There is IUD in the uterus. There is no free fluid in the abdomen or pelvis. Normal abdominal wall. Normal osseous structures. CT/Abdomen/Pelvis W IV Cont ONLY IMPRESSION: Sigmoid diverticulitis. No obstruction or abscess. Electronically Signed: Kev Wallace MD at 18:30 EDT ,
--- NOTE | 2023-11-23 14:43 | EDS_ITS ---
HPI <DICK Henry - Last Filed: 11/23/23 19:50> History of Present Illness Chief Complaint: Abd Pain Narrative Narrative: 33-year-old female with past medical history of HTN, PCOS, morbid obesity s/p gastric bypass, cholecystectomy, appendectomy and diverticulitis states she recently was admitted for diverticulitis with an abscess. Her abdominal pain started around November 09. She was transferred from [facility] to [facility]. She states the abscess was 2.9 cm and was too small for drainage and was treated with IV Zosyn. She went home on November 16 and is taking Augmentin and had been tolerating p.o. intake with minimal abdominal pain. Today after having a bowel movement she had sudden sharp left lower abdominal pain. She denies constipation or melena or hematochezia. No fever or chills. She is not taking narcotics. [facility] <DICK Henry - Last Filed: 11/23/23 19:50> [facility] Medical History Anxiety Home Medications fluoxetine 40 mg capsule 40 mg PO DAILY 05/26/22 [History Last Taken Unknown] amoxicillin 500 mg-potassium clavulanate 125 mg tablet (Augmentin) 1 tab PO BID 11/23/23 [History Last Taken Unknown] Allergy/AdvReac Type Severity Reaction Status Date / Time adhesive Allergy Rash Verified 11/23/23 14:15 lisinopril AdvReac GI upset Verified 11/23/23 14:15 Social History Smoking Status: Never smoker ROS <DICK Henry - Last Filed: 11/23/23 19:50> ROS ED ROS Narrative Constitutional: Negative for fever, chills, malaise. CVS: Negative for chest pain. Respiratory: Negative for shortness of breath. GI: Positive for abdominal pain. Negative for vomiting, constipation, melena, hematochezia. : Negative for dysuria, hematuria or frequency. EXAM <DICK Henry - Last Filed: 11/23/23 19:50> Physical Exam Narrative Exam Narrative: CONST: Patient lying in bed appears uncomfortable. EYES: Normal inspection. NECK: Normal inspection. RESP: No respiratory distress, CTAB. CVS: Regular rate and rhythm, no murmur, no gallop. ABD: Soft with left lower quadrant tenderness, no guarding or rebound, nondistended. SKIN: Color normal, no rash, warm, dry, intact. EXTREMITIES: Normal appearance, no pedal edema. NEURO: Alert and answering questions appropriately. PSYCH: Normal affect. Const Vital Signs: 11/23/23 14:12 11/23/23 14:11 11/23/23 14:11 Temperature 97.4 F L 97.4 F L 97.4 F L Temperature Source Temporal Temporal Temporal Pulse Rate 75 75 75 Respiratory Rate 20 H 20 H 20 H Blood Pressure 159/55 H 159/55 H 159/55 H Blood Pressure Mean 89 89 89 Pulse Ox 96 96 96 Oxygen Delivery Method Room Air Room Air Room Air 11/23/23 14:15 11/23/23 16:11 11/23/23 18:00 Temperature 97.4 F L Temperature Source Temporal Pulse Rate 75 75 81 Respiratory Rate 20 H 20 H 20 H Blood Pressure 159/55 H 128/38 H 133/81 H Blood Pressure Mean 89 68 98 Pulse Ox 96 99 98 Oxygen Delivery Method Room Air Room Air Room Air 11/23/23 19:13 Temperature 99.6 F H Temperature Source Oral Pulse Rate 80 Respiratory Rate 20 H Blood Pressure 141/76 H Blood Pressure Mean 97 Pulse Ox 98 Oxygen Delivery Method Room Air <Dr. Abdelrahman Jeter MD - Last Filed: 11/23/23 20:07> Physical Exam Const Vital Signs: 11/23/23 14:12 11/23/23 14:11 11/23/23 14:11 Temperature 97.4 F L 97.4 F L 97.4 F L Temperature Source Temporal Temporal Temporal Pulse Rate 75 75 75 Respiratory Rate 20 H 20 H 20 H Blood Pressure 159/55 H 159/55 H 159/55 H Blood Pressure Mean 89 89 89 Pulse Ox 96 96 96 Oxygen Delivery Method Room Air Room Air Room Air 11/23/23 14:15 11/23/23 16:11 11/23/23 18:00 Temperature 97.4 F L Temperature Source Temporal Pulse Rate 75 75 81 Respiratory Rate 20 H 20 H 20 H Blood Pressure 159/55 H 128/38 H 133/81 H Blood Pressure Mean 89 68 98 Pulse Ox 96 99 98 Oxygen Delivery Method Room Air Room Air Room Air 11/23/23 19:13 Temperature 99.6 F H Temperature Source Oral Pulse Rate 80 Respiratory Rate 20 H Blood Pressure 141/76 H Blood Pressure Mean 97 Pulse Ox 98 Oxygen Delivery Method Room Air [facility] <DICK Henry - Last Filed: 11/23/23 19:50> [facility] Narrative Medical decision making narrative: History gathered from: Patient, spouse Differential: Persistent diverticulitis, worsening abscess, perforation Patient had recent sigmoid diverticulitis with small abscess treated with IV Zosyn and Augmentin at [facility]. Today during a bowel movement she developed increased left lower quadrant pain. She appears uncomfortable but nontoxic. Afebrile and hemodynamically stable. She is tender in the left lower quadrant with no peritoneal signs. Electrolytes and renal function are normal. Glucose 114. test is negative. Due to leukocytosis lactate and blood cultures ordered. Lactate is 2.0. She was empirically covered with IV Zosyn while awaiting CT scan results. CT scan shows acute sigmoid diverticulitis. There is no evidence of abscess. Patient has failed outpatient treatment of this condition and will require admission. The hospitalist requested stool studies which will be added if she provides a sample. She was admitted in stable condition. I have personally performed a face to face assessment of the patient and have reviewed the EMANUEL Note. I performed a substantive portion of the visit including all aspects of the following. My thompson findings include: History is remarkable for diverticulitis with diverticular abscess. Abscess was 2.9 cm. Patient states the do not drain abscess less than 4 cm. She was admitted and treated with IV Zosyn. She was discharged on Augmentin. She has 1 more day of Augmentin. Today she developed abrupt onset of pain. She denies fever or chills. She did have sweats when she had the pain. Walking causes her pain. Coughing causes her pain. Subjectively she complains of fever. She denies headache, visual, ocular auditory symptoms. She denies upper respiratory tract infectious symptoms. She denies dysuria, frequency, urgency or hematuria. She denies blood or mucus in her stool. Denies black or maroon- colored stool. Patient has history of depression and diverticulitis. Exam is patient is a large woman. She appears uncomfortable. HEENT exam is remarkable for tacky/dry mucosa. Heart is regular without murmur, gallop or rub. Lungs are clear to auscultation breath sounds are diminished most likely due to body habitus. Patient has peritoneal findings on abdominal exam. Bowel sounds are diminished. There is no bruising noted. Medical Decision Making with patient having recent diagnosis of diverticulitis no diverticular abscess abrupt onset of pain concern patient may have perforation in light of the fact that she has peritoneal findings. Will obtain CBC BMP and CT of the abdomen with IV contrast to evaluate. Records from [facility] were obtained through [facility]. Prior to most recent admission patient had a uncomplicated course of diverticulitis managed by p.o. antibiotics in 2017. CTA was performed which revealed a complicated sigmoid diverticulitis with a 2.9 cm abscess. White count at the time was 15,000. Patient has surgical history of laparoscopic appendectomy, laparoscopic cholecystectomy and laparoscopic gastric sleeve. Other additions or changes: [None] Lab Data Labs: Laboratory Results - last 24 hr 11/23/23 11/23/23 11/23/23 15:30 16:50 17:55 WBC 19.2 H RBC 5.23 Hgb 13.6 Hct 42.9 MCV 82.0 MCH 26.0 L MCHC 31.7 L RDW Std Deviation 40.2 RDW Coeff of Yuliana 13.7 Plt Count 323 MPV 10.8 Immature Gran % (Auto) 0.300 Neut % (Auto) 80.9 H Lymph % (Auto) 14.6 L Page % (Auto) 3.5 Eos % (Auto) 0.3 Baso % (Auto) 0.4 Absolute Neuts (auto) 15.5 H Absolute Lymphs (auto) 2.80 Nucleated RBC % 0 Sodium 138 Potassium 3.8 Chloride 111 H Carbon Dioxide 22.0 Anion Gap 5 BUN 15 Creatinine 0.78 Est GFR (MDRD) Af Amer 109 Est GFR (MDRD) Non-Af 90 BUN/Creatinine Ratio 19.3 Glucose 114 H Lactic Acid 2.0 Calcium 8.5 Total Bilirubin 0.40 AST 12 L ALT 31 Alkaline Phosphatase 68 Total Protein 7.5 Albumin 3.4 Globulin 4.1 Albumin/Globulin Ratio 0.8 L Serum , Qual NEGATIVE Urine Color Yellow Urine Clarity Clear Urine pH 5.0 Ur Specific [place] 1.020 Urine Protein 15 H Urine Glucose (UA) Normal Urine Ketones Negative Urine Occult Blood 10 H Urine Nitrite Negative Urine Bilirubin Negative Urine Urobilinogen Normal Ur Leukocyte Esterase Negative Urine RBC 0 SEEN Urine WBC 0 SEEN Ur Squamous Epith Cells 0-5 SEEN Urine Bacteria 0 SEEN Urine Mucus 0 SEEN Radiography Diagnostic Testing: Clinical Impression(s) from Imaging Studies Abdomen/Pelvis CT 11/23/23 14:36 IMPRESSION: Sigmoid diverticulitis. No obstruction or abscess. Electronically Signed: Kev Wallace MD at 18:30 EDT Reading Location ID and State: [facility] / MD , Service support , <Dr. Abdelrahman Jeter MD - Last Filed: 11/23/23 20:07> [facility] MDM Narrative Medical decision making narrative: History gathered from: Patient, spouse Patient had recent sigmoid diverticulitis with small abscess treated with IV Zosyn and Augmentin. Today during a bowel movement developed increased left lower quadrant pain. She appears uncomfortable but nontoxic. Afebrile and hemodynamically stable. She is tender in the left lower quadrant with no peritoneal signs. I have personally performed a face to face assessment of the patient and have reviewed the EMANUEL Note. I performed a substantive portion of the visit including all aspects of the following. My thompson findings include: History is remarkable for diverticulitis with diverticular abscess. Abscess was 2.9 cm. Patient states the do not drain abscess less than 4 cm. She was admitted and treated with IV Zosyn. She was discharged on Augmentin. She has 1 more day of Augmentin. Today she developed abrupt onset of pain. She denies fever or chills. She did have sweats when she had the pain. Walking causes her pain. Coughing causes her pain. Subjectively she complains of fever. She denies headache, visual, ocular auditory symptoms. She denies upper respir atory tract infectious symptoms. She denies dysuria, frequency, urgency or hematuria. She denies blood or mucus in her stool. Denies black or maroon- colored stool. Patient has history of depression and diverticulitis. Exam is patient is a large woman. She appears uncomfortable. HEENT exam is remarkable for tacky/dry mucosa. Heart is regular without murmur, gallop or rub. Lungs are clear to auscultation breath sounds are diminished most likely due to body habitus. Patient has peritoneal findings on abdominal exam. Bowel sounds are diminished. There is no bruising noted. Medical Decision Making with patient having recent diagnosis of diverticulitis no diverticular abscess abrupt onset of pain concern patient may have perforation in light of the fact that she has peritoneal findings. Will obtain CBC BMP and CT of the abdomen with IV contrast to evaluate. Records from [facility] were obtained through [facility]. Prior to most recent admission patient had a uncomplicated course of diverticulitis managed by p.o. antibiotics in 2017. CTA was performed which revealed a complicated sigmoid diverticulitis with a 2.9 cm abscess. White count at the time was 15, 000. Patient has surgical history of laparoscopic appendectomy, laparoscopic cholecystectomy and laparoscopic gastric sleeve. Other additions or changes: [None] Lab Data Labs: Laboratory Results - last 24 hr 11/23/23 11/23/23 11/23/23 15:30 16:50 17:55 WBC 19.2 H RBC 5.23 Hgb 13.6 Hct 42.9 MCV 82.0 MCH 26.0 L MCHC 31.7 L RDW Std Deviation 40.2 RDW Coeff of Yuliana 13.7 Plt Count 323 MPV 10.8 Immature Gran % (Auto) 0.300 Neut % (Auto) 80.9 H Lymph % (Auto) 14.6 L Page % (Auto) 3.5 Eos % (Auto) 0.3 Baso % (Auto) 0.4 Absolute Neuts (auto) 15.5 H Absolute Lymphs (auto) 2.80 Nucleated RBC % 0 Sodium 138 Potassium 3.8 Chloride 111 H Carbon Dioxide 22.0 Anion Gap 5 BUN 15 Creatinine 0.78 Est GFR (MDRD) Af Amer 109 Est GFR (MDRD) Non-Af 90 BUN/Creatinine Ratio 19.3 Glucose 114 H Lactic Acid 2.0 Calcium 8.5 Total Bilirubin 0.40 AST 12 L ALT 31 Alkaline Phosphatase 68 Total Protein 7.5 Albumin 3.4 Globulin 4.1 Albumin/Globulin Ratio 0.8 L Serum , Qual NEGATIVE Urine Color Yellow Urine Clarity Clear Urine pH 5.0 Ur Specific [place] 1.020 Urine Protein 15 H Urine Glucose (UA) Normal Urine Ketones Negative Urine Occult Blood 10 H Urine Nitrite Negative Urine Bilirubin Negative Urine Urobilinogen Normal Ur Leukocyte Esterase Negative Urine RBC 0 SEEN Urine WBC 0 SEEN Ur Squamous Epith Cells 0-5 SEEN Urine Bacteria 0 SEEN Urine Mucus 0 SEEN Radiography Diagnostic Testing: Clinical Impression(s) from Imaging Studies Abdomen/Pelvis CT 11/23/23 14:36 IMPRESSION: Sigmoid diverticulitis. No obstruction or abscess. Electronically Signed: Kev Wallace MD at 18:30 EDT , Discharge Plan Triage Chief Complaint: Abd Pain ED Midlevel Provider: Ale Gee ED Provider: Abdelrahman Jeter Dx/Rx/DC Orders Clinical Impression: Failure of outpatient treatment, Diverticulitis of sigmoid colon, Hypertension Prescriptions: No Action fluoxetine 40 mg capsule 40 mg PO DAILY amoxicillin-pot clavulanate [Augmentin] 500-125 mg tablet 1 tab PO BID Primary Care Provider: Francy Hickey NP Referrals: Francy Hickey NP, EXTENSION COURSE COORDINATOR-C [Primary Care Provider] - Disposition Disposition: Acute Care Hospital [facility]
[2023-11-23] MEDS: Ondansetron 4 MG/2 ML Vial IV (15:10)
[2023-11-23] MEDS: HYDROmorphone 1 MG/ML Syringe IV ×2 (15:10→21:08)
[2023-11-23] MEDS: 0.9% Normal Saline (1000mL) 1,000 ML 999 ML IV (15:11)
[2023-11-23 15:40] LABS: Absolute Neutrophil Count 15.5 X10^3/uL (2.0-7.7); Basophil# 0.08 X10^3/uL; Basophil% 0.4 % (0-1); Eosinophil# 0.06 X10^3/uL; Eosinophils% 0.3 % (0-5); Hematocrit 42.9 % (37-47); Hemoglobin 13.6 g/dL (12.0-15.0); Lymphocyte % 14.6 % (19-41); Mean Corp Hgb Conc 31.7 g/dL (32-36); Mean Platelet Vol. 10.8 fl (6.2-12.0); Monocyte# 0.67 X10^3/uL; Monocyte% 3.5 % (0-10); NRBC Flagged by Analyzer 0 % (0-5); Neutrophil # 15.49 X10^3/uL (2.7-7.7); Neutrophil % 80.9 % (47-70); Platelet Count 323 K/mm3 (150-450); RBC Distribution Width CV 13.7 % (11.6-14.6); RBC Distribution Width SD 40.2 fl (35.1-43.9); Red Blood Count 5.23 M/mm3 (4.2-5.4); White Blood Count 19.2 K/mm3 (4.4-11.0)
[2023-11-23 16:01] LABS: ALB/GLOB Ratio 0.8 RATIO (0.9-2.4); AST(SGOT) 12 U/L (15-37); Alanine Aminotransfer ALT/SGPT 31 U/L (13-56); Albumin, Serum 3.4 g/dL (3.2-5.0); Alkaline Phosphatase 68 U/L (45-117); Anion Gap 5 (5-15); BUN 15 mg/dL (7-18); BUN/Creat Ratio 19.3 RATIO (10-20); Calcium,Total 8.5 mg/dL (8.5-10.1); Chloride 111 mmol/L (98-107); Creatinine, Serum 0.78 mg/dL (0.55-1.02); EST Glomerular Filtration Rate 90 mL/min (>60); Est Glom Filt Rate - Afr Amer 109 mL/min (>60); Globulin 4.1 g/dL (2.2-4.2); Glucose 114 mg/dL (74-106); Potassium 3.8 mmol/L (3.5-5.1); Protein, Total 7.5 g/dL (6.4-8.2); Sodium Level 138 mmol/L (136-145)
[2023-11-23 16:04] LABS: Internal QC Validated? YES +Cl - CLEAR BKGD; Pregnancy, Serum, hCG Quali. NEGATIVE Negative
[2023-11-23] MEDS: HYDROmorphone 0.5 MG/0.5 ML SYRINGE IV ×2 (16:18→18:22)
[2023-11-23] MEDS: Piperacil/Tazobactam 3.375 GM in 0.9% Normal Saline (50mL MB+) 50 ML IV (17:01)
[2023-11-23 18:02] LABS: Bacteria 0 SEEN /hpf (None Seen); Mucous, Urine 0 SEEN /hpf (<or=2+); Red Blood Cells-Urine 0 SEEN /hpf (0-5); White Blood Cells 0 SEEN /hpf (0-5)
[2023-11-23 18:16] LABS: Color, Urine Yellow (Yellow); Glucose, Dipstick Normal (Normal); Ketone-Dipstick Negative (Negative); Leukocyte Esterase-Dipstick Negative /ul (Negative); Nitrite-Dipstick Negative (Negative); Occult Blood-Urine 10 /ul (Negative); Protein-Dipstick 15 mg/dl (Negative); Urine Bilirubin Dipstick Negative (Negative); Urine Clarity Clear (Clear); Urine Urobilinogen Normal (Normal)
[2023-11-23 18:30] LABS: Squamous Epithelial Cells - UA 0-5 SEEN /hpf (5-10)
[2023-11-23] MEDS: Ketorolac 30 MG/ML Syringe IV (19:12)
--- NOTE | 2023-11-23 19:59 | ED.RN ---
taking over care of pt at 1900 and noticed that antibiotics were infused and 1 set of blood cultures were drawn. called lab to verify they only received 1 set. aware that 1 set were obtained d/t difficulty. Had given the okay to infuse antibiotic.
[2023-11-23 21:15] LABS: Reflex Lactate? Y
--- NOTE | 2023-11-23 22:11 | PCM.HP.STD ---
HPI - General HPI Narrative RASHEEDA LEVY, is a 33 F who presents with lower abdominal pain. The patient was recently admitted for 4 days at [facility] for diverticulitis with abscess. It was not drained due to small size. She was started on Augmentin and sent home. She was doing well for this following 4 days and then today she was having a bowel movement and started having a lot of pain. She reports no nausea or vomiting. She reports that the pain is in the lower abdomen. [facility] Medical History (Updated 11/23/23 @ 20:[address] Abdelrahman Jeter MD) Anxiety Diverticulitis Home Medications fluoxetine 40 mg capsule 40 mg PO DAILY 05/26/22 [History Last Taken 11/22/23] amoxicillin 500 mg-potassium clavulanate 125 mg tablet (Augmentin) 1 tab PO BID 11/23/23 [History Last Taken 11/22/23] sumatriptan succinate 50 mg tablet 50 mg PO PRN PRN migraine headache 11/23/23 [History Last Taken Unknown] Allergy/AdvReac Type Severity Reaction Status Date / Time adhesive Allergy Rash Verified 11/23/23 14:15 lisinopril AdvReac GI upset Verified 11/23/23 14:15 Social History Smoking Status: Never smoker ROS Constitutional Constitutional: Denies anorexia, chills or fatigue Eyes Eyes: Denies blurry vision ENT HEENT: Denies abnormal hearing Cardiovascular Cardiovascular: Denies chest pain Respiratory/Chest Respiratory/Chest: Denies cough or dyspnea Gastrointestinal Gastrointestinal: Reports abdominal pain; Denies diarrhea, dysphagia, nausea or vomiting Genitourinary Genitourinary: Denies change in urinary stream Musculoskeletal Musculoskeletal: Denies abnormal gait Integumentary Integumentary: Denies jaundice Neurologic Neurologic: Denies abnormal gait Vital Signs Vital Signs Vital Signs: 11/23/23 14:12 11/23/23 14:11 11/23/23 14:11 Temperature 97.4 F L 97.4 F L 97.4 F L Temperature Source Temporal Temporal Temporal Pulse Rate 75 75 75 Respiratory Rate 20 H 20 H 20 H Blood Pressure 159/55 H 159/55 H 159/55 H Blood Pressure Mean 89 89 89 Pulse Ox 96 96 96 Oxygen Delivery Method Room Air Room Air Room Air 11/23/23 14:15 11/23/23 16:11 11/23/23 18:00 Temperature 97.4 F L Temperature Source Temporal Pulse Rate 75 75 81 Respiratory Rate 20 H 20 H 20 H Blood Pressure 159/55 H 128/38 H 133/81 H Blood Pressure Mean 89 68 98 Pulse Ox 96 99 98 Oxygen Delivery Method Room Air Room Air Room Air 11/23/23 19:13 11/23/23 20:08 Temperature 99.6 F H 99.6 F H Temperature Source Oral Pulse Rate 80 92 Respiratory Rate 20 H 20 H Blood Pressure 141/76 H 126/62 H Blood Pressure Mean 97 83 Pulse Ox 98 95 Oxygen Delivery Method Room Air Weight Weight: 353 lb 2.888 oz Body Mass Index (BMI) 62.5 Physical Exam Const oriented x3 and no apparent distress Resp normal respiratory effort Cardio regular rate and regular rhythm GI soft to palpation Inspection: Negative for abdominal distention Palpation: tender LLQ and RLQ Results Lab / Micro Data 11/23/23 15:30 11/23/23 15:30 Labs: Laboratory Results - last 24 hr 11/23/23 15:30: WBC 19.2 H, RBC 5.23, Hgb 13.6, Hct 42.9, MCV 82.0, MCH 26.0 L, MCHC 31.7 L, RDW Std Deviation 40.2, RDW Coeff of Yuliana 13.7, Plt Count 323, MPV 10.8, Immature Gran % (Auto) 0.300, Neut % (Auto) 80.9 H, Lymph % (Auto) 14.6 L, [place] % (Auto) 3.5, Eos % (Auto) 0.3, Baso % (Auto) 0.4, Absolute Neuts (auto) 15.5 H, Absolute Lymphs (auto) 2.80, Nucleated RBC % 0, Sodium 138, Potassium 3.8, Chloride 111 H, Carbon Dioxide 22.0, Anion Gap 5, BUN 15, Creatinine 0.78, Est GFR (MDRD) Af Amer 109, Est GFR (MDRD) Non-Af 90, BUN/Creatinine Ratio 19.3, Glucose 114 H, Calcium 8.5, Total Bilirubin 0.40, AST 12 L, ALT 31, Alkaline Phosphatase 68, Total Protein 7.5, Albumin 3.4, Globulin 4.1, Albumin/Globulin Ratio 0.8 L, Serum , Qual NEGATIVE 11/23/23 16:50: Lactic Acid 2.0 11/23/23 17:55: Urine Color Yellow, Urine Clarity Clear, Urine pH 5.0, Ur Specific [place] 1.020, Urine Protein 15 H, Urine Glucose (UA) Normal, Urine Ketones Negative, Urine Occult Blood 10 H, Urine Nitrite Negative, Urine Bilirubin Negative, Urine Urobilinogen Normal, Ur Leukocyte Esterase Negative, Urine RBC 0 SEEN, Urine WBC 0 SEEN, Ur Squamous Epith Cells 0-5 SEEN, Urine Bacteria 0 SEEN, Urine Mucus 0 SEEN 11/23/23 21:30: Lactic Acid 2.0 Imaging Radiology Impression Abdomen/Pelvis CT 11/23/23 14:36 IMPRESSION: Sigmoid diverticulitis. No obstruction or abscess. Electronically Signed: Kev Wallace MD at 18:30 EDT , Assessment & Plan Assessment/Plan (1) Diverticulitis of sigmoid colon: PLAN: The patient has diverticulitis of the sigmoid colon. There are few small bubbles of free air on CT scan. There is also some inflammation in the sigmoid colon. The patient is tender in the lower abdomen. Vital signs are stable. I discussed surgery with her. I discussed laparoscopic surgery with possible conversion open and need for possible stoma. I informed her that due to her weight I may have to convert to open surgery and that her risks of infection and PE and DVT also elevated with her weight. We called [facility] for transfer at the patient's request. The patient is an employee of [employer] and was recently just discharged from [facility] and had her 3 prior surgeries done at [facility] after being transferred from their outside hospitals due to her weight. Patient has a BMI of 62 and she is very concerned about having surgery here. I discussed this with Dr. Berg at [facility] who is on-call for colorectal. He advised me to admit the patient and start IV antibiotics and continue to observe. He said he would like it to try to calm down and to see if this can be treated nonoperatively at first and have elective surgery. I discussed this with the patient and she is in agreement with that plan. He asked me to call him back if her condition worsens at all to try to expedite transfer. I will admit her to the hospital to observe until transfer can be obtained. I will start her on antibiotics and keep her n.p.o. and IV fluids. Once bed became is available she will be transferred to [facility] [place]. If she starts feeling better tomorrow and her white count is coming down she may be able to go see the colorectal electively. If anything worsens I will call [facility] to see if I can expedite transfer versus discussing surgery here. Darren Lynch MD Pager: [facility] [address] [place] [address], [address] [place] [address] Office:
[2023-11-24] VITALS (7 sets, daily range): BP systolic 130–143; BP diastolic 71–76; PULSE 88–104; RESP 16–20; TEMP 36.8–37.3; O2SAT 79–98
[2023-11-24] MEDS: HYDROmorphone 1 MG/ML Syringe IV ×5 (00:44→14:36)
[2023-11-24] MEDS: 0.9% Normal Saline (1000mL) 1,000 ML 125 ML IV ×2 (00:47→09:08)
[2023-11-24 06:00] LABS: Absolute Lymphocyte Count 1.76 X10^3/uL (0.83-4.51); Absolute Neutrophil Count 18.5 X10^3/uL (2.0-7.7); Basophil# 0.06 X10^3/uL; Basophil% 0.3 % (0-1); Eosinophil# 0.01 X10^3/uL; Hematocrit 40.4 % (37-47); Hemoglobin 12.5 g/dL (12.0-15.0); Lymphocyte # 1.76 X10^3/ul (0.83-4.51); Lymphocyte % 8.2 % (19-41); Mean Corp Hgb Conc 30.9 g/dL (32-36); Mean Corpuscular Hgb 25.9 pg (27.0-32.0); Mean Corpuscular Volume 83.8 fL (81-99); Mean Platelet Vol. 10.8 fl (6.2-12.0); Monocyte# 0.98 X10^3/uL; Monocyte% 4.6 % (0-10); NRBC Flagged by Analyzer 0 % (0-5); Neutrophil # 18.47 X10^3/uL (2.7-7.7); Neutrophil % 86.4 % (47-70); Platelet Count 300 K/mm3 (150-450); RBC Distribution Width CV 13.9 % (11.6-14.6); RBC Distribution Width SD 42.5 fl (35.1-43.9); Red Blood Count 4.82 M/mm3 (4.2-5.4); White Blood Count 21.4 K/mm3 (4.4-11.0)
[2023-11-24] MEDS: Piperacil/Tazobactam 3.375 GM in 0.9% Normal Saline (50mL MB+) 50 ML IV ×2 (06:15→13:25)
[2023-11-24 06:20] LABS: Anion Gap 4 (5-15); BUN 12 mg/dL (7-18); BUN/Creat Ratio 17.7 RATIO (10-20); Calcium,Total 8.6 mg/dL (8.5-10.1); Chloride 112 mmol/L (98-107); Creatinine, Serum 0.68 mg/dL (0.55-1.02); EST Glomerular Filtration Rate 106 mL/min (>60); Est Glom Filt Rate - Afr Amer 128 mL/min (>60); Estimated Creatinine Clearance 172.36 ml/min; Glucose 121 mg/dL (74-106); Potassium 4.2 mmol/L (3.5-5.1); Sodium Level 139 mmol/L (136-145)
[2023-11-24] MEDS: Ondansetron 4 MG/2 ML Vial IV (06:20)
--- NOTE | 2023-11-24 06:42 | CT_ITS ---
STUDY: CT ABDOMEN AND PELVIS WITHOUT CONTRAST REASON FOR EXAM: Female, 33 years old. Diverticulitis with microperf -- RADIATION DOSAGE (If Supplied By Facility): CTDIvol = ( 24.18 ) mGy, DLP = ( 1455.90 ) mGycm TECHNIQUE: Transaxial images were obtained from the dome of the diaphragm to the symphysis pubis without oral contrast, and without intravenous contrast. Sagittal and coronal images were reconstructed. Individualized dose optimization techniques were used for this CT. COMPARISON: November 23, 2023. FINDINGS: The visualized lung bases are unremarkable. The visualized portions of the heart are within normal limits. There is hepatomegaly with diffuse hepatic enlargement. Normal gallbladder and extrahepatic biliary system. Normal spleen. Normal pancreas. Normal bilateral adrenal glands. Normal right kidney. Normal left kidney. Normal visualized stomach. Normal small intestine. There is diverticulosis, with thickening of the sigmoid colon wall, and pericolonic inflammation changes consistent with acute diverticulitis. There are stable small foci of extraluminal air consistent with microperforation. There are surgical clips in the region of the appendix consistent with a prior appendectomy. Normal abdominal aorta. Normal inferior vena cava. Normal retroperitoneum. Normal urinary bladder. There is IUD in the uterus. Normal abdominal wall. Normal osseous structures. CT/Abdomen/Pelvis without Cont IMPRESSION: Stable acute diverticulitis with microperforation. No abscess or fluid collection. Electronically Signed: Kev Wallace MD at 8:42 EDT ,
[2023-11-24] MEDS: proCHLORPERazine 10 MG/2 ML Vial IV ×2 (08:31→14:36)
--- NOTE | 2023-11-24 09:46 | EKG12_ITS ---
Test Reason : GENERAL Blood Pressure : / mmHG Vent. Rate : 075 BPM Atrial Rate : 075 BPM P-R Int : 168 ms QRS Dur : 096 ms QT Int : 376 ms P-R-T Axes : 046 059 040 degrees QTc Int : 419 ms Sinus rhythm with marked sinus arrhythmia Otherwise normal ECG When compared with ECG of 24-SEP-2023 13:32, No significant change was found Confirmed by VEENA AMADO ([id number]), editor greeting card NILDA MCLEOD ([id number]) on 11/27/2023 9:33:08 AM Referred By: TYSON Confirmed By:VEENA AMADO
[2023-11-24] MEDS: 0.9% Normal Saline (1000mL) 1,000 ML 999 ML IV (11:13)
--- NOTE | 2023-11-24 12:18 | NURSING ---
called lab looking for CBCD stat results- aware the first tech was unable to obtain and another tech on way up to draw.
--- NOTE | 2023-11-24 13:53 | NURSING ---
attempted to call report to [facility], nurse unable to take report at this time and stated she would call back for report.
[2023-11-24] MEDS: 0.9% Saline Lock 10 ML Syringe IV (14:36)
--- NOTE | 2023-11-24 14:52 | PN.SURG_ITS ---
Subjective Subjective I came in earlier this morning and the patient was still having severe pain and noted that she was starting to have tachycardia. The CBC showed increasing white count. She also had a low-grade fever 99.6 patient reported a lot more significant pain this morning. Objective Data Objective Data Vital Signs: Vital Signs Temp Pulse Resp BP Pulse Ox O2 Del Method O2 Flow Rate 98.2 F 95 16 143/72 H 95 Nasal Cannula 2 11/24/23 11:28 11/24/23 11:28 11/24/23 11:28 11/24/23 11:28 11/24/23 11:28 11/24/23 13:28 11/24/23 13:28 Oxygen Flow Rate (L/min) 2 Oxygen Delivery Method Nasal Cannula Weight: 350 lb 8.56 oz Body Mass Index (BMI) 62.1 Intake & Output: Intake and Output for Last 24 Hours 11/22/23 11/23/23 11/24/23 23:59 23:59 23:59 Intake Total 1050 / 1050 2312.5 / 2312.5 Balance 1050 / 1050 2312.5 / 2312.5 Lab / Micro Data 11/24/23 05:40 11/24/23 05:40 Labs: Laboratory Results - last 24 hr 11/23/23 15:30: WBC 19.2 H, RBC 5.23, Hgb 13.6, Hct 42.9, MCV 82.0, MCH 26.0 L, MCHC 31.7 L, RDW Std Deviation 40.2, RDW Coeff of Yuliana 13.7, Plt Count 323, MPV 10.8, Immature Gran % (Auto) 0.300, Neut % (Auto) 80.9 H, Lymph % (Auto) 14.6 L, Erath % (Auto) 3.5, Eos % (Auto) 0.3, Baso % (Auto) 0.4, Absolute Neuts (auto) 15.5 H, Absolute Lymphs (auto) 2.80, Nucleated RBC % 0, Sodium 138, Potassium 3.8, Chloride 111 H, Carbon Dioxide 22.0, Anion Gap 5, BUN 15, Creatinine 0.78, Est GFR (MDRD) Af Amer 109, Est GFR (MDRD) Non-Af 90, BUN/Creatinine Ratio 19.3, Glucose 114 H, Calcium 8.5, Total Bilirubin 0.40, AST 12 L, ALT 31, Alkaline Phosphatase 68, Total Protein 7.5, Albumin 3.4, Globulin 4.1, Albumin/Globulin Ratio 0.8 L, Serum , Qual NEGATIVE 11/23/23 16:50: Lactic Acid 2.0 11/23/23 17:55: Urine Color Yellow, Urine Clarity Clear, Urine pH 5.0, Ur Specific Reagan 1.020, Urine Protein 15 H, Urine Glucose (UA) Normal, Urine Ketones Negative, Urine Occult Blood 10 H, Urine Nitrite Negative, Urine Bilirubin Negative, Urine Urobilinogen Normal, Ur Leukocyte Esterase Negative, Urine RBC 0 SEEN, Urine WBC 0 SEEN, Ur Squamous Epith Cells 0-5 SEEN, Urine Bacteria 0 SEEN, Urine Mucus 0 SEEN 11/23/23 21:30: Lactic Acid 2.0 11/24/23 05:40: WBC 21.4 H, RBC 4.82, Hgb 12.5, Hct 40.4, MCV 83.8, MCH 25.9 L, MCHC 30.9 L, RDW Std Deviation 42.5, RDW Coeff of Yuliana 13.9, Plt Count 300, MPV 10.8, Immature Gran % (Auto) 0.500, Neut % (Auto) 86.4 H, Lymph % (Auto) 8.2 L, Erath % (Auto) 4.6, Eos % (Auto) 0.0, Baso % (Auto) 0.3, Absolute Neuts (auto) 18.5 H, Absolute Lymphs (auto) 1.76, Nucleated RBC % 0, Sodium 139, Potassium 4.2, Chloride 112 H, Carbon Dioxide 23.0, Anion Gap 4 L, BUN 12, Creatinine 0.68, Estim Creat Clear Calc 172.36, Est GFR (MDRD) Af Amer 128, Est GFR (MDRD) Non-Af 106, BUN/Creatinine Ratio 17.7, Glucose 121 H, Calcium 8.6 Radiography Diagnostic Testing: Radiology Impression Abdomen/Pelvis CT 11/23/23 14:36 IMPRESSION: Sigmoid diverticulitis. No obstruction or abscess. Electronically Signed: Kev Wallace MD at 18:30 EDT , ADDENDUM: 11/24/23 0850 IMPRESSION: undefined Abdomen/Pelvis CT 11/24/23 06:42 IMPRESSION: Stable acute diverticulitis with microperforation. No abscess or fluid collection. Electronically Signed: Kev Wallace MD at 8:42 EDT Reading Location ID and State: [facility] / [place] , Service support , Physical Exam Const oriented x3 and no apparent distress Resp normal respiratory effort GI soft to palpation Palpation: tender Assessment & Plan Assessment/Plan (1) Diverticulitis of sigmoid colon: PLAN: The patient was having more severe pain and her white count went up today. I repeated a CT scan this morning which showed that it was stable but the patient was having more pain as the day went on became more tachycardic. I ordered a fluid bolus and nausea medications and I made several calls to [facility] to discuss her case. I discussed performing a laparotomy to remove the colon with her. She said she would have been willing to go through with it but really preferred to go to the [facility] because of her weight and she has been at [facility] for all of her surgeries. They did find a bed for her and transport is being arranged for this afternoon. Darren Lynch MD Pager: [facility] [address] [place] [address], [address] [place] [address] Office:
--- NOTE | 2023-11-24 15:49 | NURSING ---
pt being transferred with iv and antibiotics running.
== END 2023-11-24 16:24 | disposition short-term general hospital (02) | DRG 392 ==
LOC: ED 20:07 → MS3 22:58
PROVIDERS: Physician Assistant; Admitting Provider Surgery; Emergency Provider Emergency Medicine; PCP Registered Nurse; Visit Provider Surgery
DX: K57.32 Diverticulitis of large intestine without perforation or abscess without bleeding (principal); Z68.44 Body mass index [BMI] 60.0-69.9, adult; E66.01 Morbid (severe) obesity due to excess calories; I10 Essential (primary) hypertension; F41.9 Anxiety disorder, unspecified; R50.9 Fever, unspecified; R00.0 Tachycardia, unspecified; Z79.899 Other long term (current) drug therapy; Z87.19 Personal history of other diseases of the digestive system; Z98.84 Bariatric surgery status; Z90.49 Acquired absence of other specified parts of digestive tract
CPT/HCPCS: 36415; 74176; 74177; 80048; 80053; 81001; 83605; 84703; 85025; 87040; 93005; 99283; J7030; Q9967; A4216; J2405